=== PATIENT | male | born 1960 | race Two or more races ===

== ENCOUNTER → 2020-03-21 10:57 | Outpatient (BNVA) | payer OTHER, SELFPAY | PROVIDERS: PCP Physician Assistant; Visit Provider Family Medicine Adult Medicine | DX: M54.16 Radiculopathy, lumbar region (principal); M06.9 Rheumatoid arthritis, unspecified; B20 Human immunodeficiency virus [HIV] disease; Z79.891 Long term (current) use of opiate analgesic | CPT/HCPCS: 99214 ==

== ENCOUNTER → 2020-04-08 11:39 | Outpatient (BNVA) | payer OTHER, SELFPAY | PROVIDERS: PCP Physician Assistant; Referring Provider Physician Assistant; Visit Provider Nurse Practitioner | DX: K52.9 Noninfective gastroenteritis and colitis, unspecified (principal); D12.6 Benign neoplasm of colon, unspecified; B20 Human immunodeficiency virus [HIV] disease | CPT/HCPCS: 99203 ==

== ENCOUNTER → 2020-05-28 14:36 | Outpatient (BNVA) | payer OTHER, SELFPAY | PROVIDERS: PCP Physician Assistant; Visit Provider Student in an Organized Health Care Education/Training Program | DX: Z13.89 Encounter for screening for other disorder (principal) | CPT/HCPCS: Q3014 ==

== ENCOUNTER → 2020-06-17 15:53 | Outpatient (BNVA) | payer OTHER, SELFPAY | PROVIDERS: PCP Physician Assistant; Visit Provider Family Medicine Adult Medicine | DX: M25.559 Pain in unspecified hip (principal); M54.16 Radiculopathy, lumbar region; M06.9 Rheumatoid arthritis, unspecified; B20 Human immunodeficiency virus [HIV] disease | CPT/HCPCS: 99212 ==

== ENCOUNTER 2020-06-18 15:17 | Outpatient (REF) | payer OTHER, SELFPAY ==
--- NOTE | 2020-06-18 15:41 | XR_ITS ---
EXAMINATION: XR HIP, RIGHT CLINICAL INFORMATION: Pain COMPARISON: XR pelvis dated 01/20/2019 TECHNIQUE: Two views of the right hip. FINDINGS: No acute fracture or dislocation. Femoral head is spherical. Mild joint space narrowing. Soft tissues unremarkable. XR/XR hip RT min 2V IMPRESSION: No acute fracture or dislocation. Mild right hip joint space narrowing.
[2020-06-18 16:01] LABS: MANUAL DIFF FLAG NO
[2020-06-18 16:02] LABS: Basophils Percent Auto 0.6 % (0-2); Eosinophils Absolute Auto 0.2 X10*3/uL (0.0-0.4); Eosinophils Percent Auto 2.9 % (0-4); Hematocrit 43.8 % (42-52); Hemoglobin 14.4 g/dl (14.0-18.0); Imm Gran Abs Auto 0.03 X10*3/uL (0.00-0.03); Imm Gran Pct Auto 0.4 % (0.0-0.4); Lymphocytes Absolute Auto 2.8 X10*3/uL (1.2-4.9); Lymphocytes Percent Auto 39.3 % (20-40); Mean Corpuscular HGB Conc 32.9 g/dl (31.0-36.0); Mean Corpuscular Hemoglobin 33.5 pg (27.0-33.0); Mean Corpuscular Volume 101.9 fL (80-98); Mean Platelet Volume 10.6 fL (9.4-12.4); Monocytes Absolute Auto 0.6 X10*3/uL (0.1-1.2); Monocytes Percent Auto 8.7 % (2-11); Neutrophils Absolute Auto 3.4 X10*3/uL (2.0-8.3); Neutrophils Percent Auto 48.1 % (45-73); Platelet Count 213 X10*3/uL (160-400); Red Cell Distribution Width 12.6 % (11.0-16.0); White Blood Count 7.1 X10*3/uL (4.8-10.8)
[2020-06-18 17:05] LABS: Alanine Aminotransferase 33 U/L (0-40); Albumin Level 4.4 g/dL (3.5-5.0); Alkaline Phosphatase 72 U/L (39-117); Anion Gap 10 (12-20); Aspartate Amino Transferase 26 U/L (5-37); Bilirubin Total 0.6 mg/dL (0.0-1.0); Blood Urea Nitrogen 15 mg/dL (9-16); Calcium 9.2 mg/dL (8.4-10.2); Carbon Dioxide 34 mmol/L (22-29); Chloride 101 mmol/L (96-108); Estimated Glomerular Filt Rate 53; Glucose Random 101 mg/dL (60-115); Potassium 4.3 mmol/l (3.3-5.1); Sodium 141 mmol/L (135-145)
== END 2020-06-18 15:18 | disposition home or self-care (01) ==
LOC: HO.LAB 15:17
PROVIDERS: Absent Provider Internal Medicine; PCP Physician Assistant; Visit Provider Nurse Practitioner
DX: M25.551 Pain in right hip (principal); K52.9 Noninfective gastroenteritis and colitis, unspecified; D12.6 Benign neoplasm of colon, unspecified
CPT/HCPCS: 36415; 73502; 80053; 85025

== ENCOUNTER 2020-06-26 08:07 | Day surgery (SDC) | payer OTHER, SELFPAY ==
[2020-06-24 15:03] VITALS: BMI 30.8
--- NOTE | 2020-06-25 09:16 | P.CONAN_ITS ---
Documented by User: Kimber Sanchez 06/25/20 09:21 HPI - Anesthesia Eval Consult details Narrative: 59yo M for Colonoscopy PMFSH Past Medical History Medical History Affective bipolar disorder Asthma Asymptomatic HIV infection Chronic colitis Depression Fibromyalgia HIV (human immunodeficiency virus infection) HTN (hypertension) Hypothyroid Left lumbar radiculopathy Overweight PTSD (post-traumatic stress disorder) Renal insufficiency Urinary frequency Family History Family History Father History of cirrhosis Mother History of high blood pressure History of diabetes mellitus History of asthma Surgical History Surgical History History of colonoscopy Social History Social History Alcohol intake: never Smoking Status: Never smoker Use of substances other than those prescribed or required for medical reasons: Yes Substance Use Type: Marijuana Substance Use Frequency: Weekly Advance Directives: No Advance Directives Information Provided: No Advance Directives on File: No Meds Allergies Allergy/AdvReac Type Severity Reaction Status Date / Time baclofen [BACLOFEN] Allergy Unknown SWOLLEN Verified 06/25/20 09:14 LEGS lithium [LITHIUM] Allergy Unknown ALMOST Verified 06/25/20 09:14 , body shuts down methadone [METHADONE] Allergy Unknown HIVES, Verified 06/25/20 09:14 swelling topiramate [From TOPAMAX] Allergy Unknown FAINT Verified 06/25/20 09:14 Amitryptiline Allergy Unknown sleepiness Uncoded 10/01/19 00:00 propranolol Allergy Unknown dizziness Uncoded 10/01/19 00:00 Home Medications Medication Instructions Recorded Confirmed Type alprazolam 1 mg tablet 1 mg PO QID PRN 03/11/20 06/25/20 History wktsrswdrt-ltotamqaqfnjk-sduzkylr 1 tab PO Q4H PRN 03/11/20 06/25/20 History 50 mg-325 mg-40 mg tablet emtricitabine 200 mg-rilpivirine 1 tab PO DAILY 03/11/20 06/25/20 History 25 mg-tenofovir alafenam 25 mg tablet fluticasone 250 mcg-salmeterol 50 1 inh INHALATION BID 03/11/20 06/25/20 History mcg/dose blistr powdr for inhalation lamotrigine 150 mg tablet 150 mg PO BID 03/11/20 06/25/20 History methocarbamol 750 mg tablet 750 mg PO TID 03/11/20 06/25/20 History multivitamin 1 tab PO DAILY 03/11/20 06/25/20 History cholecalciferol (vitamin D3) 25 25 mcg PO DAILY 03/21/20 06/25/20 History mcg (1,000 unit) tablet duloxetine 20 mg capsule,delayed 40 mg PO BID 03/21/20 06/25/20 History release zolpidem 10 mg tablet 10 mg PO BEDTIME 03/21/20 06/25/20 History ibuprofen 800 mg tablet 800 mg PO TID PRN tab 05/28/20 06/25/20 History levothyroxine 200 mcg tablet 200 mcg PO DAILY tab 05/28/20 06/25/20 History promethazine 25 mg tablet 25 mg PO PRN tab 05/28/20 06/25/20 History Exam Exam Date and Time: June 25, 2020 0916 Height,Weight and Vital Signs: Height 6 ft 2 in Weight 108.862 kg Pertinent Lab Results Pertinent Lab Results: Laboratory Tests 06/18/20 06/18/20 15:31 15:31 WBC 7.1 Hgb 14.4 Hct 43.8 Plt Count 213 Sodium 141 Potassium 4.3 Chloride 101 Carbon Dioxide 34 H BUN 15 Creatinine 1.37 Assessment and Plan Assessment Anesthesia Assessment: Chart Reviewed Documented by User: Jasmin Farias 06/26/20 08:55 [facility] Past Medical History Medical History Affective bipolar disorder Asthma Asymptomatic HIV infection Chronic colitis Depression Fibromyalgia HIV (human immunodeficiency virus infection) HTN (hypertension) Hypothyroid Left lumbar radiculopathy Overweight PTSD (post-traumatic stress disorder) Renal insufficiency Urinary frequency Family History Family History Father History of cirrhosis Mother History of high blood pressure History of diabetes mellitus History of asthma Surgical History Surgical History History of colonoscopy Social History Social History Alcohol intake: never Smoking Status: Never smoker Use of substances other than those prescribed or required for medical reasons: Yes Substance Use Type: Marijuana Substance Use Frequency: Weekly Advance Directives: No Advance Directives Information Provided: No Advance Directives on File: No Meds Allergies Allergy/AdvReac Type Severity Reaction Status Date / Time baclofen [BACLOFEN] Allergy Unknown SWOLLEN Verified 06/25/20 09:14 LEGS lithium [LITHIUM] Allergy Unknown ALMOST Verified 06/25/20 09:14 , body shuts down methadone [METHADONE] Allergy Unknown HIVES, Verified 06/25/20 09:14 swelling topiramate [From TOPAMAX] Allergy Unknown FAINT Verified 06/25/20 09:14 Amitryptiline Allergy Unknown sleepiness Uncoded 10/01/19 00:00 propranolol Allergy Unknown dizziness Uncoded 10/01/19 00:00 Home Medications Medication Instructions Recorded Confirmed Type alprazolam 1 mg tablet 1 mg PO QID PRN 03/11/20 06/25/20 History pylsngzdcr-mofmzrpsqqeyx-pgqifxac 1 tab PO Q4H PRN 03/11/20 06/25/20 History 50 mg-325 mg-40 mg tablet emtricitabine 200 mg-rilpivirine 1 tab PO DAILY 03/11/20 06/25/20 History 25 mg-tenofovir alafenam 25 mg tablet fluticasone 250 mcg-salmeterol 50 1 inh INHALATION BID 03/11/20 06/25/20 History mcg/dose blistr powdr for inhalation lamotrigine 150 mg tablet 150 mg PO BID 03/11/20 06/25/20 History methocarbamol 750 mg tablet 750 mg PO TID 03/11/20 06/25/20 History multivitamin 1 tab PO DAILY 03/11/20 06/25/20 History cholecalciferol (vitamin D3) 25 25 mcg PO DAILY 03/21/20 06/25/20 History mcg (1,000 unit) tablet duloxetine 20 mg capsule,delayed 40 mg PO BID 03/21/20 06/25/20 History release zolpidem 10 mg tablet 10 mg PO BEDTIME 03/21/20 06/25/20 History ibuprofen 800 mg tablet 800 mg PO TID PRN tab 05/28/20 06/25/20 History levothyroxine 200 mcg tablet 200 mcg PO DAILY tab 05/28/20 06/25/20 History promethazine 25 mg tablet 25 mg PO PRN tab 05/28/20 06/25/20 History Exam Airway Mallampati Class: II TM Dist: >3cm Neck ROM: Full Partial: Upper and Lower
[2020-06-26 08:32] VITALS: BP 173/95; PULSE 83; RESP 18; TEMP 35.8; O2SAT 98
[2020-06-26] MEDS: Lactated Ringers 1,000 ML 100 ML IVCONT (08:37)
--- NOTE | 2020-06-26 08:48 | P.HPSUR_ITS ---
Pre-Procedural Eval Section B Chief Complaint: Tubular Adenoma of Colon Relevant Family History (Specify if Yes): No Relevant Social History: Other (specify) (THC) Present Medications: see Short Stay Collaborative assessment Medical History: Significant History (Affective bipolar disorder Asthma Asymptomatic HIV infection Chronic colitis Depression Fibromyalgia HIV (human immunodeficiency virus infection) HTN (hypertension) Hypothyroid Left lumbar ra diculopathy Overweight PTSD (post-traumatic stress disorder) Renal insufficiency Urinary frequency) History of Previous Operations: Relevant previous surgery/procedure and date(s) (colonoscopy) Allergies: Allergies Allergy/AdvReac Type Severity Reaction Status Date / Time baclofen [BACLOFEN] Allergy Unknown SWOLLEN Verified 06/25/20 09:14 LEGS lithium [LITHIUM] Allergy Unknown ALMOST Verified 06/25/20 09:14 , body shuts down methadone [METHADONE] Allergy Unknown HIVES, Verified 06/25/20 09:14 swelling topiramate [From TOPAMAX] Allergy Unknown FAINT Verified 06/25/20 09:14 Amitryptiline Allergy Unknown sleepiness Uncoded 10/01/19 00:00 propranolol Allergy Unknown dizziness Uncoded 10/01/19 00:00 Review of Systems Sugical H&P ROS: Negative: Constitution, Cardiovascular, Respiratory, Neurological, Psychiatric, Hem-Onc, Allergic/Immunologic, Gastrointestinal, Genitourinary, Musculoskeletal, Integumentary, Endocrine and Eyes/Ears/Nose/Throat Exam Surgical H&P Exam: Normal: HEENT, Normal: Heart, Normal: Lungs, Normal: Extremities, Normal: Abdomen, Normal: Skin and Normal: Neurological Plan Diagnosis/Plan: Unchanged I have reviewed the history and physical and performed a pertinent physical examination on my patient. No changes have occurred unless specified.
--- NOTE | 2020-06-26 08:49 | P.OP_ITS ---
Operative Note Operative Note Date of Service: 06/26/20 Narrative: Operative Information Procedure Description: Colonoscopy COLONOSCOPY Instrument: Olympus variable stiffness pediatric scope 190L Colonoscopy Monitoring: Vital signs and clinical assessment, continuous EKG monitoring, Pulse oximetry, Carbon Dioxide monitoring and blood pressure monitoring were done throughout the procedure. Colon withdrawal time was 13 minutes. Procedure: The patient was placed in the left lateral decubitis position and pre-procedure medications were administered. After a digital rectal examination of the ano-rectum, the video colonoscope was inserted into the rectum and advanced through the colon to the cecum/TI. The colonoscope was slowly withdrawn in a retrograde panoramic fashion and the colon mucosa was carefully examined including a retroflexed view of the rectum. Findings and interventions are described below. Procedure Difficulty:easy Findings: Terminal Ileum-normal Cecum:normal Ascending Colon: normal Transverse Colon -normal Descending Colon:normal Sigmoid Colon: normal Rectum: Retroflexion with small internal hemorrhoids, grade I, there was diffuse rectal erythema bx taken Anorectum - normal Colon preparation: Hermann Bowel Preparation Scale Right colon; 3 Transverse colon: 3 Left colon; 3 (0 = Unprepared colon segment with mucosa not seen due to solid stool that cannot be cleared. 1 = Portion of mucosa of the colon segment seen, but other areas of the colon segment not well seen due to staining, residual stool and/or opaque liquid. 2 = Minor amount of residual staining, small fragments of stool and/or opaque liquid, but mucosa of colon segment seen well. 3 = Entire mucosa of colon segment seen well with no residual staining, small fragments of stool or opaque liquid) Impression and Post Procedure Diagnosis: rectal erythema, internal hemorrhoids Plan: High fiber diet leaflet Avoid straining at stool, epsom salts and sitz bath, anusol supps or cream Repeat Colonoscopy in 10 years or earlier if clinically indicated Above findings were reviewed with the patient and relevant handouts were provided if indicated.
--- NOTE | 2020-06-26 08:49 | PM.OP ---
Brief Operative Note Date of Service: 06/26/20 Post-op diagnosis: same Procedure: see op note Surgeon: Shahriar Su MD Anesthesia: MAC Estimated blood loss (mL): 0 Condition: stable Disposition: PACU
[2020-06-26 09:18] VITALS: BP 124/77; PULSE 75; RESP 20; TEMP 37.4; O2SAT 96
[2020-06-26 09:31] VITALS: BP 132/77; PULSE 67; RESP 20; O2SAT 97
[2020-06-26 09:45] VITALS: TEMP 36.6
--- NOTE | 2020-06-26 09:58 | HO.POSTANES ---
Post Anesthesia Evaluation Post Anesthesia Evaluation Vital Signs: Vital Signs Temp Pulse Resp BP Pulse Ox 06/26/20 09:45 97.8 F 06/26/20 09:31 67 20 132/77 97 06/26/20 09:18 99.3 F 75 20 124/77 96 06/26/20 08:32 96.5 F L 83 18 173/95 H 98 Anesthesia: General (tiva) Mental Status: Awake Pain Control: Satisfactory Nausea/Vomiting: None Hydration: Adequate Anesthesia-Related Issues: No Anes. Related Issues
== END 2020-06-26 10:57 | disposition home or self-care (01) ==
PROVIDERS: PCP Physician Assistant; Visit Provider Internal Medicine Gastroenterology
PROC: 0DJD8ZZ Inspection of Lower Intestinal Tract, Via Natural or Artificial Opening Endoscopic (ICD-10-PCS; CPT 45378; principal; 2020-06-26 09:20)
DX: Z12.11 Encounter for screening for malignant neoplasm of colon (principal); Z86.010 Personal history of colon polyps; K64.0 First degree hemorrhoids; K62.89 Other specified diseases of anus and rectum; K52.9 Noninfective gastroenteritis and colitis, unspecified; I10 Essential (primary) hypertension; F43.10 Post-traumatic stress disorder, unspecified; J45.909 Unspecified asthma, uncomplicated; N28.9 Disorder of kidney and ureter, unspecified; F31.9 Bipolar disorder, unspecified; Z21 Asymptomatic human immunodeficiency virus [HIV] infection status; F12.90 Cannabis use, unspecified, uncomplicated; Z79.51 Long term (current) use of inhaled steroids; Z79.899 Other long term (current) drug therapy; Z88.8 Allergy status to other drugs, medicaments and biological substances
CPT/HCPCS: 45380; 88305

== ENCOUNTER → 2020-07-03 09:45 | Outpatient (BNVA) | payer OTHER, SELFPAY | PROVIDERS: PCP Physician Assistant; Visit Provider Nurse Practitioner ==

== ENCOUNTER → 2020-08-14 14:41 | Outpatient (BNVA) | payer OTHER, SELFPAY | PROVIDERS: PCP Physician Assistant; Visit Provider Family Medicine Adult Medicine | DX: M54.16 Radiculopathy, lumbar region (principal); M25.559 Pain in unspecified hip; M06.9 Rheumatoid arthritis, unspecified; B20 Human immunodeficiency virus [HIV] disease; Z79.899 Other long term (current) drug therapy | CPT/HCPCS: Q3014 ==

== ENCOUNTER → 2020-09-01 10:04 | Outpatient (BNVA) | payer OTHER, SELFPAY | PROVIDERS: PCP Physician Assistant; Visit Provider Orthopaedic Surgery | DX: M53.87 Other specified dorsopathies, lumbosacral region (principal); M54.16 Radiculopathy, lumbar region | CPT/HCPCS: 99202 ==

== ENCOUNTER → 2020-09-16 09:51 | Outpatient (BNVA) | payer OTHER, SELFPAY | PROVIDERS: PCP Physician Assistant; Visit Provider Family Medicine Adult Medicine | DX: M25.559 Pain in unspecified hip (principal); M54.16 Radiculopathy, lumbar region; M06.9 Rheumatoid arthritis, unspecified; B20 Human immunodeficiency virus [HIV] disease | CPT/HCPCS: 99212 ==

== ENCOUNTER 2020-09-30 16:09 | Outpatient (REF) | payer OTHER, SELFPAY ==
[2020-09-30 17:22] LABS: Hematocrit 39.7 % (42-52); Hemoglobin 13.2 g/dl (14.0-18.0); Mean Corpuscular HGB Conc 33.2 g/dl (31.0-36.0); Mean Corpuscular Hemoglobin 32.8 pg (27.0-33.0); Mean Corpuscular Volume 98.8 fL (80-98); Mean Platelet Volume 10.8 fL (9.4-12.4); Platelet Count 197 X10*3/uL (160-400); Red Blood Count 4.02 X10*6/uL (4.60-5.80); Red Cell Distribution Width 12.1 % (11.0-16.0); White Blood Count 5.6 X10*3/uL (4.8-10.8)
[2020-09-30 17:42] LABS: Microalbum/Creatinine Ratio Ur 5.8 ug/mg cr
[2020-09-30 17:43] LABS: Alanine Aminotransferase 24 U/L (0-40); Albumin Level 4.2 g/dL (3.5-5.0); Alkaline Phosphatase 83 U/L (39-117); Anion Gap 10 (12-20); Aspartate Amino Transferase 19 U/L (5-37); Bilirubin Total 0.7 mg/dL (0.0-1.0); Blood Urea Nitrogen 20 mg/dL (9-16); Calcium 9.1 mg/dL (8.4-10.2); Carbon Dioxide 28 mmol/L (22-29); Chloride 109 mmol/L (96-108); Cholesterol 165 mg/dL; Estimated Glomerular Filt Rate > 60; Glucose Random 89 mg/dL (60-115); HDL Cholesterol 38 mg/dL; LDL Cholesterol Calculated 98 mg/dl; Potassium 4.1 mmol/L (3.3-5.1); Sodium 143 mmol/L (135-145); Total Protein 6.7 g/dL (6.5-8.0); Triglycerides 148 mg/dL
[2020-09-30 18:05] LABS: TSH reflex Free T4 4.17 uIU/mL (0.32-4.0)
[2020-09-30 18:51] LABS: Free T4 (Free Thyroxine) 0.87 ng/dL (0.71-1.85)
[2020-10-01 08:34] LABS: Estimated Average Glucose 105 mg/dL; Hemoglobin A1c % 5.3 %
== END 2020-09-30 16:10 | disposition home or self-care (01) ==
LOC: HO.LAB 16:09
PROVIDERS: Absent Provider Internal Medicine Nephrology; PCP Physician Assistant; Visit Provider Physician Assistant
DX: I13.0 Hypertensive heart and chronic kidney disease with heart failure and stage 1 through stage 4 chronic kidney disease, or unspecified chronic kidney disease (principal); I50.9 Heart failure, unspecified; N18.30 Chronic kidney disease, stage 3 unspecified; E03.9 Hypothyroidism, unspecified; E66.09 Other obesity due to excess calories; Z12.5 Encounter for screening for malignant neoplasm of prostate
CPT/HCPCS: 36415; 80053; 80061; 82043; 83036; 84439; 84443; 85027

== ENCOUNTER 2020-10-03 13:33 | Outpatient (REF) | payer OTHER, SELFPAY ==
--- NOTE | ~2020-10-03 | MR_ITS ---
EXAMINATION: MR LUMBAR SPINE WITHOUT CONTRAST CLINICAL INFORMATION: Low back pain. Left lower extremity pain. COMPARISON: CT scan of the abdomen and pelvis 04/13/2017. TECHNIQUE: MRI of the lumbar spine was obtained using routine sequences without contrast. FINDINGS: Alignment is normal. Vertebral body heights are preserved. There are type II degenerative endplate changes at L5-S1. There is loss of intervertebral disc height and T2 signal intensity at L5-S1 related to disc degeneration. The tip of the conus medullaris is located at T12-L1. No mass effect on the conus. Visualized distal cord signal intensity is normal. At L1-L2 the annular contour is normal. No canal or neuroforaminal compromise. At L2-L3 there is a diffusely bulging disc. No canal stenosis. No mass effect on the traversing or foraminal nerve roots. At L3-L4 there is a diffusely bulging disc. No canal stenosis. No mass effect on the traversing or foraminal nerve roots. At L4-L5 there is a diffusely bulging disc. Advanced facet degenerative change. There is also a tiny synovial cyst arising from the left L4-L5 facet joint. Moderate to severe canal stenosis. Asymmetric narrowing of the left subarticular zone causes displacement and likely compression of the left traversing L5 nerve roots. No foraminal nerve root compression. At L5-S1 there is a diffusely bulging disc. Bilateral facet degenerative change. No canal stenosis. Moderate compression of the left L5 foraminal nerve root and mild compression of the right L5 foraminal nerve root. Limited visualization the retroperitoneal anatomy reveals no abnormal finding. Psoas and paraspinal muscle groups are symmetric. MR/MR lumbar spine wo con IMPRESSION: There is multilevel degenerative spondylosis of the lumbar spine. Moderate to severe canal stenosis at L4-L5. Otherwise no canal compromise. There is a relatively small synovial cyst arising from the left L4-L5 facet joint which in conjunction with a bulging disc causes asymmetric narrowing of the left subarticular zone with medial placement and likely compression of the left traversing L5 nerve roots. A bulging disc in conjunction with facet degenerative change at L5-S1 also causes moderate compression of left L5 foraminal nerve root and mild compression of the right L5 foraminal nerve root.
== END 2020-10-03 13:34 | disposition home or self-care (01) ==
LOC: HO.MRI 13:33
PROVIDERS: Visit Provider Orthopaedic Surgery
DX: M53.87 Other specified dorsopathies, lumbosacral region (principal); M54.16 Radiculopathy, lumbar region
CPT/HCPCS: 72148

== ENCOUNTER → 2020-10-14 13:48 | Outpatient (BNVA) | payer OTHER, SELFPAY | PROVIDERS: PCP Physician Assistant; Visit Provider Family Medicine Adult Medicine | DX: M54.16 Radiculopathy, lumbar region (principal); M25.559 Pain in unspecified hip | CPT/HCPCS: Q3014 ==

== ENCOUNTER → 2020-11-12 15:12 | Outpatient (BNVA) | payer OTHER, SELFPAY | PROVIDERS: PCP Physician Assistant; Visit Provider Nurse Practitioner Family | DX: M54.16 Radiculopathy, lumbar region (principal); M25.559 Pain in unspecified hip; M06.9 Rheumatoid arthritis, unspecified; B20 Human immunodeficiency virus [HIV] disease | CPT/HCPCS: 99212 ==

== ENCOUNTER → 2020-12-11 09:36 | Outpatient (BNVA) | payer OTHER, SELFPAY | PROVIDERS: PCP Physician Assistant; Visit Provider Family Medicine Adult Medicine | DX: M54.16 Radiculopathy, lumbar region (principal); M25.559 Pain in unspecified hip; M06.9 Rheumatoid arthritis, unspecified; B20 Human immunodeficiency virus [HIV] disease | CPT/HCPCS: 99212 ==

== ENCOUNTER → 2021-01-08 13:45 | Outpatient (BNVA) | payer OTHER, SELFPAY | PROVIDERS: PCP Physician Assistant; Visit Provider Family Medicine Adult Medicine | DX: Z51.81 Encounter for therapeutic drug level monitoring (principal); M25.559 Pain in unspecified hip; M54.16 Radiculopathy, lumbar region; M06.9 Rheumatoid arthritis, unspecified; B20 Human immunodeficiency virus [HIV] disease | CPT/HCPCS: 99212 ==

== ENCOUNTER → 2021-01-26 14:58 | Outpatient (BNVA) | payer OTHER, SELFPAY | PROVIDERS: Visit Provider Orthopaedic Surgery | DX: M54.16 Radiculopathy, lumbar region (principal) | CPT/HCPCS: 99212 ==

== ENCOUNTER → 2021-02-10 14:50 | Outpatient (BNVA) | payer OTHER, SELFPAY | PROVIDERS: PCP Physician Assistant; Visit Provider Family Medicine Adult Medicine | DX: M54.16 Radiculopathy, lumbar region (principal); M47.16 Other spondylosis with myelopathy, lumbar region | CPT/HCPCS: 99212 ==

== ENCOUNTER → 2021-02-25 14:57 | Outpatient (BNVA) | payer MEDICARE, MEDICAID, SELFPAY | PROVIDERS: PCP Physician Assistant; Visit Provider Anesthesiology | DX: M54.16 Radiculopathy, lumbar region (principal); M79.7 Fibromyalgia; M48.061 Spinal stenosis, lumbar region without neurogenic claudication; I10 Essential (primary) hypertension; E03.9 Hypothyroidism, unspecified; Z21 Asymptomatic human immunodeficiency virus [HIV] infection status; Z79.891 Long term (current) use of opiate analgesic; Z88.8 Allergy status to other drugs, medicaments and biological substances; Z79.899 Other long term (current) drug therapy | CPT/HCPCS: 99212 ==

== ENCOUNTER → 2021-03-10 14:32 | Outpatient (BNVA) | payer MEDICARE, MEDICAID, SELFPAY | PROVIDERS: PCP Physician Assistant; Visit Provider Family Medicine Adult Medicine | DX: Z51.81 Encounter for therapeutic drug level monitoring (principal); M54.16 Radiculopathy, lumbar region; M51.36 Other intervertebral disc degeneration, lumbar region; M48.061 Spinal stenosis, lumbar region without neurogenic claudication; M47.16 Other spondylosis with myelopathy, lumbar region; M16.10 Unilateral primary osteoarthritis, unspecified hip | CPT/HCPCS: 99212 ==

== ENCOUNTER → 2021-04-07 14:07 | Outpatient (BNVA) | payer OTHER, SELFPAY | PROVIDERS: Visit Provider Family Medicine Adult Medicine | DX: Z51.81 Encounter for therapeutic drug level monitoring (principal); M48.061 Spinal stenosis, lumbar region without neurogenic claudication; M51.36 Other intervertebral disc degeneration, lumbar region; Z79.891 Long term (current) use of opiate analgesic | CPT/HCPCS: Q3014 ==

== ENCOUNTER 2021-04-21 11:20 | Outpatient (REF) | payer OTHER, SELFPAY ==
[2021-04-21 12:39] LABS: Anion Gap 13 (12-20); Blood Urea Nitrogen 21 mg/dL (9-16); Calcium 9.1 mg/dL (8.4-10.2); Carbon Dioxide 28 mmol/L (22-29); Chloride 105 mmol/L (96-108); Estimated Glomerular Filt Rate 45; Potassium 3.9 mmol/L (3.3-5.1); Sodium 142 mmol/L (135-145)
[2021-04-21 14:12] LABS: Creatinine Urine 351.51 mg/dL; Protein/Creatinine Ratio, Ur 0.06 (<0.2); Total Protein Urine Random 21 mg/dL (<12)
== END 2021-04-21 11:21 | disposition home or self-care (01) ==
LOC: HO.LAB 11:20
PROVIDERS: PCP Physician Assistant; Visit Provider Internal Medicine Nephrology
DX: N18.30 Chronic kidney disease, stage 3 unspecified (principal)
CPT/HCPCS: 36415; 80051; 82310; 82565; 84156; 84520

== ENCOUNTER 2021-05-15 15:41 | Outpatient (REF) | payer OTHER, SELFPAY ==
[2021-05-15 16:39] LABS: Influenza A PCR NEGATIVE (Negative); Influenza B PCR NEGATIVE (Negative); Resp Syncy Virus RNA Qual PCR NEGATIVE (Negative); SARS COV2 PCR INHOUSE NEGATIVE (Negative)
== END 2021-05-15 15:42 | disposition home or self-care (01) ==
LOC: HO.LAB 15:41
PROVIDERS: PCP Physician Assistant; Visit Provider Physician Assistant
DX: Z20.822 Contact with and (suspected) exposure to COVID-19 (principal); J06.9 Acute upper respiratory infection, unspecified
CPT/HCPCS: 0241U; 36415

== ENCOUNTER → 2021-05-22 09:57 | Day surgery (SDC) | payer OTHER, SELFPAY ==
[2021-05-18 14:46] VITALS: BMI 32.1
--- NOTE | 2021-05-21 10:52 | HO.ANESPROP2 ---
Documented by User: Kimber Sanchez NP 05/21/21 10:58 HPI - Anesthesia Eval Consult details Narrative: 60yo M for Left L4-L5 & L5-S1 Transforaminal Epidural Steroid Injection 05/15 Flu and Covid testing, both negative. T/C to patient 05/21/21 to eval for optimized, but no answer. Voicemail left. 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 (Acute) Disc degeneration, lumbar (Acute) Spinal stenosis at L4-L5 level (Acute) Allergic rhinitis (Acute) Urinary incontinence, functional (Acute) Lumbar spondylosis with myelopathy (Acute) Bilateral lower extremity edema (Acute) Primary osteoarthritis of hip (Acute) Hip pain (Acute) GERD (gastroesophageal reflux disease) (Acute) Fibromyalgia (Acute) Sciatica associated with disorder of lumbosacral spine (Acute) Tubular adenoma of colon (Acute) Left lumbar radiculopathy (Acute) Chronic colitis (Acute) Urinary frequency (Acute) Depression (Acute) PTSD (post-traumatic stress disorder) (Acute) Overweight (Acute) Hypothyroid (Acute) HTN (hypertension) (Acute) Renal insufficiency (Acute) Affective bipolar disorder (Acute) Asthma (Acute) HIV (human immunodeficiency virus infection) (Acute) Past Medical History Medical History Affective bipolar disorder Asthma Asymptomatic HIV infection Chronic colitis Depression Disc degeneration, lumbar Fibromyalgia HIV (human immunodeficiency virus infection) HTN (hypertension) Hypothyroid Left lumbar radiculopathy 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 Overweight PTSD (post-traumatic stress disorder) Renal insufficiency Spinal stenosis at L4-L5 level Urinary frequency Family History Family History Father History of cirrhosis Mother History of high blood pressure History of diabetes mellitus History of asthma Surgical History Surgical History History of colonoscopy Social History Social History Housing: Apartment Alcohol intake: never Patient Tobacco Use Status: Never used Tobacco Second Hand Smoke Exposure: Yes Are you DNR?: No Advance Directives: No Advance Directives Information Provided: Yes Advance Directives on File: No Current occupational status: disabled Meds Allergies Allergy/AdvReac Type Severity Reaction Status Date / Time baclofen [BACLOFEN] Allergy Unknown SWOLLEN Verified 05/22/21 10:16 LEGS lithium [LITHIUM] Allergy Unknown ALMOST Verified 05/22/21 10:16 , body shuts down methadone [METHADONE] Allergy Unknown HIVES, Verified 05/22/21 10:16 swelling topiramate [From TOPAMAX] Allergy Unknown FAINT Verified 05/22/21 10:16 Amitryptiline Allergy Unknown sleepiness Uncoded 04/07/21 14:23 propranolol Allergy Unknown dizziness Uncoded 04/07/21 14:23 Home Medications Medication Instructions Recorded Confirmed Last Taken Type alprazolam 1 mg tablet 1 mg PO QID PRN 03/11/20 05/18/21 Unknown History fluticasone 250 mcg-salmeterol 50 1 inh INHALATION BID 03/11/20 05/18/21 Unknown History mcg/dose blistr powdr for inhalation lamotrigine 150 mg tablet 150 mg PO BID 03/11/20 05/18/21 Unknown History multivitamin 1 tab PO DAILY 03/11/20 05/18/21 Unknown History duloxetine 20 mg capsule,delayed 40 mg PO BID 03/21/20 05/18/21 Unknown History release promethazine 25 mg tablet 25 mg PO DAILY PRN tab 05/28/20 05/18/21 Unknown History diphenhydramine HCl 25 mg capsule 25 mg PO Q12H PRN 01/26/21 05/18/21 Unknown History (Banophen) emtricitabine 200 mg-rilpivirine 1 tab PO DAILY 05/18/21 05/18/21 Unknown History 25 mg-tenofovir alafenam 25 mg tablet ([place]) Exam Exam Date and Time: May 21, 2021 1052 Height,Weight and Vital Signs: Height 6 ft 2 in Weight 113.398 kg Pertinent Lab Results Pertinent Lab Results: Laboratory Tests 09/30/20 04/21/21 16:37 11:32 WBC 5.6 Hgb 13.2 L Hct 39.7 L Plt Count 197 Sodium 142 Potassium 3.9 Chloride 105 Carbon Dioxide 28 BUN 21 H Creatinine 1.58 H 05/15/21 Flu and Covid swab both negative Assessment and Plan Assessment Anesthesia Assessment: Chart Reviewed Documented by User: Amna Farias MD 05/22/21 10:18 [facility] Past Medical History Medical History Affective bipolar disorder Asthma Asymptomatic HIV infection Chronic colitis Depression Disc degeneration, lumbar Fibromyalgia HIV (human immunodeficiency virus infection) HTN (hypertension) Hypothyroid 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 radiculopathy 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 Overweight PTSD (post-traumatic stress disorder) Renal insufficiency Spinal stenosis at L4-L5 level Urinary frequency Functional capacity: independent ambulation Family History Family History Father History of cirrhosis Mother History of high blood pressure History of diabetes mellitus History of asthma Family history of problems with anesthesia: No Surgical History Surgical History History of colonoscopy History of Problems with Anesthesia: No Social History Social History Housing: Apartment Alcohol intake: never Patient Tobacco Use Status: Never used Tobacco Second Hand Smoke Exposure: Yes Are you DNR?: No Advance Directives: No Advance Directives Information Provided: Yes Advance Directives on File: No Current occupational status: disabled Meds Allergies Allergy/AdvReac Type Severity Reaction Status Date / Time baclofen [BACLOFEN] Allergy Unknown SWOLLEN Verified 05/22/21 10:16 LEGS lithium [LITHIUM] Allergy Unknown ALMOST Verified 05/22/21 10:16 , body shuts down methadone [METHADONE] Allergy Unknown HIVES, Verified 05/22/21 10:16 swelling topiramate [From TOPAMAX] Allergy Unknown FAINT Verified 05/22/21 10:16 Amitryptiline Allergy Unknown sleepiness Uncoded 04/07/21 14:23 propranolol Allergy Unknown dizziness Uncoded 04/07/21 14:23 Home Medications Medication Instructions Recorded Confirmed Last Taken Type alprazolam 1 mg tablet 1 mg PO QID PRN 03/11/20 05/18/21 Unknown History fluticasone 250 mcg-salmeterol 50 1 inh INHALATION BID 03/11/20 05/18/21 Unknown History mcg/dose blistr powdr for inhalation lamotrigine 150 mg tablet 150 mg PO BID 03/11/20 05/18/21 Unknown History multivitamin 1 tab PO DAILY 03/11/20 05/18/21 Unknown History duloxetine 20 mg capsule,delayed 40 mg PO BID 03/21/20 05/18/21 Unknown History release promethazine 25 mg tablet 25 mg PO DAILY PRN tab 05/28/20 05/18/21 Unknown History diphenhydramine HCl 25 mg capsule 25 mg PO Q12H PRN 01/26/21 05/18/21 Unknown History (Banophen) emtricitabine 200 mg-rilpivirine 1 tab PO DAILY 05/18/21 05/18/21 Unknown History 25 mg-tenofovir alafenam 25 mg tablet (Katrina) Exam Airway Mallampati Class: II TM Dist: >3cm Neck ROM: Full Heart: RRR Lungs: CTA Assessment and Plan Final Anesthetic Review Family History of Problems with Anesthesia: No History of Problems with Anesthesia: No ASA Class: II Final Preanesthetic Review: No Changes in Pt Med Stat Patient Risk: Low Procedure Risk: Low Anesthetic Plan Anesthetic Plan: MAC: Disposition: Standard PACU
--- NOTE | ~2021-05-22 | FL_ITS ---
EXAMINATION: XR FLUOROSCOPY WITH IMAGES CLINICAL INFORMATION: Lumbar TFESI. COMPARISON: None. TECHNIQUE: Fluoroscopy performed by Dr. Puneet Gonzalez. Fluoroscopy time: 0.5 minutes DAP: 11 mGycm2 Images: 2 FINDINGS: Images demonstrate needle placement and contrast injection adjacent to the left lateral L4 and L5 vertebral bodies. FL/FL guidance in OR IMPRESSION: Fluoroscopy guidance for pain management procedure.
--- NOTE | 2021-05-22 10:03 | MHC.SHP ---
Pre-Procedural Eval Section A Date of Service: 05/22/21 Changes since office visit: Yes Patient answered all questions The History & Physical has been completed within 30 days and I have reviewed it.: No Section B Chief Complaint: Disc Degeneration Lumbar Details of Present Illness: the same Relevant Family History (Specify if Yes): No Relevant Social History: None Present Medications: see Short Stay Collaborative assessment Medical History: No relevant PMH History of Previous Operations: No relevant previous surgery Allergies: Allergies Allergy/AdvReac Type Severity Reaction Status Date / Time baclofen [BACLOFEN] Allergy Unknown SWOLLEN Verified 04/07/21 14:23 LEGS lithium [LITHIUM] Allergy Unknown ALMOST Verified 04/07/21 14:23 , body shuts down methadone [METHADONE] Allergy Unknown HIVES, Verified 04/07/21 14:23 swelling topiramate [From TOPAMAX] Allergy Unknown FAINT Verified 04/07/21 14:23 Amitryptiline Allergy Unknown sleepiness Uncoded 04/07/21 14:23 propranolol Allergy Unknown dizziness Uncoded 04/07/21 14:23 Review of Systems Sugical H&P ROS: Negative: Constitution, Cardiovascular, Respiratory, Neurological, Psychiatric, Hem-Onc, Allergic/Immunologic, Gastrointestinal, Genitourinary, Musculoskeletal, Integumentary, Endocrine and Eyes/Ears/Nose/Throat Exam Surgical H&P Exam: Normal: HEENT, Normal: Heart, Normal: Lungs, Normal: Extremities, Normal: Abdomen, Normal: Skin and Normal: Neurological Plan Diagnosis/Plan: Unchanged I have reviewed the history and physical and performed a pertinent physical examination on my patient. No changes have occurred unless specified.
[2021-05-22 10:16] VITALS: BP 171/96; PULSE 68; RESP 16; TEMP 36.7; O2SAT 96
[2021-05-22] MEDS: Lactated Ringers 1,000 ML 100 ML IVCONT (10:27)
--- NOTE | 2021-05-22 11:13 | W.PM.OPN ---
Operative Note Operative Note Date of Service: 05/22/21 Narrative: ? THE PATIENT CAME TO THE OPERATING ROOM AFTER OBTAINING INFORMED CONSENT.? THE RISKS OF THE PROCEDURE WERE DELINEATED THE RISK OF BLEEDING INFECTION PERIPHERAL NERVE DAMAGE EPIDURAL HEMATOMA EPIDURAL ABSCESS AND OTHER UNSPECIFIED RISKS.? THE PATIENT WAS POSITIONED PRONE ON THE OPERATING TABLE [employer] MONITORS WERE APPLIED AND PATIENT WAS MODERATELY SEDATED. ? ? ? TIME-OUT WAS OBTAINED DELINEATING CORRECT SIDE AND SITE OF THE PROCEDURE, PATIENT NAME AND DATE OF , NEED OF THE ANTIBIOTIC, RISK OF FIRE. ? ? ? LUMBAR AREA OF THE PATIENT WAS PREPPED WITH CHLORAPREP AND DRAPED WITH STERILE DRAPES, STERILELY DRAPED C-ARM WAS BROUGHT OVER THE OPERATING FIELD AND SQ PICTURE OF L4 VERTEBRA WAS DELINEATED ON THE SCREEN.? C-ARM WAS TILTED 20? TO THE LEFT SIDE AND PICTURE OF THE LEFT PEDICLE L2 VERTEBRA WAS OBTAINED ON THE SCREEN.? 3 MM BELOW THE LOWEST POINT OF THE PEDICLE PROJECTION TO THE SKIN WAS CHOSEN A STARTING POINT OF THE INJECTION.? 22 GAUGE 5 IN SPINAL NEEDLE WAS INSERTED THROUGH THE SKIN AND STARTED TO ADVANCE TO THE FORAMINA IN ANTERIOR POSTERIOR, OBLIQUE AND LATERAL VIEWS IN TUNNEL VISION FASHION.? WHEN ON LATERAL VIEW THE NEEDLE ENTERED THE MOST POSTERIOR AND SUPERIOR PORTION OF THE FORAMINA INJECTION OF THE CONTRAST PERFORMED DELINEATING ANTERIOR EPIDURAL SPREAD OF THE CONTRAST.? AFTER THAT TREATMENT SOLUTION CONTAINING 5 ML OF PRESERVATIVE-FREE LIDOCAINE 1% MIXED WITH KENALOG 40 MG WAS INJECTED INTO THE NEEDLE.? UPON COMPLETION OF THE INJECTION THE NEEDLE WAS REMOVED AND STERILE DRESSING WAS APPLIED.tHE PROCEDURE WAS REPEATED AT SIMILAR FASHION AT L5-S1 LEVEL. INITIALLY UPON THE INJECTION OF THE CONTRAST THE VASCULAR CONTRAST SPREAD WAS DETECTED , THE NEEDLE WAS REPOSITIONED AND CLEAR EPIDURAL AND PERINEURAL L5 IMAGE OF THE CONTRAST WAS DEMONSTRATED ON THE SCREEN. uPON COMPLETION OF THE INJECTION THE NEEDLE WAS REMOVED AND STERILE DRESSING WAS APPLIED. ? PATIENT TOLERATED PROCEDURE WELL HE WAS AWAKEN TAKEN OUTSIDE OF THE OPERATING ROOM TO PACU WHERE HE RECOVERED UNEVENTFULLY.? HE WENT HOME WITHOUT IMMEDIATE COMPLICATIONS.
[2021-05-22 11:16] VITALS: BP 137/97; PULSE 66; RESP 12; TEMP 36.8; O2SAT 96
--- NOTE | 2021-05-22 11:20 | PM.OP ---
Brief Operative Note Date of Service: 05/22/21 Pre-op diagnosis: DISC DEGENERATION LUMBAR Post-op diagnosis: same Procedure: TFESI L4-L5 AND L5-S1 ON THE LEFT Implants: NONE Surgeon: Puneet Gonzalez MD Anesthesia: MAC Was an Body Make Up Artist used for this Procedure?: No Estimated blood loss (mL): 1 Pathology: none sent Condition: stable Disposition: PACU
[2021-05-22] MEDS: Acetaminophen 325 MG TABLET 650 MG PO (11:28)
[2021-05-22] MEDS: oxyCODONE HCl Immed Release 5 MG TABLET PO (11:28)
[2021-05-22 11:30] VITALS: BP 141/86; PULSE 64; RESP 16; TEMP 36.8; O2SAT 96
--- NOTE | 2021-05-22 15:02 | HO.POSTANES ---
Post Anesthesia Evaluation Post Anesthesia Evaluation Vital Signs: Vital Signs Temp Pulse Resp BP Pulse Ox 05/22/21 11:30 98.3 F 64 16 141/86 H 96 05/22/21 11:16 98.3 F 66 12 137/97 H 96 05/22/21 10:16 98.1 F 68 16 171/96 H 96 Anesthesia: Monitored Mental Status: Awake Pain Control: Satisfactory Nausea/Vomiting: None Hydration: Adequate Anesthesia-Related Issues: No Anes. Related Issues
== END | disposition home or self-care (01) ==
PROVIDERS: PCP Physician Assistant; Visit Provider Anesthesiology
PROC: (CPT 64483; principal; 2021-05-22 11:50)
DX: M51.36 Other intervertebral disc degeneration, lumbar region (principal); M54.16 Radiculopathy, lumbar region; M48.061 Spinal stenosis, lumbar region without neurogenic claudication; M54.50 Low back pain, unspecified; M79.7 Fibromyalgia; R26.2 Difficulty in walking, not elsewhere classified; B20 Human immunodeficiency virus [HIV] disease; I10 Essential (primary) hypertension; N28.9 Disorder of kidney and ureter, unspecified; F43.10 Post-traumatic stress disorder, unspecified; Z79.891 Long term (current) use of opiate analgesic; Z79.899 Other long term (current) drug therapy; Z79.51 Long term (current) use of inhaled steroids; Z88.8 Allergy status to other drugs, medicaments and biological substances
CPT/HCPCS: 64483; 64484; J1100; J2250; J2405; J3010; J3300; Q9967

== ENCOUNTER → 2021-05-28 08:21 | Outpatient (BNVA) | payer OTHER, SELFPAY | PROVIDERS: PCP Physician Assistant; Visit Provider Nurse Practitioner Family | DX: Z51.81 Encounter for therapeutic drug level monitoring (principal); M48.061 Spinal stenosis, lumbar region without neurogenic claudication; M51.36 Other intervertebral disc degeneration, lumbar region; Z79.891 Long term (current) use of opiate analgesic | CPT/HCPCS: 99212 ==

== ENCOUNTER → 2021-06-22 11:01 | Outpatient (BNVA) | payer OTHER, SELFPAY | PROVIDERS: PCP Physician Assistant; Visit Provider Anesthesiology | DX: Z51.81 Encounter for therapeutic drug level monitoring (principal); F11.20 Opioid dependence, uncomplicated | CPT/HCPCS: 99212 ==

== ENCOUNTER → 2021-07-22 15:02 | Outpatient (REF) | payer OTHER, SELFPAY ==
--- NOTE | 2021-07-22 15:56 | ECG_ITS ---
Test Reason : PRISON OPIATE USE Blood Pressure : / mmHG Vent. Rate : 075 BPM Atrial Rate : 075 BPM P-R Int : 166 ms QRS Dur : 098 ms QT Int : 400 ms P-R-T Axes : 043 021 039 degrees QTc Int : 446 ms Normal sinus rhythm Normal ECG When compared with ECG of 02-OCT-2015 18:41, No significant change was found Referred By: Sole Zamorano Electronically Signed By:Markos Don
== END ==
LOC: HO.CARD 15:02
PROVIDERS: PCP Physician Assistant; Visit Provider Anesthesiology
DX: M48.061 Spinal stenosis, lumbar region without neurogenic claudication (principal); M51.36 Other intervertebral disc degeneration, lumbar region; Z79.891 Long term (current) use of opiate analgesic
CPT/HCPCS: 93005; 99212

== ENCOUNTER → 2021-08-19 14:17 | Outpatient (BNVA) | payer OTHER, SELFPAY | PROVIDERS: PCP Physician Assistant; Visit Provider Anesthesiology | DX: Z13.89 Encounter for screening for other disorder (principal) ==

== ENCOUNTER 2021-08-25 08:08 | Outpatient (REF) | payer OTHER, SELFPAY ==
[2021-08-25 08:37] LABS: Hematocrit 39.5 % (42.0-52.0); Mean Corpuscular HGB Conc 32.9 g/dl (31.0-36.0); Mean Corpuscular Hemoglobin 34.5 pg (27.0-33.0); Mean Corpuscular Volume 104.8 fL (80.0-98.0); Mean Platelet Volume 10.4 fL (9.4-12.4); Platelet Count 186 X10*3/uL (160-400); Red Blood Count 3.77 X10*6/uL (4.60-5.80); Red Cell Distribution Width 13.2 % (11.0-16.0); White Blood Count 6.6 X10*3/uL (4.8-10.8)
[2021-08-25 08:49] LABS: Estimated Average Glucose 114 mg/dL; Hemoglobin A1c % 5.6 %
[2021-08-25 09:06] LABS: Alanine Aminotransferase 30 U/L (0-40); Albumin Level 4.6 g/dL (3.5-5.0); Alkaline Phosphatase 65 U/L (39-117); Anion Gap 15 (12-20); Aspartate Amino Transferase 30 U/L (5-37); Bilirubin Total 0.4 mg/dL (0.0-1.0); Blood Urea Nitrogen 21 mg/dL (9-16); Calcium 9.3 mg/dL (8.4-10.2); Carbon Dioxide 30 mmol/L (22-29); Chloride 101 mmol/L (96-108); Cholesterol 342 mg/dL; Estimated Glomerular Filt Rate 37; Glucose Fasting 103 mg/dL (60-99); HDL Cholesterol 43 mg/dL; LDL Cholesterol Calculated 240 mg/dl; Potassium 3.9 mmol/L (3.3-5.1); Sodium 142 mmol/L (135-145); Total Protein 7.7 g/dL (6.5-8.0); Triglycerides 295 mg/dL
[2021-08-25 09:21] LABS: Prostate Specific Antigen Scr 0.33 ng/mL (<0.05-4.0); TSH reflex Free T4 31.11 uIU/mL (0.32-4.0)
[2021-08-25 09:43] LABS: Creatinine Urine 265.39 mg/dL; Microalbum/Creatinine Ratio Ur 68.5 ug/mg cr
[2021-08-25 10:24] LABS: Free T4 (Free Thyroxine) 0.55 ng/dL (0.71-1.85)
== END 2021-08-25 08:09 | disposition home or self-care (01) ==
LOC: HO.LAB 08:08
PROVIDERS: PCP Physician Assistant; Visit Provider Physician Assistant
DX: I10 Essential (primary) hypertension (principal); Z12.5 Encounter for screening for malignant neoplasm of prostate
CPT/HCPCS: 36415; 80053; 80061; 82043; 83036; 84153; 84439; 84443; 85027

== ENCOUNTER → 2021-09-14 15:07 | Outpatient (BNVA) | payer OTHER, SELFPAY | PROVIDERS: PCP Physician Assistant; Visit Provider Anesthesiology | DX: Z13.89 Encounter for screening for other disorder (principal) ==

== ENCOUNTER → 2022-02-10 15:40 | Outpatient (BNVA) | payer OTHER, SELFPAY | PROVIDERS: PCP Physician Assistant; Visit Provider Anesthesiology | DX: M48.061 Spinal stenosis, lumbar region without neurogenic claudication (principal); M51.36 Other intervertebral disc degeneration, lumbar region; Z79.891 Long term (current) use of opiate analgesic | CPT/HCPCS: 99212 ==

== ENCOUNTER 2022-02-11 21:38 | Emergency (ER) | payer OTHER, SELFPAY ==
[2022-02-11 21:45] VITALS: BP 192/126; PULSE 80; RESP 18; TEMP 36.1; O2SAT 97; BMI 30.8
[2022-02-11 23:54] VITALS: BP 195/120; PULSE 74
[2022-02-12] VITALS (9 sets, daily range): BP systolic 124–198; BP diastolic 59–127; PULSE 67–81; RESP 12–18; TEMP 36.2; O2SAT 93–97
--- NOTE | 2022-02-12 01:07 | ECG_ITS ---
Test Reason : HTN Blood Pressure : / mmHG Vent. Rate : 068 BPM Atrial Rate : 068 BPM P-R Int : 168 ms QRS Dur : 106 ms QT Int : 356 ms P-R-T Axes : 028 -04 188 degrees QTc Int : 378 ms Normal sinus rhythm Nonspecific T wave abnormality Abnormal ECG When compared with ECG of 22-JUL-2021 15:58, Nonspecific T wave abnormality, worse in Anterolateral leads QT has shortened Referred By: Imelda Valdes Electronically Signed By:NEVA WESTFALL
[2022-02-12 02:12] LABS: MANUAL DIFF FLAG NO
[2022-02-12 02:14] LABS: Basophils Percent Auto 0.5 % (0-2); Eosinophils Absolute Auto 0.1 X10*3/uL (0.0-0.4); Eosinophils Percent Auto 1.9 % (0-4); Hematocrit 36.6 % (42.0-52.0); Hemoglobin 12.3 g/dl (14.0-18.0); Imm Gran Abs Auto 0.02 X10*3/uL (0.00-0.03); Imm Gran Pct Auto 0.3 % (0.0-0.4); Lymphocytes Absolute Auto 1.8 X10*3/uL (1.2-4.9); Lymphocytes Percent Auto 30.9 % (20-40); Mean Corpuscular HGB Conc 33.6 g/dl (31.0-36.0); Mean Corpuscular Volume 101.1 fL (80.0-98.0); Mean Platelet Volume 9.9 fL (9.4-12.4); Monocytes Absolute Auto 0.4 X10*3/uL (0.1-1.2); Monocytes Percent Auto 6.5 % (2-11); Neutrophils Absolute Auto 3.5 x10*3/uL (2.0-8.3); Neutrophils Percent Auto 59.9 % (45-73); Platelet Count 212 X10*3/uL (160-400); Red Blood Count 3.62 X10*6/uL (4.60-5.80); Red Cell Distribution Width 13.2 % (11.0-16.0); White Blood Count 5.8 X10*3/uL (4.8-10.8)
[2022-02-12 02:34] LABS: Troponin-I High Sensitivity 5.7 ng/L (<3.5-35.0)
[2022-02-12 02:35] LABS: Alanine Aminotransferase 29 U/L (0-40); Albumin Level 4.9 g/dL (3.5-5.0); Alkaline Phosphatase 64 U/L (39-117); Anion Gap 20 (12-20); Aspartate Amino Transferase 33 U/L (5-37); Bilirubin Total 0.3 mg/dL (0.0-1.0); Blood Urea Nitrogen 28 mg/dL (9-16); Calcium 9.8 mg/dL (8.4-10.2); Carbon Dioxide 29 mmol/L (22-29); Chloride 97 mmol/L (96-108); Creatinine Clr Calc Pharmacy 50.8; Estimated Glomerular Filt Rate 34; Glucose Random 106 mg/dL (60-115); Potassium 3.9 mmol/L (3.3-5.1); Sodium 142 mmol/L (135-145); Total Protein 8.3 g/dL (6.5-8.0)
--- NOTE | 2022-02-12 02:54 | ED_ITS ---
HPI - General Adult General Chief complaint: General Medical Stated complaint: blood pressure rising Time Seen by Provider: 02/12/22 01:07 Source: patient Mode of arrival: ambulatory Limitations: no limitations History of Present Illness HPI narrative: Patient comes to the emergency room complaining of high blood pressure. Patient states that he has no chest pain, no headache, no visual changes. Patient went to his regular appointment with Dr. Forbes for pain management, his blood pressure was taking, it was 192/122, he was instructed to come to the emergency room. Patient states that he usually takes lisinopril 10 mg. Patient is compliant with his medications. Related Data Home Medications Medication Instructions Recorded Confirmed alprazolam 1 mg tablet 1 mg PO QID PRN Anxiety 03/11/20 09/24/21 fluticasone 250 mcg-salmeterol 50 1 inh inhalation BID 03/11/20 09/24/21 mcg/dose blistr powdr for inhalation lamotrigine 150 mg tablet 150 mg PO BID 03/11/20 09/24/21 multivitamin 1 tab PO DAILY 03/11/20 09/24/21 duloxetine 20 mg capsule,delayed 40 mg PO BID 03/21/20 09/24/21 release zolpidem 10 mg tablet 10 mg PO BEDTIME 09/24/21 09/24/21 Previous Rx's Medication Instructions Recorded disposable gloves (Biobrane Gloves #1,000 ea 06/25/20 Large) incontinence pad, liner, disp #144 ea 06/25/20 (Prevail Bladder Control Pad) miscellaneous medical supply 1 ea miscellaneous ONCE 90 days #2 07/17/20 ea miscellaneous medical supply 1 ea miscellaneous ONCE 90 days #2 08/06/20 ea commode #1 ea 08/29/20 naloxone 4 mg/actuation nasal 4 mg intranasal Q2M PRN opioid 11/12/20 spray (Narcan) overdose #2 ea acetaminophen 650 mg 650 mg PO Q6H #120 tabs 07/30/21 tablet,extended release (Mapap Arthritis Pain) lisinopril 10 1 tab PO DAILY #90 tabs 07/30/21 mg-hydrochlorothiazide 12.5 mg tablet miscellaneous medical supply 1 ea miscellaneous DAILY 99 days 07/30/21 #1 ea tizanidine 4 mg tablet 4 mg PO TID PRN muscle spasticity 07/30/21 #270 tabs disposable gloves (Biobrane Gloves #1,000 ea 08/24/21 Large) miscellaneous medical supply 1 ea miscellaneous DAILY #1 ea 08/24/21 miscellaneous medical supply 1 ea miscellaneous DAILY 99 days 08/24/21 #1 ea levothyroxine 200 mcg tablet 200 mcg PO DAILY 90 days #90 tabs 08/27/21 buprenorphine HCl 900 mcg buccal 900 mcg buccal Q12H pain 30 days 09/14/21 film (Belbuca) #60 ea famotidine 20 mg tablet 20 mg PO BEDTIME #90 tabs 10/14/21 albuterol sulfate 90 mcg/actuation 2 puff inhalation Q6H PRN for 11/19/21 aerosol inhaler wheezing #8.5 grams fluticasone propionate 50 2 spray intranasal DAILY 30 days 12/18/21 mcg/actuation nasal #48 mL spray,suspension cholecalciferol (vitamin D3) 25 25 mcg PO DAILY #90 tabs 12/22/21 mcg (1,000 unit) tablet (Vitamin D3) diphenhydramine HCl 25 mg capsule 25 mg PO Q12H #60 caps 01/19/22 (Banophen) fluticasone propionate 110 1 puff inhalation BID 30 days #12 01/19/22 mcg/actuation HFA aerosol inhaler grams (Flovent HFA) gabapentin 800 mg tablet 800 mg PO TID #90 tabs 01/19/22 promethazine 25 mg tablet 25 mg PO DAILY PRN Nausea 30 days 01/19/22 #30 tabs ibuprofen 800 mg tablet 800 mg PO TID PRN Pain 30 days #90 02/06/22 tabs Allergies Allergy/AdvReac Type Severity Reaction Status Date / Time baclofen [BACLOFEN] Allergy Unknown SWOLLEN Verified 02/12/22 05:54 LEGS lithium [LITHIUM] Allergy Unknown ALMOST Verified 02/12/22 05:54 , body shuts down methadone [METHADONE] Allergy Unknown HIVES, Verified 02/12/22 05:54 swelling topiramate [From TOPAMAX] Allergy Unknown FAINT Verified 02/12/22 05:54 Amitryptiline Allergy Unknown sleepiness Uncoded 02/12/22 05:54 propranolol Allergy Unknown dizziness Uncoded 02/12/22 05:54 Review of Systems Review of Systems: Constitutional : No Weight loss, No Fever, No Chills, No Night Sweats, No Fatigue, No Malaise ENT/Mouth : No Hearing loss, No Ear Pain, No Nasal Congestion, No Sinus Pain, No Hoarseness, No sore throat, No Rhinorrhea, No Swallowing Difficulty Eyes: No Eye Pain, No Swelling, No Redness, No Foreign Body, No Discharge, No Vision Changes Cardiovascular : Complaining of high blood pressure, No Chest Pain, No SOB, No Dyspnea on Exertion, No Orthopnea, No Edema, No Palpitations Respiratory : No Cough, No Sputum, No Wheezing, No Smoke Exposure, No Dyspnea Gastrointestinal : No Nausea, No Vomiting, No Diarrhea, No Constipation, No abdominal Pain, No Hematochezia, No Melena Genitourinary : no irregular bleeding, No Dysuria, No Urinary Frequency, No H ematuria, No Urinary Incontinence, No Urgency, No Flank Pain, No Urinary Flow Changes, No Hesitancy Musculoskeletal : No joint pain, No Myalgias, No Joint Swelling Skin : No Skin Lesions, No rash Neuro : No Weakness, No Numbness, No Paresthesias, No Loss of Consciousness, No Dizziness, No Headache Psych : No Anxiety/Panic, No Depression, No SI/HI/AH/VH, No Social Issues, Heme/Lymph: No Bruising, No Bleeding,No Lymphadenopathy Endocrine : No Polyuria, No Polydipsia, No Temperature Intolerance [facility] Past Medical History Medical History Affective bipolar disorder Asthma Asymptomatic HIV infection Chronic colitis Depression Disc degeneration, lumbar Fibromyalgia HIV (human immunodeficiency virus infection) HTN (hypertension) Hypothyroid Left lumbar radiculopathy [facility] (current) use of opiate analgesic Overweight PTSD (post-traumatic stress disorder) Renal insufficiency Spinal stenosis at L4-L5 level Urinary frequency Surgical History History of colonoscopy Family History Family History Father History of cirrhosis Mother History of high blood pressure History of diabetes mellitus History of asthma Social History Social History Housing: Apartment Alcohol intake: never Patient Tobacco Use Status: Never used Tobacco Second Hand Smoke Exposure: Yes Advance Directives: No Advance Directives Information Provided: Yes service: No Current occupational status: disabled Cognitive needs: No Hearing needs: No Vision needs: No Physical Exam ED Vital Signs: Vital Signs - 24 hr 02/11/22 21:45 02/11/22 23:54 02/12/22 02:11 Temperature 97.0 F Pulse Rate 80 74 67 Respiratory Rate 18 12 Blood Pressure 192/126 H 195/120 H 191/127 H Pulse Oximetry 97 97 Oxygen Delivery Method Room Air Room Air 02/12/22 03:53 02/12/22 04:04 02/12/22 05:16 Temperature Pulse Rate 68 76 Respiratory Rate 16 Blood Pressure 198/114 H 192/120 H 178/105 H Pulse Oximetry 97 Oxygen Delivery Method Room Air 02/12/22 05:31 02/12/22 05:44 02/12/22 06:29 Temperature Pulse Rate 73 71 74 Respiratory Rate 12 18 Blood Pressure 164/102 H 179/109 H 177/105 H Pulse Oximetry 97 97 Oxygen Delivery Method Room Air Room Air BMI result Body Mass Index 30.8 Const Other: Appearance: Alert. Oriented X3. No acute distress. Eyes: Pupils equal, round and reactive to light. ENT: Pharynx normal. Neck: Normal inspection. Neck supple. No lymph nodes noted. No crepitus CVS: Normal heart rate and rhythm. Pulses normal. Normal S1 and S2 Respiratory: No respiratory distress. Breath sounds normal. No Wheezing. No rales Abdomen: Soft and nontender. No rigidity. No distention. Skin: Skin warm and dry. Normal skin color. Normal skin turgor. Extremities: No lower extremity edema. No Lacerations. No Rash Neuro: Oriented X 3. No motor deficit. No sensory deficit. Moving all extremities. No slurred speech. CN 2 through 12 grossly intact Psych: calm, cooperative, normal affect Course Course Course Narrative: Patient's blood pressure remains high, 191/127. Patient will be given 1 dose of p.o. labetalol. Patient's troponin within normal limits, EKG shows no acute changes. I discussed with the patient that his creatinine is slowly increasing. Today 2.03. Patient has had elevated creatinine in the past but it is slowly getting worse. I discussed with the patient that we should change his medication altogether to a different blood pressure medication. Patient agrees with plan. After 1 dose of 100 mg labetalol, patient's blood pressure has not decreased, still in the 190s, heart rate in the low 60s. Patient given 1 dose of hydralazine p.o. Pt denies drug/cocaine abuse 07:00, patient has received 200 mg of labetalol, 10 mg of amlodipine, 50 mg of hydralazine, patient's blood pressure 195/110. Patient remains asymptomatic, troponin negative. Patient is now getting 1 in of nitropaste. If blood pressure is not controlled, he may need admission. Sign-out given to Dr. Chatterjee. Medical Decision Making Lab Data Result diagrams: 02/12/22 02:08 02/12/22 02:08 Labs: Lab Results 02/12/22 02/12/22 02/12/22 Range/Units 02:08 02:08 02:08 WBC 5.8 (4.8-10.8) X10*3/uL RBC 3.62 L (4.60-5.80) X10*6/uL Hgb 12.3 L (14.0-18.0) g/dl Hct 36.6 L (42.0-52.0) % MCV 101.1 H (80.0-98.0) fL MCH 34.0 H (27.0-33.0) pg MCHC 33.6 (31.0-36.0) g/dl RDW 13.2 (11.0-16.0) % Plt Count 212 (160-400) X10*3/uL MPV 9.9 (9.4-12.4) fL Immature Gran % (Auto) 0.3 (0.0-0.4) % Neut % (Auto) 59.9 (45-73) % Lymph % (Auto) 30.9 (20-40) % Fisher % (Auto) 6.5 (2-11) % Eos % (Auto) 1.9 (0-4) % Baso % (Auto) 0.5 (0-2) % Lymph # (Auto) 1.8 (1.2-4.9) X10*3/uL Fisher # (Auto) 0.4 (0.1-1.2) X10*3/uL Eos # (Auto) 0.1 (0.0-0.4) X10*3/uL Baso # (Auto) 0.0 (0.0-0.2) X10*3/uL Abs Immat Gran (auto) 0.02 (0.00-0.03) X10*3/uL Absolute Neuts (auto) 3.5 (2.0-8.3) x10*3/uL Absolute Nucleated RBC 0.000 (0.0-0.012) X10*3/uL Nucleated RBC % (auto) 0.0 (0.0-0.2) /100WBC Sodium 142 (135-145) mmol/L Potassium 3.9 (3.3-5.1) mmol/L Chloride 97 (96-108) mmol/L Carbon Dioxide 29 (22-29) mmol/L Anion Gap 20 (12-20) BUN 28 H (9-16) mg/dL Creatinine 2.03 H (0.5-1.4) mg/dL Estim Creat Clear Calc 50.8 Estimated GFR 34 Random Glucose 106 (60-115) mg/dL Calcium 9.8 (8.4-10.2) mg/dL Total Bilirubin 0.3 (0.0-1.0) mg/dL AST 33 (5-37) U/L ALT 29 (0-40) U/L Alkaline Phosphatase 64 (39-117) U/L Troponin I High Sens 5.7 (<3.5-35.0) ng/L Total Protein 8.3 H (6.5-8.0) g/dL Albumin 4.9 (3.5-5.0) g/dL Critical Care Time Critical Care Time Critical Care Time: Yes Total Critical Care Time: 45 Attestation: I have personally provided critical care time. Time includes review of lab data, radiology results, discussion with consultants, and monitoring for potential dec ompensation. Intervention performed as documented. Discharge Plan Discharge Clinical Impression: Hypertension Patient Disposition: Still a Patient Prescriptions: No Action miscellaneous medical supply Misc 1 ea miscellaneous ONCE 90 Days Qty: 2 0RF miscellaneous medical supply Misc 1 ea miscellaneous ONCE 90 Days Qty: 2 0RF (DME) commode Kit See Rx Instructions .ROUTE .MEDSUPPLY Qty: 1 0RF Rx Instructions: As directed (DME) disposable gloves [Biobrane Gloves Large] Misc See Rx Instructions .Route Qty: 1000 3RF Rx Instructions: As directed miscellaneous medical supply [facility] 1 ea miscellaneous DAILY Qty: 1 0RF Rx Instructions: SHOWER CHAIR miscellaneous medical supply [facility] 1 ea miscellaneous DAILY 99 Days Qty: 1 0RF levothyroxine 200 mcg tablet 200 mcg PO DAILY 90 Days Qty: 90 1RF buprenorphine HCl [Belbuca] 900 mcg film 900 mcg buccal Q12H 30 Days Qty: 60 0RF Rx Instructions: Chronic pain control OK to dispense along with Percocet famotidine 20 mg tablet 20 mg PO BEDTIME Qty: 90 2RF albuterol sulfate 90 mcg/actuation HFA aerosol inhaler 2 puff inhalation Q6H PRN (Reason: for wheezing) Qty: 8.5 3RF fluticasone propionate 50 mcg/actuation spray,suspension 2 spray intranasal DAILY 30 Days Qty: 48 4RF cholecalciferol (vitamin D3) [Vitamin D3] 25 mcg (1,000 unit) tablet 25 mcg PO DAILY Qty: 90 3RF fluticasone propionate [Flovent HFA] 110 mcg/actuation HFA aerosol inhaler 1 puff inhalation BID 30 Days Qty: 12 3RF promethazine 25 mg tablet 25 mg PO DAILY PRN (Reason: Nausea) 30 Days Qty: 30 3RF gabapentin 800 mg tablet 800 mg PO TID Qty: 90 3RF diphenhydramine HCl [Banophen] 25 mg capsule 25 mg PO Q12H Qty: 60 3RF ibuprofen 800 mg tablet 800 mg PO TID PRN (Reason: Pain) 30 Days Qty: 90 2RF (DME) Prevail Bladder Control Pad Pad See Rx Instructions .ROUTE .MEDSUPPLY Qty: 144 12RF Rx Instructions: As directed (DME) disposable gloves [Biobrane Gloves Large] [facility] See Rx Instructions .ROUTE .MEDSUPPLY Qty: 1000 3RF Rx Instructions: As directed zolpidem 10 mg tablet 10 mg PO BEDTIME acetaminophen [Mapap Arthritis Pain] 650 mg tablet extended release 650 mg PO Q6H Qty: 120 3RF lisinopril-hydrochlorothiazide 10-12.5 mg tablet 1 tab PO DAILY Qty: 90 2RF tizanidine 4 mg tablet 4 mg PO TID PRN (Reason: muscle spasticity) Qty: 270 3RF miscellaneous medical supply Misc 1 ea miscellaneous DAILY 99 Days Qty: 1 0RF lamotrigine 150 mg tablet 150 mg PO BID alprazolam 1 mg tablet 1 mg PO QID PRN (Reason: Anxiety) multivitamin Tablet 1 tab PO DAILY fluticasone propion-salmeterol 250-50 mcg/dose blister with device 1 inh inhalation BID duloxetine 20 mg capsule,delayed release(DR/EC) 40 mg PO BID Narcan 4 mg/actuation spray,non-aerosol 4 mg intranasal Q2M PRN (Reason: opioid overdose) Qty: 2 0RF Rx Instructions: spray 1 dose into ONE nostril; alternate nostrils w each dose until help arrives
[2022-02-12] MEDS: Labetalol HCL 100 MG TABLET PO ×2 (03:07→06:42)
[2022-02-12] MEDS: hydrALAZINE HCl 50 MG TABLET PO (04:19)
[2022-02-12] MEDS: amLODIPine Besylate 10 MG TABLET PO (05:31)
[2022-02-12] MEDS: diphenhydrAMINE HCL 25 MG TABLET 50 MG PO (06:02)
[2022-02-12 07:55] LABS: Amphetamine Screen Urine Not Detected (Not Detect); Barbiturates, Urine Not Detected (Not Detect); Benzodiazepines Screen Urine POSITIVE (Not Detect); Cannabinoid Screen Urine POSITIVE (Not Detect); Cocaine Screen Urine Not Detected (Not Detect); Fentanyl, urine Not Detected (Not Detect); Opiate Screen Urine Not Detected (Not Detect); Phencyclidine Screen Urine Not Detected (Not Detect)
== END 2022-02-12 07:48 | disposition home or self-care (01) ==
PROVIDERS: Emergency Provider Emergency Medicine; PCP Physician Assistant
DX: I10 Essential (primary) hypertension (principal); R07.89 Other chest pain; Z79.899 Other long term (current) drug therapy
CPT/HCPCS: 36415; 80053; 80307; 84484; 85025; 93005; 99284; Q0163

== ENCOUNTER 2022-08-04 10:59 | Emergency (ER) | payer OTHER, SELFPAY ==
--- NOTE | ~2022-08-04 | XR_ITS ---
EXAMINATION: XR CHEST CLINICAL INFORMATION: Shortness of breath COMPARISON: 11/23/2018 TECHNIQUE: 2 views of the chest were obtained. FINDINGS: Lungs are mildly hypoinflated. Linear, platelike opacity of atelectasis in right upper lobe. No airspace disease or pleural effusion. Cardiac silhouette has normal size and contour. Pulmonary vascular pattern is normal. The visualized bones and upper abdomen are unremarkable. XR/XR chest 2V IMPRESSION: * There is linear opacity of atelectasis in the right upper lobe. * No evidence of pneumonia.
--- NOTE | ~2022-08-04 | CT_ITS ---
EXAMINATION: CT CHEST, ABDOMEN AND PELVIS WITHOUT CONTRAST CLINICAL INFORMATION: Shortness of breath, syncope, chronic kidney disease COMPARISON: Chest radiograph 08/04/2022, CT chest 11/23/2018, CT abdomen pelvis 04/13/2017 TECHNIQUE: Multidetector volumetric imaging was performed from the thoracic inlet through the pubic symphysis without IV contrast. Sagittal and coronal reformatted images were obtained on the technologist's workstation. This CT examination was performed using dose optimization techniques as appropriate, variously including the following: *Automated exposure control *Adjustment of mA and/or kV according to patient size (this includes techniques or standardized protocols for targeted exams where dose is matched to indication/reason for exam; i.e. extremities or head) *Use of iterative reconstruction technique DLP: 1250 mGy-cm FINDINGS: CHEST: Lung: Compared with the 2019 study, some groundglass opacities that have been present at the lung bases have cleared. There is mild bronchial wall thickening and some minimal traction bronchiectasis at the left lung base. In the right upper lobe, there is new volume loss along with new thick linear areas suggestive of atelectasis/scarring with associated bronchial wall thickening and some mild traction bronchiectasis as well. No finding is present to suggest malignancy. Mediastinum: Heart size normal. The central vascular structures are unremarkable. No hilar or mediastinal lymphadenopathy. Mild coronary calcium is seen. Pericardium/Pleura: No significant effusion. No pleural mass or thickening. Chest Wall/Axilla: Unremarkable ABDOMEN/PELVIS: Peritoneal Space: No significant free air or free fluid identified. Liver, Gallbladder, Biliary Tree: The liver is enlarged measuring 21.9 cm in greatest length and demonstrates decreased attenuation consistent with hepatic steatosis. No focal hepatic lesion or biliary ductal dilatation is present. The gallbladder is unremarkable with no evidence of radiopaque gallstones, gallbladder wall thickening, or obvious pericholecystic inflammatory changes. Pancreas: Marked fatty replacement of the pancreas. Spleen: Spleen mildly enlarged at 12.5 cm. Adrenal Glands: Symmetric lobular fat density thickening of left adrenal gland is unchanged and benign. The right adrenal gland appears normal. Kidneys and Ureters: The kidneys are normal in size, shape, and attenuation. No hydronephrosis, hydroureter, or calculi seen. No perinephric stranding. Bladder: Unremarkable Gastrointestinal Tract: The small and large bowel are unremarkable. The appendix is unremarkable. Abdominal Wall: No significant hernia is appreciated. Lymph Nodes: No lymphadenopathy. Vascular: The aorta appears normal.. The IVC appears unremarkable. PELVIC VISCERA: The prostate and seminal versicles are unremarkable. OSSEUS STRUCTURES: Mild degenerative changes are noted in the spine. No bony destructive lesions are seen. CT/CT abdomen pelvis wo IV con IMPRESSION: 1. There has been some clearing of groundglass opacities in the lungs seen in 2019 with some new areas of scarring/atelectasis with volume loss in the right upper lobe. Perhaps this could be contributing to the patient's shortness of breath? 2. Enlarged fatty liver with mild splenomegaly. 3. Marked fatty replacement of the pancreas. 4. Nothing is seen that might contribute to the patient's renal failure. 5. Unchanged benign left adrenal gland thickening. Fleischner guidelines were followed.
--- NOTE | ~2022-08-04 | CT_ITS ---
EXAMINATION: NONCONTRAST HEAD CT NONCONTRAST CERVICAL SPINE CT INDICATION INFORMATION: Syncope with shortness of breath and dyspnea on exertion COMPARISON: Head and cervical spine CT 10/02/2015 TECHNIQUE: Separate noncontrast CT examinations of the head and cervical spine were performed. Coronal and sagittal images were created for each examination at the technologist workstation. This CT examination was performed using dose optimization techniques as appropriate, variously including the following: *Automated exposure control *Adjustment of mA and/or kV according to patient size (this includes techniques or standardized protocols for targeted exams where dose is matched to indication/reason for exam; i.e. extremities or head) *Use of iterative reconstruction technique DLP: 1336 mGy-cm FINDINGS: HEAD: No intra or extra-axial fluid collection, hemorrhage, or mass. No ventriculomegaly. No midline shift or herniation. Basal cisterns are patent. Bhardwaj-white matter differentiation is maintained. No territorial encephalomalacia. No significant volume loss. Patchy periventricular and deep white matter hypoattenuation is consistent with mild small vessel ischemic changes. No calvarial fracture or soft tissue abnormality. The mastoid air cells and visualized portions of the paranasal sinuses are well aerated. CERVICAL SPINE: Alignment: Reversal of the normal cervical lordosis. Mild grade 1 anterolisthesis at C4-C5. No additional subluxation. Vertebra: No acute fracture. No prevertebral soft tissue swelling. Degenerative disc disease: Advanced disc degenerative change at C5-C6 and C6-C7 with moderate disc height loss, endplate sclerosis and proliferative change. Milder disc degenerative change with mild disc height loss at C4-C5. Multilevel bilateral facet arthrosis and uncovertebral spurring. Findings have progressed since remote prior of 2015. Other findings: Visualized lung apices clear. Thyroid gland appears small/atrophic. No cervical lymphadenopathy identified. CT/CT cervical spine wo IV con IMPRESSION: 1. No intracranial hemorrhage or calvarial fracture. 2. No acute cervical spine fracture or traumatic subluxation.
--- NOTE | ~2022-08-04 | XR_ITS ---
EXAMINATION: XR WRIST, RIGHT CLINICAL INFORMATION: Pain after fall COMPARISON: None TECHNIQUE: PA, lateral, and oblique views of the right wrist. FINDINGS: The bones and soft tissues are normal. No fracture. Alignment is anatomic with normal joint spaces. No erosions or abnormal soft tissue calcifications. XR/XR wrist RT min 3V IMPRESSION: Normal right wrist.
--- NOTE | ~2022-08-04 | NM_ITS ---
EXAMINATION: NM LUNG IMAGE PERFUSION CLINICAL INFORMATION: Shortness of breath. Syncope. Elevated d-dimer. COMPARISON: CT chest 08/04/2022 TECHNIQUE: 3.6 mCi technetium 99m MAA was given intravenously. Multifocal images performed over the bones. FINDINGS: There is a linear focal perfusion defect in the right upper lobe. This correlates with the there are bands of densities, fibrosis or atelectasis at the right upper lobe seen on CT chest 08/04/2022. No additional perfusion defect. NM/NM pul perfusion IMPRESSION: Low probability of pulmonary embolism.
--- NOTE | ~2022-08-04 | XR_ITS ---
EXAMINATION: XR SCAPULA, LEFT CLINICAL INFORMATION: Pain after fall COMPARISON: None TECHNIQUE: AP and scapular Y views of the left scapula. FINDINGS: The bones and soft tissues are normal. No scapular fracture. Glenohumeral and acromioclavicular alignment is normal. The visualized ribs are normal. The left lung is normal. No pleural effusion or pneumothorax. XR/XR scapula LT IMPRESSION: Normal left scapula.
[2022-08-04 11:29] VITALS: BP 149/71; PULSE 82; RESP 16; TEMP 36.8; O2SAT 97; BMI 30.8
--- NOTE | 2022-08-04 11:30 | ED_ITS ---
HPI - General Adult General Chief complaint: General Medical <ANDERSON Patricia - Last Filed: 08/04/22 19:26> Stated complaint: fall, L body pain, trouble breathing <ANDERSON Patricia - Last Filed: 08/04/22 19:26> Time Seen by Provider: 08/04/22 13:59 <ANDERSON Patricia - Last Filed: 08/04/22 19:26> Source: patient <ANDERSON Garcia - Last Filed: 08/04/22 18:48> Mode of arrival: ambulatory <ANDERSON Garcia - Last Filed: 08/04/22 18:48> Limitations: other (Patient is a very poor historian) <ANDERSON Garcia - Last Filed: 08/04/22 18:48> History of Present Illness HPI narrative: 62 y/o M, hx of CKD, hypertension, asthma, hypothyroidism, HIV, chronic pain syndrome, bipolar disorder, fibromyalgia and PTSD who is presenting today with complaints of right wrist pain and left shoulder pain after he had a syncopal episode approximately 3-5 days ago pt is unsure exactly when this episode occurred. He reports that he was walking around his house on his phone when suddenly he lost consciousness and woke up on the floor to his friend who was on the phone screaming for him to wake up. He reports that he believes he was on the floor with LOC for approximately 3 minutes although he is not completely positive. He reports that he was feeling okay prior to the syncopal episodes. Unsure if he hit his head. He is not on any blood thinners. Reports that he has a history of syncopal episode several years ago which was attributed to changes in his blood pressure medication. He denies any new changes in his medications or any new medications. He admits to generalized fatigue/malaise, dizziness, shortness of breath, dyspnea on exertion since the fall. He denies a headache, change in vision, jaw pain, nausea/vomiting, cough, sputum production, orthopnea, palpitations, paresthesias, chest pain, nausea/vomiting/diarrhea, abdominal pain, flank pain, dysuria, hematuria, abnormal penile discharge, black or bloody stools, urinary bowel incontinence or retention, seizures, any other injuries or falls or trauma, lower extremity edema or calf tenderness or any other symptoms complaints or concerns at this time. <ANDERSON Garcia - Last Filed: 08/04/22 18:48> MD complaint: Syncopal episode <ANDERSON Garcia - Last Filed: 08/04/22 18:48> Onset (ago): day(s) (3-5 days ago pt unsure exactly when it occured) <ANDERSON Garcia - Last Filed: 08/04/22 18:48> Location: left (Left shoulder) and right (Right wrist) <ANDERSON Garcia - Last Filed: 08/04/22 18:48> Radiation: non-radiation <ANDERSON Garcai - Last Filed: 08/04/22 18:48> Quality: aching <ANDERSON Garcia - Last Filed: 08/04/22 18:48> Pain Consistency: constant <ANDERSON Garcia - Last Filed: 08/04/22 18:48> Relieving factors: none <ANDERSON Garcia Last Filed: 08/04/22 18:48> Exacerbating factors: movement <ANDERSON Garcia - Last Filed: 08/04/22 18:48> Associated symptoms: shortness of breath, syncope and other (And dizziness) <ANDERSON Garcia - Last Filed: 08/04/22 18:48> Treatments prior to arrival: none <ANDERSON Garcia - Last Filed: 08/04/22 18:48> Related Data Home medications: Home Medications Medication Instructions Recorded Confirmed alprazolam 1 mg tablet 1 mg PO QID PRN Anxiety 03/11/20 02/23/22 fluticasone 250 mcg-salmeterol 50 1 inh inhalation BID 03/11/20 02/23/22 mcg/dose blistr powdr for inhalation lamotrigine 150 mg tablet 150 mg PO BID 03/11/20 02/23/22 multivitamin 1 tab PO DAILY 03/11/20 02/23/22 duloxetine 20 mg capsule,delayed 40 mg PO BID 03/21/20 02/23/22 release zolpidem 10 mg tablet 10 mg PO BEDTIME 09/24/21 02/23/22 Previous Rx's Medication Instructions Recorded incontinence pad, liner, disp #144 ea 06/25/20 (Prevail Bladder Control Pad) miscellaneous medical supply 1 ea miscellaneous ONCE 90 days #2 07/17/20 ea miscellaneous medical supply 1 ea miscellaneous ONCE 90 days #2 08/06/20 ea commode #1 ea 08/29/20 naloxone 4 mg/actuation nasal 4 mg intranasal Q2M PRN opioid 11/12/20 spray (Narcan) overdose #2 ea miscellaneous medical supply 1 ea miscellaneous DAILY 99 days 07/30/21 #1 ea disposable gloves (Biobrane Gloves #1,000 ea 08/24/21 Large) miscellaneous medical supply 1 ea miscellaneous DAILY #1 ea 08/24/21 miscellaneous medical supply 1 ea miscellaneous DAILY 99 days 08/24/21 #1 ea levothyroxine 200 mcg tablet 200 mcg PO DAILY 90 days #90 tabs 08/27/21 famotidine 20 mg tablet 20 mg PO BEDTIME #90 tabs 10/14/21 albuterol sulfate 90 mcg/actuation 2 puff inhalation Q6H PRN for 11/19/21 aerosol inhaler wheezing #8.5 grams fluticasone propionate 50 2 spray intranasal DAILY 30 days 12/18/21 mcg/actuation nasal #48 mL spray,suspension cholecalciferol (vitamin D3) 25 25 mcg PO DAILY #90 tabs 12/22/21 mcg (1,000 unit) tablet (Vitamin D3) fluticasone propionate 110 1 puff inhalation BID 30 days #12 01/19/22 mcg/actuation HFA aerosol inhaler grams (Flovent HFA) promethazine 25 mg tablet 25 mg PO DAILY PRN Nausea 30 days 01/19/22 #30 tabs lisinopril 10 1 tab PO DAILY #90 tabs 02/23/22 mg-hydrochlorothiazide 12.5 mg tablet disposable gloves #1,000 ea 03/18/22 miscellaneous medical supply 1 ea miscellaneous .daily 99 days 03/18/22 #1 ea miscellaneous medical supply 1 ea miscellaneous DAILY 90 days 03/18/22 #500 ea miscellaneous medical supply 1 ea miscellaneous DAILY 99 days 03/18/22 #1 ea diphenhydramine HCl 25 mg capsule 25 mg PO Q12H #60 caps 05/11/22 (Banophen) acetaminophen 650 mg 650 mg PO Q6H #120 tabs 05/13/22 tablet,extended release (Mapap Arthritis Pain) ibuprofen 800 mg tablet 800 mg PO TID PRN Pain 30 days #90 06/14/22 tabs tizanidine 4 mg tablet 4 mg PO TID PRN muscle spasticity 06/23/22 #270 tabs amlodipine 10 mg tablet 10 mg PO DAILY #30 tabs 07/05/22 gabapentin 800 mg tablet 800 mg PO TID #90 tabs 07/05/22 acetaminophen 500 mg tablet 1,000 mg PO QID PRN fever or pain 08/04/22 (Tylenol Extra Strength) #14 tabs cyclobenzaprine 10 mg tablet 10 mg PO Q8H #14 tabs 08/04/22 <ANDERSON Patricia - Last Filed: 08/04/22 19:26> Allergies/adverse reactions: Allergies Allergy/AdvReac Type Severity Reaction Status Date / Time baclofen [BACLOFEN] Allergy Unknown SWOLLEN Verified 08/04/22 11:36 LEGS lithium [LITHIUM] Allergy Unknown ALMOST Verified 08/04/22 11:36 , body shuts down methadone [METHADONE] Allergy Unknown HIVES, Verified 08/04/22 11:36 swelling topiramate [From TOPAMAX] Allergy Unknown FAINT Verified 08/04/22 11:36 Amitryptiline Allergy Unknown sleepiness Uncoded 08/04/22 11:36 propranolol Allergy Unknown dizziness Uncoded 08/04/22 11:36 <ANDERSON Patricia - Last Filed: 08/04/22 19:26> Review of Systems Review of Systems: Constitutional : No Fever, No Chills, No Night Sweats, No Fatigue, No Malaise ENT/Mouth : No Ear Pain, No Nasal Congestion, No Sinus Pain, No sore throat, No Rhinorrhea Eyes: No Eye Pain, No Swelling, No Redness, No Foreign Body, No Discharge, No Vision Changes Cardiovascular : No Chest Pain, + SOB, + Dyspnea on Exertion, No Orthopnea, No Palpitations Respiratory : No Cough, No Sputum, No Wheezing, No Dyspnea Gastrointestinal : No Nausea, No Vomiting, No Diarrhea, No Constipation, No abdo ho Pain, No Hematochezia, No Melena Genitourinary : No Dysuria, No Urinary Frequency, No Urinary Incontinence, No Urgency, No Flank Pain Musculoskeletal : + left shoulder and right wrist joint pain, No Myalgias Skin : No lacerations Neuro : + syncopal episode with loss of consciousness with persistent dizziness, + general weakness, No Focal weakness, No Numbness, No Paresthesias, No Headache <ANDERSON Garcia - Last Filed: 08/04/22 18:48> Yes all other systems are reviewed and are negative <ANDERSON Garcia - Last Filed: 08/04/22 18:48> [facility] Past Medical History Attestation statement: The following information was validated with the patient. <ANDERSON Garcia - Last Filed: 08/04/22 18:48> Source: old records reviewed and nursing notes reviewed <ANDERSON Garcia - Last Filed: 08/04/22 18:48> Medical History: Medical History Affective bipolar disorder Asthma Asymptomatic HIV infection Chronic colitis Depression Disc degeneration, lumbar Fibromyalgia HIV (human immunodeficiency virus infection) HTN (hypertension) Hypothyroid Left lumbar radiculopathy longterm (current) use of opiate analgesic Overweight PTSD (post-traumatic stress disorder) Renal insufficiency Spinal stenosis at L4-L5 level Urinary frequency <ANDERSON Patricia - Last Filed: 08/04/22 19:26> Surgical History: Surgical History History of colonoscopy <ANDRESON Patricia - Last Filed: 08/04/22 19:26> Family History Family History: Family History Father History of cirrhosis Mother History of high blood pressure History of diabetes mellitus History of asthma <ANDERSON Patricia - Last Filed: 08/04/22 19:26> Social History Social History: Social History Housing: Apartment Alcohol intake: never Patient Tobacco Use Status: Never used Tobacco e-Cigarette/Vaping Use: Never Used Second Hand Smoke Exposure: Yes Advance Directives: No Advance Directives Information Provided: No service: No Current occupational status: disabled Cognitive needs: Yes (walker, cane, wheel chair) Hearing needs: No Vision needs: No <ANDERSON Patricia - Last Filed: 08/04/22 19:26> Physical Exam ED Vital Signs: Vital Signs - 24 hr 08/04/22 11:29 08/04/22 15:18 08/04/22 15:18 Temperature 98.2 F Pulse Rate 82 59 64 Respiratory Rate 16 Blood Pressure 149/71 H 149/87 H 132/88 Pulse Oximetry 97 Oxygen Delivery Method Room Air 08/04/22 15:19 08/04/22 15:20 Temperature Pulse Rate 69 59 Respiratory Rate Blood Pressure 140/89 H 149/87 H Pulse Oximetry Oxygen Delivery Method BMI result Body Mass Index 30.8 <ANDERSON Patricia - Last Filed: 08/04/22 19:26> Vital Signs - 24 hr 08/04/22 11:29 08/04/22 15:18 08/04/22 15:18 Temperature 98.2 F Pulse Rate 82 59 64 Respiratory Rate 16 Blood Pressure 149/71 H 149/87 H 132/88 Pulse Oximetry 97 Oxygen Delivery Method Room Air 08/04/22 15:19 08/04/22 15:20 Temperature Pulse Rate 69 59 Respiratory Rate Blood Pressure 140/89 H 149/87 H Pulse Oximetry Oxygen Delivery Method BMI result Body Mass Index 30.8 Vital signs reviewed and patient's blood pressure 149/71. Otherwise all other vitals are within normal limits. <ANDERSON Garcia - Last Filed: 08/04/22 18:48> Appearance: Alert. Oriented X3. No acute distress. Head: Normal external exam. Normocephalic. Atraumatic. Able to rotate head bilaterally. No Spears signs or raccoon eyes noted. Eyes: PERRLA. EOMI. No nystagmus noted. Conjunctiva and sclera normal. Eyelids normal. Corneal reflex normal. ENT: EAC normal. TM's Normal. Hearing normal. Pharynx normal. Uvula midline. tongue midline. Moist mucous membranes. No trismus noted. No drooling noted. No muffled voice noted. No nystagmus noted. Neck: Normal inspection. Neck supple. FROM. No adenopathy. Trachea midline. Thyroid Normal. No meningeal signs. No neck mass noted. CVS: Normal heart rate and rhythm. Heart sound normal. No murmurs noted. Pulses normal throughout. Respiratory: No respiratory distress. Painless inspiration. Breath sounds normal. No wheezes/rales/rhonchi noted. Chest nontender. No accessory muscle usage noted or decreased air movement noted. Abdomen: Soft and nontender. Bowel sounds normal in all 4 quadrants. No distention noted. No organomegaly noted. No visible injury noted. Back: No CVA tenderness. Full range of motion noted. Skin: Skin warm and dry. Normal skin color. Normal skin turgor. No rashes/lesions/lacerations noted. Extremities: No lower extremity edema. Extremities exhibit normal range of motion. Extremities nontender. Able to shrug shoulders bilaterally and keep up against resistance. Neuro: Oriented X 3. No motor deficit. No sensory deficit. Reflexes normal. Moving all extremities. No focal motor deficits. Cranial nerves II-XI intact bilaterally. Facial strength normal. Normal cognition. Speech normal. Gait normal. Strength 5/5 throughout. No pronator drift. No tremor noted. No fasciculations noted. No rigidity noted. Muscle tone normal throughout. No aste rixis noted. [id number]-[id number] test normal. Heel to machuca test normal. Tandem gait normal. Does not sway with eyes open. Romberg test negative. Rapid alternating movement upper extremity normal. Rapid alternating movement lower extremity normal. Hand drop from overhead Misses face. NIHSS score 0. <ANDERSON Garcia - Last Filed: 08/04/22 18:48> Course Course Course Narrative: RME: 62 y/o M, hx of CKD, hypertension, asthma, hypothyroidism, presenting today for evaluation of left shoulder and right wrist pain and syncopal episode. 5 days ago, he was walking around his home speaking on his phone, and lost consciousness and woke up on his floor. He reports he was feeling ok prior to syncopal episode. Unsure if he hit his head. He states hx of syncopal episode several years ago and which was attributed to changes in his blood pressure medication. +SOB. +Left shoulder and left upper back pain after the fall. No known cardiac problems. VSS in triage, Lungs clear. Basic labs, EKG, and xrays ordered. Stable to go out to the waiting room until a room is available. <ANDERSON Patricia - Last Filed: 08/04/22 19:26> Reevaluation(s) Reevaluation #1: 62 y/o M, hx of CKD, hypertension, asthma, hypothyroidism, HIV, chronic pain syndrome, bipolar disorder, fibromyalgia and PTSD who is presenting today with complaints of right wrist pain and left shoulder pain after he had a syncopal episode approximately 3-5 days ago pt is unsure exactly when this episode occurred. He reports that he was walking around his house on his phone when suddenly he lost consciousness and woke up on the floor to his friend who was on the phone screaming for him to wake up. He reports that he believes he was on the floor with LOC for approximately 3 minutes although he is not completely positive. He reports that he was feeling okay prior to the syncopal episodes. Unsure if he hit his head. He is not on any blood thinners. Reports that he has a history of syncopal episode several years ago which was attributed to changes in his blood pressure medication. He denies any new changes in his medications or any new medications. Labs reviewed obtained in triage - mild baseline anemia which is similar compared to prior. - Carbon dioxide 31. - Creatinine 2.08 which is similar compared to prior. - D-dimer 2016. Otherwise all other labs are within normal limits. Imaging obtained in triage Chest x-ray revealed linear opacity of atelectasis and right upper lobe I had reviewed these myself no evidence of pneumonia discussed this with patient. Scapular left x-ray negative for any acute processes reviewed by myself. And discussed with patient. Right wrist x-ray negative for any acute processes discussed this with the patient reviewed imaging myself Orthostatic vitals were within normal limits/negative. Plan: Therefore due to elevated D-dimer and patient having a fall with head injury and reporting dizziness and shortness of breath will obtain a CT scan of brain/cervical spine/chest and abdomen pelvis without IV contrast due to patient's CKD. Will also order a V/Q scan and re-evaluate. <ANDERSON Garcia - Last Filed: 08/04/22 18:48> Time: 14:30 <ANDERSON Garcia - Last Filed: 08/04/22 18:48> Reevaluation #2: Patient just went to V/Q scan at this time. CT scan of brain/cervical spine revealed chronic changes no acute processes are noted. I discussed this with patient reviewed imaging myself. CT chest without contrast revealed some clearing of ground-glass opacities in the lung seen in 2019 with some new areas of scarring/atelectasis with volume l oss in the right upper lobe otherwise no other acute processes were noted. I reviewed these myself and discussed with patient CT scan abdomen pelvis without IV contrast revealed fatty liver with mild to no no megaly fatty replacement of the pancreas otherwise no other processes were noted. Plan: therefore at this time pending V/Q scan will re-evaluate. <ANDERSON Garcia - Last Filed: 08/04/22 18:48> Time: 17:30 <ANDERSON Garcia - Last Filed: 08/04/22 18:48> Reevaluation #3: Sign-out to [facility] pending V/Q scan. If negative patient will be discharged with follow-up with PCP. He understands agrees with this plan. <ANDERSON Garcia - Last Filed: 08/04/22 18:48> Time: 18:45 <ANDERSON Garcia - Last Filed: 08/04/22 18:48> Additional Reevaluation(s): 1924 - V/Q with low probability of PE. Patient is stable and is comfortable with d/c home. Will f/u with PCP. Will return with any worsening symptoms. <ANDERSON Patricia - Last Filed: 08/04/22 19:26> Medical Decision Making Lab Data MDM Lab Attestation statement: I reviewed the patient's lab results. <ANDERSON Garcia - Last Filed: 08/04/22 18:48> Result Diagrams: 08/04/22 12:18 08/04/22 12:18 <ANDERSON Patricia - Last Filed: 08/04/22 19:26> Labs: Lab Results 08/04/22 08/04/22 08/04/22 Range/Units 12:18 12:18 12:18 WBC 6.6 (4.8-10.8) X10*3/uL RBC 3.45 L (4.60-5.80) X10*6/uL Hgb 12.1 L (14.0-18.0) g/dl Hct 36.0 L (42.0-52.0) % MCV 104.3 H (80.0-98.0) fL MCH 35.1 H (27.0-33.0) pg MCHC 33.6 (31.0-36.0) g/dl RDW 13.3 (11.0-16.0) % Plt Count 234 (160-400) X10*3/uL MPV 10.0 (9.4-12.4) fL Immature Gran % (Auto) 0.3 (0.0-0.4) % Neut % (Auto) 59.6 (45-73) % Lymph % (Auto) 30.8 (20-40) % Stanley % (Auto) 6.3 (2-11) % Eos % (Auto) 2.1 (0-4) % Baso % (Auto) 0.9 (0-2) % Lymph # (Auto) 2.0 (1.2-4.9) X10*3/uL Stanley # (Auto) 0.4 (0.1-1.2) X10*3/uL Eos # (Auto) 0.1 (0.0-0.4) X10*3/uL Baso # (Auto) 0.1 (0.0-0.2) X10*3/uL Abs Immat Gran (auto) 0.02 (0.00-0.03) X10*3/uL Absolute Neuts (auto) 3.9 (2.0-8.3) x10*3/uL Absolute Nucleated RBC 0.000 (0.0-0.012) X10*3/uL Nucleated RBC % (auto) 0.0 (0.0-0.2) /100WBC PT (10.0-13.1) SEC INR (0.9-1.1) D-Dimer High Sensitivty NG/ML Sodium 142 (135-145) mmol/L Potassium 3.5 (3.3-5.1) mmol/L Chloride 100 (96-108) mmol/L Carbon Dioxide 31 H (22-29) mmol/L Anion Gap 15 (12-20) BUN 16 (9-16) mg/dL Creatinine 2.08 H (0.5-1.4) mg/dL Estim Creat Clear Calc 48.9 Estimated GFR 33 Random Glucose 103 (60-115) mg/dL Calcium 9.7 (8.4-10.2) mg/dL Magnesium 2.3 (1.6-2.6) mg/dL Total Bilirubin 0.5 (0.0-1.0) mg/dL Direct Bilirubin 0.2 (0.0-0.5) mg/dL AST 28 (5-37) U/L ALT 27 (0-40) U/L Alkaline Phosphatase 69 (39-117) U/L Total Creatine Kinase 169 (38-174) U/L Troponin I High Sens (<3.5-35.0) ng/L B-Natriuretic Peptide < 10 (<100) pg/mL Total Protein 7.9 (6.5-8.0) g/dL Albumin 4.7 (3.5-5.0) g/dL 08/04/22 08/04/22 Range/Units 14:37 14:37 WBC (4.8-10.8) X10*3/uL RBC (4.60-5.80) X10*6/uL Hgb (14.0-18.0) g/dl Hct (42.0-52.0) % MCV (80.0-98.0) fL MCH (27.0-33.0) pg MCHC (31.0-36.0) g/dl RDW (11.0-16.0) % Plt Count (160-400) X10*3/uL MPV (9.4-12.4) fL Immature Gran % (Auto) (0.0-0.4) % Neut % (Auto) (45-73) % Lymph % (Auto) (20-40) % Stanley % (Auto) (2-11) % Eos % (Auto) (0-4) % Baso % (Auto) (0-2) % Lymph # (Auto) (1.2-4.9) X10*3/uL Stanley # (Auto) (0.1-1.2) X10*3/uL Eos # (Auto) (0.0-0.4) X10*3/uL Baso # (Auto) (0.0-0.2) X10*3/uL Abs Immat Gran (auto) (0.00-0.03) X10*3/uL Absolute Neuts (auto) (2.0-8.3) x10*3/uL Absolute Nucleated RBC (0.0-0.012) X10*3/uL Nucleated RBC % (auto) (0.0-0.2) /100WBC PT 10.9 (10.0-13.1) SEC INR 1.0 (0.9-1.1) D-Dimer High Sensitivty 2016 NG/ML Sodium (135-145) mmol/L Potassium (3.3-5.1) mmol/L Chloride (96-108) mmol/L Carbon Dioxide (22-29) mmol/L Anion Gap (12-20) BUN (9-16) mg/dL Creatinine (0.5-1.4) mg/dL Estim Creat Clear Calc Estimated GFR Random Glucose (60-115) mg/dL Calcium (8.4-10.2) mg/dL Magnesium (1.6-2.6) mg/dL Total Bilirubin (0.0-1.0) mg/dL Direct Bilirubin (0.0-0.5) mg/dL AST (5-37) U/L ALT (0-40) U/L Alkaline Phosphatase (39-117) U/L Total Creatine Kinase (38-174) U/L Troponin I High Sens < 3.5 (<3.5-35.0) ng/L B-Natriuretic Peptide (<100) pg/mL Total Protein (6.5-8.0) g/dL Albumin (3.5-5.0) g/dL <ANDERSON Patricia - Last Filed: 08/04/22 19:26> Lab Results 08/04/22 08/04/22 08/04/22 Range/Units 12:18 12:18 12:18 WBC 6.6 (4.8-10.8) X10*3/uL RBC 3.45 L (4.60-5.80) X10*6/uL Hgb 12.1 L (14.0-18.0) g/dl Hct 36.0 L (42.0-52.0) % MCV 104.3 H (80.0-98.0) fL MCH 35.1 H (27.0-33.0) pg MCHC 33.6 (31.0-36.0) g/dl RDW 13.3 (11.0-16.0) % Plt Count 234 (160-400) X10*3/uL MPV 10.0 (9.4-12.4) fL Immature Gran % (Auto) 0.3 (0.0-0.4) % Neut % (Auto) 59.6 (45-73) % Lymph % (Auto) 30.8 (20-40) % Stanley % (Auto) 6.3 (2-11) % Eos % (Auto) 2.1 (0-4) % Baso % (Auto) 0.9 (0-2) % Lymph # (Auto) 2.0 (1.2-4.9) X10*3/uL Stanley # (Auto) 0.4 (0.1-1.2) X10*3/uL Eos # (Auto) 0.1 (0.0-0.4) X10*3/uL Baso # (Auto) 0.1 (0.0-0.2) X10*3/uL Abs Immat Gran (auto) 0.02 (0.00-0.03) X10*3/uL Absolute Neuts (auto) 3.9 (2.0-8.3) x10*3/uL Absolute Nucleated RBC 0.000 (0.0-0.012) X10*3/uL Nucleated RBC % (auto) 0.0 (0.0-0.2) /100WBC PT (10.0-13.1) SEC INR (0.9-1.1) D-Dimer High Sensitivty NG/ML Sodium 142 (135-145) mmol/L Potassium 3.5 (3.3-5.1) mmol/L Chloride 100 (96-108) mmol/L Carbon Dioxide 31 H (22-29) mmol/L Anion Gap 15 (12-20) BUN 16 (9-16) mg/dL Creatinine 2.08 H (0.5-1.4) mg/dL Estim Creat Clear Calc 48.9 Estimated GFR 33 Random Glucose 103 (60-115) mg/dL Calcium 9.7 (8.4-10.2) mg/dL Magnesium 2.3 (1.6-2.6) mg/dL Total Bilirubin 0.5 (0.0-1.0) mg/dL Direct Bilirubin 0.2 (0.0-0.5) mg/dL AST 28 (5-37) U/L ALT 27 (0-40) U/L Alkaline Phosphatase 69 (39-117) U/L Total Creatine Kinase 169 (38-174) U/L Troponin I High Sens (<3.5-35.0) ng/L B-Natriuretic Peptide < 10 (<100) pg/mL Total Protein 7.9 (6.5-8.0) g/dL Albumin 4.7 (3.5-5.0) g/dL 08/04/22 08/04/22 Range/Units 14:37 14:37 WBC (4.8-10.8) X10*3/uL RBC (4.60-5.80) X10*6/uL Hgb (14.0-18.0) g/dl Hct (42.0-52.0) % MCV (80.0-98.0) fL MCH (27.0-33.0) pg MCHC (31.0-36.0) g/dl RDW (11.0-16.0) % Plt Count (160-400) X10*3/uL MPV (9.4-12.4) fL Immature Gran % (Auto) (0.0-0.4) % Neut % (Auto) (45-73) % Lymph % (Auto) (20-40) % Stanley % (Auto) (2-11) % Eos % (Auto) (0-4) % Baso % (Auto) (0-2) % Lymph # (Auto) (1.2-4.9) X10*3/uL Stanley # (Auto) (0.1-1.2) X10*3/uL Eos # (Auto) (0.0-0.4) X10*3/uL Baso # (Auto) (0.0-0.2) X10*3/uL Abs Immat Gran (auto) (0.00-0.03) X10*3/uL Absolute Neuts (auto) (2.0-8.3) x10*3/uL Absolute Nucleated RBC (0.0-0.012) X10*3/uL Nucleated RBC % (auto) (0.0-0.2) /100WBC PT 10.9 (10.0-13.1) SEC INR 1.0 (0.9-1.1) D-Dimer High Sensitivty 2016 NG/ML Sodium (135-145) mmol/L Potassium (3.3-5.1) mmol/L Chloride (96-108) mmol/L Carbon Dioxide (22-29) mmol/L Anion Gap (12-20) BUN (9-16) mg/dL Creatinine (0.5-1.4) mg/dL Estim Creat Clear Calc Estimated GFR Random Glucose (60-115) mg/dL Calcium (8.4-10.2) mg/dL Magnesium (1.6-2.6) mg/dL Total Bilirubin (0.0-1.0) mg/dL Direct Bilirubin (0.0-0.5) mg/dL AST (5-37) U/L ALT (0-40) U/L Alkaline Phosphatase (39-117) U/L Total Creatine Kinase (38-174) U/L Troponin I High Sens < 3.5 (<3.5-35.0) ng/L B-Natriuretic Peptide (<100) pg/mL Total Protein (6.5-8.0) g/dL Albumin (3.5-5.0) g/dL <ANDERSON Garcia - Last Filed: 08/04/22 18:48> Independent Interpretation I performed an independent interpretation of an: EKG, Plain X-Ray and CT Scan <ANDERSON Garcia - Last Filed: 08/04/22 18:48> Radiology Impression Discussion of test interpretation with radiology: I have reviewed the radiologist's reading. <ANDERSON Garcia - Last Filed: 08/04/22 18:48> Radiologist Impression: FINDINGS: HEAD: No intra or extra-axial fluid collection, hemorrhage, or mass. No ventriculomegaly. No midline shift or herniation. Basal cisterns are patent. Bhardwaj-white matter differentiation is maintained. No territorial encephalomalacia. ?No significant volume loss. Patchy periventricular and deep white matter hypoattenuation is consistent with mild small vessel ischemic changes. No calvarial fracture or soft tissue abnormality.? The mastoid air cells and visualized portions of the paranasal sinuses are well aerated. CERVICAL SPINE: Alignment: Reversal of the normal cervical lordosis. Mild grade 1 anterolisthesis at C4-C5. No additional subluxation. Vertebra: No acute fracture. No prevertebral soft tissue swelling. Degenerative disc disease: Advanced disc degenerative change at C5-C6 and C6-C7 with moderate disc height loss, endplate sclerosis and proliferative change. Milder disc degenerative change with mild disc height loss at C4-C5. Multilevel bilateral facet arthrosis and uncovertebral spurring. Findings have progressed since remote prior of 2016. Other findings: Visualized lung apices clear. Thyroid gland appears small/atrophic. No cervical lymphadenopathy identified. CT/CT head/brain wo IV con IMPRESSION: 1.? No intracranial hemorrhage or calvarial fracture. 2.? No acute cervical spine fracture or traumatic subluxation. FINDINGS: CHEST: Lung: Compared with the 2019 study, some groundglass opacities that have been present at the lung bases have cleared. There is mild bronchial wall thickening and some minimal traction bronchiectasis at the left lung base. In the right upper lobe, there is new volume loss along with new thick linear areas suggestive of atelectasis/scarring with associated bronchial wall thickening and some mild traction bronchiectasis as well. No finding is present to suggest malignancy. Mediastinum: Heart size normal. The central vascular structures are unremarkable. No hilar or mediastinal lymphadenopathy. Mild coronary calcium is seen. Pericardium/Pleura: No significant effusion. No pleural mass or thickening. Chest Wall/Axilla: Unremarkable ABDOMEN/PELVIS: Peritoneal Space: No significant free air or free fluid identified. Liver, Gallbladder, Biliary Tree: The liver is enlarged measuring 21.9 cm in greatest length and demonstrates decreased attenuation consistent with hepatic steatosis.? No focal hepatic lesion or biliary ductal dilatation is present. The gallbladder is unremarkable with no evidence of radiopaque gallstones, gallbladder wall thickening, or obvious pericholecystic inflammatory changes. Pancreas: Marked fatty replacement of the pancreas. Spleen: Spleen mildly enlarged at 12.5 cm. Adrenal Glands: Symmetric lobular fat density thickening of left adrenal gland is unchanged and benign. The right adrenal gland appears normal. Kidneys and Ureters: The kidneys are normal in size, shape, and attenuation. No hydronephrosis, hydroureter, or calculi seen. No perinephric stranding. Bladder: Unremarkable Gastrointestinal Tract: The small and large bowel are unremarkable. The appendix is unremarkable. Abdominal Wall: No significant hernia is appreciated. Lymph Nodes: No lymphadenopathy. Vascular: The aorta appears normal.. The IVC appears unremarkable. PELVIC VISCERA: The prostate and seminal versicles are unremarkable. OSSEUS STRUCTURES: Mild degenerative changes are noted in the spine. No bony destructive lesions are seen. CT/CT abdomen pelvis wo IV con IMPRESSION: 1.? There has been some clearing of groundglass opacities in the lungs seen in 2019 with some new areas of scarring/atelectasis with volume loss in the right upper lobe. Perhaps this could be contributing to the patient's shortness of breath? 2.? Enlarged fatty liver with mild splenomegaly. 3.? Marked fatty replacement of the pancreas. 4.? Nothing is seen that might contribute to the patient's renal failure. 5.? Unchanged benign left adrenal gland thickening. ? Fleischner guidelines were followed. EXAMINATION: XR WRIST, RIGHT CLINICAL INFORMATION: Pain after fall? COMPARISON: None? TECHNIQUE: PA, lateral, and oblique views of the right wrist. FINDINGS: The bones and soft tissues are normal. No fracture. Alignment is anatomic with normal joint spaces. No erosions or abnormal soft tissue calcifications.? XR/XR wrist RT min 3V IMPRESSION: Normal right wrist EXAMINATION: XR WRIST, RIGHT CLINICAL INFORMATION: Pain after fall? COMPARISON: None? TECHNIQUE: PA, lateral, and oblique views of the right wrist. FINDINGS: The bones and soft tissues are normal. No fracture. Alignment is anatomic with normal joint spaces. No erosions or abnormal soft tissue calcifications.? XR/XR wrist RT min 3V IMPRESSION: Normal right wrist.. FINDINGS: Lungs are mildly hypoinflated. Linear, platelike opacity of atelectasis in right upper lobe. No airspace disease or pleural effusion. Cardiac silhouette has normal size and contour. Pulmonary vascular pattern is normal. The visualized bones and upper abdomen are unremarkable. XR/XR chest 2V IMPRESSION: *? There is linear opacity of atelectasis in the right upper lobe. *? No evidence of pneumonia. <ANDERSON Garcia - Last Filed: 08/04/22 18:48> External Record Review External record reviewed: Inpatient record, Office record, Outpatient record, Prior outpatient labs, Prior outpatient radiology, Primary care record and Outside ED record <ANDERSON Garcia - Last Filed: 08/04/22 18:48> Chronic Conditions Patient?s care impacted by: Hypertension <ANDERSON Garcia - Last Filed: 08/04/22 18:48> Critical Care Time Critical Care Time Critical Care Time: Yes <ANDERSON Garcia - Last Filed: 08/04/22 18:48> Total Critical Care Time: 60 <ANDERSON Garcia - Last Filed: 08/04/22 18:48> Attestation: I personally attest to this time spent taking care of the patient <ANDERSON Garcia - Last Filed: 08/04/22 18:48> Discharge Plan Discharge Clinical Impression: Syncope, Sprain of left shoulder, Right wrist sprain <ANDERSON Patricia - Last Filed: 08/04/22 19:26> Patient Disposition: Home, Self-Care <ANDERSON Patricia - Last Filed: 08/04/22 19:26> Instructions: Syncope (ED), Shoulder Sprain (ED), Wrist Sprain (ED) <ANDERSON Patricia Last Filed: 08/04/22 19:26> Additional Instructions: Your work up today was unremarkable. Follow up with your primary care provider. Take all prescribed medications as prescribed. If you develop new or worsening symptoms call 911 or come back to the ER for further evaluation. <ANDERSON Patricia - Last Filed: 08/04/22 19:26> Prescriptions: New acetaminophen [Tylenol Extra Strength] 500 mg tablet 1,000 mg PO QID PRN (Reason: fever or pain) Qty: 14 0RF cyclobenzaprine 10 mg tablet 10 mg PO Q8H Qty: 14 0RF No Action miscellaneous medical supply Misc 1 ea miscellaneous ONCE 90 Days Qty: 2 0RF miscellaneous medical supply Misc 1 ea miscellaneous ONCE 90 Days Qty: 2 0RF (DME) commode Kit See Rx Instructions .ROUTE .MEDSUPPLY Qty: 1 0RF Rx Instructions: As directed (DME) disposable gloves [Biobrane Gloves Large] Misc See Rx Instructions .Route Qty: 1000 3RF Rx Instructions: As directed miscellaneous medical supply Misc 1 ea miscellaneous DAILY Qty: 1 0RF Rx Instructions: SHOWER CHAIR miscellaneous medical supply Misc 1 ea miscellaneous DAILY 99 Days Qty: 1 0RF levothyroxine 200 mcg tablet 200 mcg PO DAILY 90 Days Qty: 90 1RF famotidine 20 mg tablet 20 mg PO BEDTIME Qty: 90 2RF albuterol sulfate 90 mcg/actuation HFA aerosol inhaler 2 puff inhalation Q6H PRN (Reason: for wheezing) Qty: 8.5 3RF fluticasone propionate 50 mcg/actuation spray,suspension 2 spray intranasal DAILY 30 Days Qty: 48 4RF cholecalciferol (vitamin D3) [Vitamin D3] 25 mcg (1,000 unit) tablet 25 mcg PO DAILY Qty: 90 3RF fluticasone propionate [Flovent HFA] 110 mcg/actuation HFA aerosol inhaler 1 puff inhalation BID 30 Days Qty: 12 3RF promethazine 25 mg tablet 25 mg PO DAILY PRN (Reason: Nausea) 30 Days Qty: 30 3RF (DME) disposable gloves Misc See Rx Instructions .Route Qty: 1000 3RF Rx Instructions: As directed miscellaneous medical supply Misc 1 ea miscellaneous .daily 99 Days Qty: 1 0RF miscellaneous medical supply Misc 1 ea miscellaneous DAILY 99 Days Qty: 1 0RF miscellaneous medical [facility]a miscellaneous DAILY 90 Days Qty: 500 3RF diphenhydramine HCl [Banophen] 25 mg capsule 25 mg PO Q12H Qty: 60 3RF acetaminophen [Mapap Arthritis Pain] 650 mg tablet extended release 650 mg PO Q6H Qty: 120 3RF ibuprofen 800 mg tablet 800 mg PO TID PRN (Reason: Pain) 30 Days Qty: 90 2RF tizanidine 4 mg tablet 4 mg PO TID PRN (Reason: muscle spasticity) Qty: 270 3RF gabapentin 800 mg tablet 800 mg PO TID Qty: 90 0RF amlodipine 10 mg tablet 10 mg PO DAILY Qty: 30 3RF (DME) Prevail Bladder Control Pad Pad See Rx Instructions .ROUTE .MEDSUPPLY Qty: 144 12RF Rx Instructions: As directed zolpidem 10 mg tablet 10 mg PO BEDTIME miscellaneous medical supply Misc 1 ea miscellaneous DAILY 99 Days Qty: 1 0RF lisinopril-hydrochlorothiazide 10-12.5 mg tablet 1 tab PO DAILY Qty: 90 2RF lamotrigine 150 mg tablet 150 mg PO BID alprazolam 1 mg tablet 1 mg PO QID PRN (Reason: Anxiety) multivitamin Tablet 1 tab PO DAILY fluticasone propion-salmeterol 250-50 mcg/dose blister with device 1 inh inhalation BID duloxetine 20 mg capsule,delayed release(DR/EC) 40 mg PO BID Narcan 4 mg/actuation spray,non-aerosol 4 mg intranasal Q2M PRN (Reason: opioid overdose) Qty: 2 0RF Rx Instructions: spray 1 dose into ONE nostril; alternate nostrils w each dose until help arrives <ANDERSON Patricia - Last Filed: 08/04/22 19:26> Referrals: Joni Ferreira PA-C [Primary Care Provider] - 1 day <ANDERSON Patricia - Last Filed: 08/04/22 19:26>
--- NOTE | 2022-08-04 11:35 | ECG_ITS ---
Test Reason : SYNCOPE Blood Pressure : / mmHG Vent. Rate : 065 BPM Atrial Rate : 065 BPM P-R Int : 186 ms QRS Dur : 104 ms QT Int : 392 ms P-R-T Axes : 030 -07 157 degrees QTc Int : 407 ms Normal sinus rhythm Nonspecific T wave abnormality Abnormal ECG When compared with ECG of 12-FEB-2022 02:01, No significant change was found Referred By: Rossi Ly Electronically Signed By:JAIME GALDAMEZ
[2022-08-04 12:22] LABS: MANUAL DIFF FLAG NO
[2022-08-04 12:24] LABS: Basophils Absolute Auto 0.1 X10*3/uL (0.0-0.2); Basophils Percent Auto 0.9 % (0-2); Eosinophils Absolute Auto 0.1 X10*3/uL (0.0-0.4); Eosinophils Percent Auto 2.1 % (0-4); Hemoglobin 12.1 g/dl (14.0-18.0); Imm Gran Abs Auto 0.02 X10*3/uL (0.00-0.03); Imm Gran Pct Auto 0.3 % (0.0-0.4); Lymphocytes Percent Auto 30.8 % (20-40); Mean Corpuscular HGB Conc 33.6 g/dl (31.0-36.0); Mean Corpuscular Hemoglobin 35.1 pg (27.0-33.0); Mean Corpuscular Volume 104.3 fL (80.0-98.0); Monocytes Absolute Auto 0.4 X10*3/uL (0.1-1.2); Monocytes Percent Auto 6.3 % (2-11); Neutrophils Absolute Auto 3.9 x10*3/uL (2.0-8.3); Neutrophils Percent Auto 59.6 % (45-73); Platelet Count 234 X10*3/uL (160-400); Red Blood Count 3.45 X10*6/uL (4.60-5.80); Red Cell Distribution Width 13.3 % (11.0-16.0); White Blood Count 6.6 X10*3/uL (4.8-10.8)
[2022-08-04 12:43] LABS: Alanine Aminotransferase 27 U/L (0-40); Albumin Level 4.7 g/dL (3.5-5.0); Alkaline Phosphatase 69 U/L (39-117); Anion Gap 15 (12-20); Aspartate Amino Transferase 28 U/L (5-37); Bilirubin Direct 0.2 mg/dL (0.0-0.5); Bilirubin Total 0.5 mg/dL (0.0-1.0); Blood Urea Nitrogen 16 mg/dL (9-16); Calcium 9.7 mg/dL (8.4-10.2); Carbon Dioxide 31 mmol/L (22-29); Chloride 100 mmol/L (96-108); Creatinine Clr Calc Pharmacy 48.9; Estimated Glomerular Filt Rate 33; Glucose Random 103 mg/dL (60-115); Magnesium 2.3 mg/dL (1.6-2.6); Potassium 3.5 mmol/L (3.3-5.1); Sodium 142 mmol/L (135-145); Total Protein 7.9 g/dL (6.5-8.0)
[2022-08-04 12:44] LABS: B Type Natriuretic Peptide < 10 pg/mL (<100)
[2022-08-04 14:59] LABS: Prothrombin Time 10.9 SEC (10.0-13.1)
[2022-08-04 15:01] LABS: D Dimer High Sensitivity 2016 NG/ML
[2022-08-04 15:13] LABS: Troponin-I High Sensitivity < 3.5 ng/L (<3.5-35.0)
[2022-08-04 15:18] VITALS: BP 132/88; BP 149/87; PULSE 59; PULSE 64
[2022-08-04 15:19] VITALS: BP 140/89; PULSE 69
[2022-08-04 15:20] VITALS: BP 149/87; PULSE 59
== END 2022-08-04 19:29 | disposition home or self-care (01) ==
PROVIDERS: Physician Assistant; Physician Assistant Medical; Emergency Provider Emergency Medicine; PCP Physician Assistant
DX: S43.402A Unspecified sprain of left shoulder joint, initial encounter (principal); S63.501A Unspecified sprain of right wrist, initial encounter; R55 Syncope and collapse; R06.02 Shortness of breath; M54.2 Cervicalgia; M54.6 Pain in thoracic spine; R10.9 Unspecified abdominal pain; M25.531 Pain in right wrist; W01.0XXA Fall on same level from slipping, tripping and stumbling without subsequent striking against object, initial encounter; Y93.9 Activity, unspecified; Y92.9 Unspecified place or not applicable; Y99.9 Unspecified external cause status; Z79.899 Other long term (current) drug therapy
CPT/HCPCS: 36415; 70450; 71046; 71250; 72125; 73010; 73110; 74176; 78580; 80048; 80076; 82550; 83735; 83880; 84484; 85025; 85379; 85610; 93005; 99283; 99285; A9540

== ENCOUNTER 2022-09-22 10:00 | Outpatient (RCR) | payer OTHER, SELFPAY ==
--- NOTE | 2022-08-31 13:06 | MHC.OT.EP ---
[address] [phone] Occupational Therapy Plan of Care Patient Name: Anthony Segura Date of Evaluation: 08/31/22 Diagnosis: Right wrist sprain Pain Location: 2-5 right wrist . Sharp Pain Score: 5 Pain Scale Used: Numeric (0 - 10) Aggravating Factors: Making a fist, gripping Alleviating Factors: Assessment: Pt is a 62 yo male 4 wks s/p non dominant right wrist sprain and a left shoulder injury due to a fall Pt presents with complaint of right wrist and arm pain with making a fist and reports avoiding hand use . 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 Pt will tolerate concentric wrist ther ex Right washing machine assembler to 70 lb Quick DASH score to < 30 pts Custodial Goals: Same as above Treatment Plan: Therapeutic Exercise Therapeutic Activity Home Exercise Program Patient Education ADL Training Electronically Signed By: Jamee Thakkar OT CHT CLT Please Sign and return to therapist. Thank you once again for your referral.
--- NOTE | 2022-09-22 11:28 | MHC.OT.OP ---
[address] [phone] F: [phone] Occupational Therapy Progress Note Patient Name: Anthony Segura Diagnosis: Right wrist sprain Date of Surgery: Date of Evaluation: 08/31/22 Treatments to Date: 4 Cancellations to Date: No Shows to Date: Subjective: It feels like its getting worse than better Reports wearing a night wrist support . trying to use it more Pain Score: 4 Pain Location: R volar distal forearm. L 6 Objective Measures: Center Hole Reamer R 55 lb L 80 lb Status: Not Progressing Assessment: Pt reports no improvement . Center Hole Reamer strength unchanged. No other objective measures of impairment. Pain 4/10 Poor compliance with HEP due to pt difficulty following exercise pictures with instructions. Began video recording HEP today with pt phone until low battery . Pt report some improvement after treatment. Pt reports he is inconsistent with wearing wrist splint. Pain greater at night. A lapse in treatment due to therapist absence Short Term Goals: Pt will demonstrate indep with HEP for right wrist and hand. Pt will tolerate concentric wrist ther ex Right cutting machine operator to 70 lb Quick DASH score to < 30 pts Senior Net Developer Goals: Same as above Frequency and Duration: The patient will be seen 2x wk x 2 wks Treatment Plan: Therapeutic Exercise Therapeutic Activity Home Exercise Program Splinting Patient Education Ultrasound Pt anxious to begin PT for left shoulder pain when finished with OT Electronically Signed By: Jamee Thakkar OT CHT CLT Reviewed/agree with student documentation: N/A Therapist:
--- NOTE | 2022-09-22 11:28 | MHC.OT.OP ---
[address] [phone] F: [phone] Occupational Therapy Progress Note Patient Name: Anthony Segura Diagnosis: Right wrist sprain Date of Surgery: Date of Evaluation: 08/31/22 Treatments to Date: 4 Cancellations to Date: No Shows to Date: Subjective: It feels like its getting worse than better Reports wearing a night wrist support . trying to use it more Pain Score: 4 Pain Location: R volar distal forearm. L 6 Objective Measures: Advertising Account Executive R 55 lb L 80 lb Status: Not Progressing Assessment: Pt reports no improvement . Advertising Account Executive strength unchanged. No other objective measures of impairment. Pain 4/10 Poor compliance with HEP due to pt difficulty following exercise pictures with instructions. Began video recording HEP today with pt phone until low battery . Pt report some improvement after treatment. Pt reports he is inconsistent with wearing wrist splint. Pain greater at night. A lapse in treatment due to therapist absence Short Term Goals: Pt will demonstrate indep with HEP for right wrist and hand. Pt will tolerate concentric wrist ther ex Right sales team recruiter to 70 lb Quick DASH score to < 30 pts Gis Manager Goals: Same as above Frequency and Duration: The patient will be seen 2x wk x 2 wks Treatment Plan: Therapeutic Exercise Therapeutic Activity Home Exercise Program Splinting Patient Education Ultrasound Pt anxious to begin PT for left shoulder pain when finished with OT Electronically Signed By: Jamee Thakkar OT CHT CLT Reviewed/agree with student documentation: N/A Therapist:
== END 2022-10-20 10:18 | disposition home or self-care (01) ==
LOC: HO.OT 10:00
PROVIDERS: PCP Physician Assistant; Visit Provider Nurse Practitioner Family
DX: S63.501A Unspecified sprain of right wrist, initial encounter (principal)
CPT/HCPCS: 97035; 97110; 97166

== ENCOUNTER 2022-10-13 10:17 | Outpatient (REF) | payer OTHER, SELFPAY ==
[2022-10-13 10:59] LABS: Mean Corpuscular HGB Conc 33.3 g/dl (31.0-36.0); Mean Corpuscular Hemoglobin 34.8 pg (27.0-33.0); Mean Corpuscular Volume 104.4 fL (80.0-98.0); Mean Platelet Volume 10.1 fL (9.4-12.4); Platelet Count 206 X10*3/uL (160-400); Red Blood Count 3.16 X10*6/uL (4.60-5.80); Red Cell Distribution Width 12.9 % (11.0-16.0); White Blood Count 6.2 X10*3/uL (4.8-10.8)
[2022-10-13 12:01] LABS: Alanine Aminotransferase 28 U/L (0-40); Albumin Level 4.7 g/dL (3.5-5.0); Alkaline Phosphatase 56 U/L (39-117); Anion Gap 13 (12-20); Aspartate Amino Transferase 31 U/L (5-37); Bilirubin Total 0.5 mg/dL (0.0-1.0); Blood Urea Nitrogen 19 mg/dL (9-16); Calcium 9.3 mg/dL (8.4-10.2); Carbon Dioxide 30 mmol/L (22-29); Chloride 101 mmol/L (96-108); Cholesterol 303 mg/dL; Estimated Glomerular Filt Rate 36; Glucose Fasting 109 mg/dL (60-99); HDL Cholesterol 37 mg/dL; LDL Cholesterol Calculated 205 mg/dl; Potassium 3.7 mmol/L (3.3-5.1); Sodium 140 mmol/L (135-145); Total Protein 7.3 g/dL (6.5-8.0); Triglycerides 306 mg/dL
[2022-10-13 12:18] LABS: Microalbum/Creatinine Ratio Ur 17.6 ug/mg cr
[2022-10-13 12:23] LABS: TSH reflex Free T4 43.84 uIU/mL (0.32-4.0)
[2022-10-13 14:51] LABS: Free T4 (Free Thyroxine) < 0.42 ng/dL (0.71-1.85)
== END 2022-10-13 10:18 | disposition home or self-care (01) ==
LOC: HO.LAB 10:17
PROVIDERS: PCP Physician Assistant; Visit Provider Physician Assistant
DX: I10 Essential (primary) hypertension (principal); E03.9 Hypothyroidism, unspecified
CPT/HCPCS: 36415; 80053; 80061; 82043; 84439; 84443; 85027

== ENCOUNTER 2023-01-24 13:37 | Outpatient (AMB) | payer OTHER, SELFPAY ==
[2023-01-24 13:43] VITALS: BP 108/70; PULSE 64; O2SAT 97
--- NOTE | 2023-01-24 13:43 | A.OFFPC_ITS ---
Vital Signs 01/24/23 13:43 Height 6 ft 2 in Weight 233 lb 6 oz BMI 30.0 BP 108/70 Blood Pressure Location Lt brachial Position Sitting Pulse 64 Pulse Source Pulse Oximeter Pulse Oximetry (%) 97 Oxygen Delivery Method Room Air Intake Visit Reasons: f/u HTN Allergies baclofen [BACLOFEN] Allergy (Unknown, Verified 01/24/23 14:51) SWOLLEN LEGS lithium [LITHIUM] Allergy (Unknown, Verified 01/24/23 14:51) ALMOST , body shuts down methadone [METHADONE] Allergy (Unknown, Verified 01/24/23 14:51) HIVES, swelling topiramate [From TOPAMAX] Allergy (Unknown, Verified 01/24/23 14:51) FAINT Amitryptiline Allergy (Unknown, Uncoded 01/24/23 13:49) sleepiness propranolol Allergy (Unknown, Uncoded 01/24/23 13:49) dizziness Medication List - Last Reconciled 01/24/23 by Joni Ferreira PA-C acetaminophen (Tylenol Extra Strength) 1,000 mg (2 x 500 mg) PO QID PRN acetaminophen ER (Mapap Arthritis Pain) 650 mg PO Q6H albuterol sulfate 90 mcg/actuation 2 puffs inhalation Q6H PRN alprazolam 1 mg PO QID PRN amlodipine 10 mg PO DAILY 90 days aspirin 81 mg PO DAILY cholecalciferol (vitamin D3) (Vitamin D3) 25 mcg PO DAILY commode As directed cyclobenzaprine 10 mg PO Q8H diphenhydramine HCl (Banophen) 25 mg PO Q12H 30 days disposable gloves (Biobrane Gloves Large) As directed disposable gloves As directed duloxetine 40 mg PO BID famotidine 20 mg PO BEDTIME fluticasone propion-salmeterol 250-50 mcg/dose 1 inh inhalation BID fluticasone propionate 110 mcg/actuation (Flovent HFA) 1 puff inhalation BID 30 days fluticasone propionate 50 mcg/actuation 2 sprays intranasal DAILY 30 days gabapentin 800 mg PO TID ibuprofen 800 mg PO TID PRN 30 days incontinence pad, liner, disp (Prevail Bladder Control Pad) As directed levothyroxine 200 mcg PO DAILY 90 days metoprolol succinate ER 12.5 mg PO DAILY miscellaneous medical supply 1 ea miscellaneous ONCE 90 days miscellaneous medical supply 1 ea miscellaneous DAILY miscellaneous medical supply 1 ea miscellaneous DAILY 90 days miscellaneous medical supply 1 ea miscellaneous .daily 99 days miscellaneous medical supply 1 ea miscellaneous DAILY 99 days multivitamin 1 tab PO DAILY naloxone 4 mg/actuation (Narcan) 4 mg intranasal Q2M PRN nitroglycerin 0.4 mg sublingual Q5M PRN promethazine 25 mg PO DAILY PRN 30 days simvastatin 10 mg PO DAILY 90 days ticagrelor 90 mg PO BID tizanidine 4 mg PO TID PRN zolpidem 10 mg PO BEDTIME Tobacco use date assessed: 08/18/22 HPI f/u HTN HPI Details Anthony is a 62 year-old?Male here for a f/u visit . Patient has a past medical history bipolar, hypertension, HIV, asthma, chronic pain syndrome, CKD stage 3. recently admitted to [facility] for acute Chest pain and SOB. Patient found to have abnormal EKG findings. Cardiac catheterization did show multivessel coronary artery disease and stent have been placed. Patient started metoprolol, aspirin, Brilinta and nitro for chest pain. 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 PLAN; will plan to start low-dose simvastatin 10 mg with goal LDL to be below 70 . Hypothyroidism: Continues on high-dose levothyroxine 200 mcg. Will recheck his TSH has most recent TSH at 49. Also had elevated cholesterol in the setting of having elevated total cholesterol and LDL. ? .. ? Chronic pain syndrome/ lumbar stenosis:? Does follow [facility] pain management for pain reduction modalities.? He is currently off of all narcotic pain medication and currently using Cymbalta, ibuprofen and Tylenol for his pain.? Also using marijuana. . ? CHRONIC MEDICAL CONDITION HISTORY--> ? .. Hypertension:? Blood pressure much better controlled since coronary artery stents placed. Now on metoprolol. .. ? HIV: Patient is followed by an infectious disease at [facility] and viral load has been undetectable. ? .. ? Depression: Patient continues to be followed by his therapist ( Miryam Crowley ) . He reports he would like to get off of mental health medications and will work with his psychiatrist on weaning and disc continuing medication. .. CKD stage 3:? Continues to follow Nephrology, most recent creatinine at 2.0.? H as been having somewhat of a difficult time managing blood pressure. ? . ? Asthma: He reports his asthma has been sable with the use of his maintenance inhalers. He denies any exacerbations as of late.? Reports his asthma gets worse during the change of seasons due to allergies.? Does use Benadryl 25 mg b.i.d.. ? .. ? Yudelka Cruz does report having migraines when having neck pain flares. ? Uses Fioricet on an as-needed basis for acute migraines. 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 Overweight PTSD (post-traumatic stress disorder) Renal insufficiency Spinal stenosis at L4-L5 level Urinary frequency Surgical History History of colonoscopy Family History Father History of cirrhosis Mother History of high blood pressure History of diabetes mellitus History of asthma Social History Housing: Apartment Alcohol intake: never Patient Tobacco Use Status: Never used Tobacco e-Cigarette/Vaping Use: Never Used Second Hand Smoke Exposure: Yes service: No Current occupational status: disabled Cognitive needs: Yes (walker, cane, wheel chair) Hearing needs: No Vision needs: No Questionnaire PHQ-9 Over the last 2 weeks, how often have you been bothered by any of the following problems? 1. Little interest or pleasure in doing things: not at all 2. Feeling down, depressed, or hopeless: not at all 3. Trouble falling or staying asleep, or sleeping too much: not at all 4. Feeling tired or having little energy: not at all 5. Poor appetite or overeating: not at all 6. Feeling bad about yourself - or that you are a failure or have let yourself or your family down: not at all 7. Trouble concentrating on things, such as reading the newspaper or watching television: not at all 8. Moving or speaking so slowly that other people could have noticed. Or the opposite - being so fidgety or restless that you have been moving around a lot more than usual: not at all 9. Thoughts that you would be better off or of hurting yourself in some way: not at all Total score: 0 Depression Screening Interpretation: Negative 87413 - PHQ-9 Billing: Yes Source: Developed by Drs. Stewart Mims, Migdalia Hagen, Oral Harvey and colleagues, with an educational evelio from [employer]. Thrive Questionnaire Date Thrive assessed: 08/18/22 I am a: Patient What is your living situation today?: I have a steady place to live Within the past 12 months, did the food you bought not last and you didn't have the money to get more?: Never true Within the past 12 months, did you worry whether your food would run out before you got money to buy more?: Never true Currently or been in a relationship where the following occur: no concerns reported AUDIT C Alcohol Use Questionnaire (AUDIT-C) 1. How often do you have a drink containing alcohol?: Never 3. How often do you have six or more drinks on one occasion?: Never Total Score: 0 ALBERT-7 AMB Questionnaire ALBERT-7 Date ALBERT - 7 assessed: 08/18/22 Feeling nervous, anxious, or on edge: 0 = Not at all Not being able to stop or control worryin = Not at all Worrying too much about different things: 0 = Not at all Trouble relaxin = Not at all Being so restless that it is hard to sit still: 0 = Not at all Becoming easily annoyed or irritable: 0 = Not at all Feeling afraid as if something awful might happen: 0 = Not at all Total ALBERT-7 score (0-4 normal; 5-9 mild; 10-14 moderate; 15-21 severe): 0 Source: Developed by Drs. Stewart Mims, Migdalia Hagen, Oral Harvey and colleagues, with an educational evelio from [employer]. ALBERT-7 Assessment Billing ALBERT-7 Assessment Tool: ALBERT-7 Assessment 44431 Review of Systems Const Denies headache(s) Eyes Denies loss of vision ENT Denies vertigo, Denies dizziness, Denies headache(s) and Denies sore throat Card Denies chest pain, Denies leg edema and Denies lightheadedness Resp Denies cough, Denies hemoptysis and Denies wheezing GI Denies abdominal pain, Denies melena, Denies constipation, Denies diarrhea and Denies vomiting Denies dysuria, Denies urinary frequency and Denies urinary urgency Musc Denies arthralgias, Denies joint swelling, Denies numbness and Denies tingling Neuro Denies Abnormal speech present, Denies behavioral changes, Denies vertigo, Denies dizziness, Denies headache(s), Denies loss of vision, Denies memory loss, Denies numbness and Denies tingling Psych Denies anxiety, Denies behavioral changes, Denies depression, Denies memory loss and Denies panic attacks Levi/Lymph Denies easy bleeding and Denies easy bruising Aller/Immun Denies wheezing Physical exam (Primary Care) Vital Signs: Last Vital Signs Pulse 64 01/24/23 13:43 BP 108/70 01/24/23 13:43 Pulse Ox 97 01/24/23 13:43 Oxygen Delivery Method Room Air 01/24/23 13:43 BMI result Body Mass Index 30.0 Tobacco/Smoking Status: Tobacco use Status Tobacco use date assessed 08/18/22 01/24/23 13:46 Patient Tobacco Use Status Never used Tobacco 01/24/23 13:46 e-Cigarette/Vaping Use Never Used 01/24/23 13:46 PHQ-9: PHQ-9 Score PHQ-9: Total score 0 01/24/23 14:18 Depression Screening Interpretation: Negative Thrive Assessment: Date of Thrive Assessment Date Thrive assessed 08/18/22 01/24/23 13:46 Currently or been in a relationship where the following occur: no concerns reported Const General: healthy appearing, no acute distress, alert and awake Nutritional Appearance: well nourished Orientation/consciousness: oriented to person, oriented to place and oriented to time HENMT Ears: TM's normal bilaterally General nose exam: Normal nasal mucous membranes and turbinates present Eyes Conjunctivae: conjunctivae normal Sclerae: sclerae normal Pupils: Equal, round and reactive pupils present Neck Neck: Yes no lymphadenopathy and Yes no JVD Thyroid: Thyroid normal Carotids: no bruits Resp Effort & Inspection: normal respiratory effort and not tachypneic Auscultation: no crackles, no rales, no rhonchi and no wheezes Cardio Rate: regular rate Rhythm: regular rhythm Heart sounds: no murmurs and normal S1 and S2 GI Palpation (GI): Soft to palpation, nontender, no hepatomegaly and no splenomegaly Auscultation: normal bowel sounds Skin General skin exam: no rashes or lesions noted and dry skin Neuro General: oriented to person, oriented to place and oriented to time Cranial nerves: Yes Equal, round and reactive pupils present Speech: No Abnormal speech present Gait exam (Neuro): Normal gait present Motor exam (neuro): no tremor noted Extrem Right upper extremity: full ROM Left upper extremity: full ROM Right lower extremity: full ROM; no edema Left lower extremity: full ROM; no edema Psych Mental Status: mental status grossly normal Speech and movement: Normal speech and movement present Affect: normal affect Attitude: cooperative Thought process: Normal thought process present Assessment and Plan Assessment & Plan (1) CAD (coronary artery disease) of artery bypass graft: Code(s): I25.810 - Atherosclerosis of coronary artery bypass graft(s) without angina pectoris Qualifiers: Associated angina: with stable angina Craig vs. transplanted heart: paimiut heart Qualified Code(s): I25.708 - Atherosclerosis of coronary artery bypass graft(s), unspecified, with other forms of angina pectoris Plan: Patient recently underwent cardiac catheterization and found to have multivessel coronary artery disease. Patient placed on dual anti-platelet therapy and metoprolol. Has been set up with a [facility] poultry inspector and will be starting cardiac rehab in near future. Place on statin therapy as well with goal LDL to be below 70 (2) Obese: Code(s): E66.9 - Obesity, unspecified Qualifiers: Body mass index: BMI 32.0-32.9 Obesity classification: adult class 1 ( BMI 30 - 34.9) Obesity type: due to excess calories Serious obesity comorbidity presence: with serious comorbidity Qualified Code(s): E66.09 - Other obesity due to excess calories; Z68.32 - Body mass index [BMI] 32.0-32.9, adult Plan: Patient does understand his BMI is at 30 will continue working on lifestyle modifications to continue losing weight. (3) Hypothyroid: Code(s): E03.9 - Hypothyroidism, unspecified Qualifiers: Hypothyroidism type: unspecified Qualified Code(s): E03.9 - Hypothyroidism, unspecified Plan: Patient continues on high-dose levothyroxine 200 mcg. Most recent TSH at 49. He does assure me he does take levothyroxine on empty stomach every morning. Will recheck TSH to assure normal. (4) HTN (hypertension): Code(s): I10 - Essential (primary) hypertension Qualifiers: Hypertension type: essential hypertension Qualified Code(s): I10 - Essential (primary) hypertension Plan: Patient's blood pressure acceptable today in office. Will continue him on his current dose of amlodipine and metoprolol. He reports his blood pressures have been better since stent placement. Orders: Orders Lipid Panel Today I25.708 - Atherosclerosis of coronary artery bypass graft(s), unspecified, with other forms of angina pectoris TSH reflex Free T4 Today E03.9 - Hypothyroidism, unspecified Comprehensive [place]. Panel Fast Today I25.708 - Atherosclerosis of coronary artery bypass graft(s), unspecified, with other forms of angina pectoris Medications: New simvastatin 10 mg PO DAILY 90 tabs 3RF 90 days I25.708 - Atherosclerosis of coronary artery bypass graft(s), unspecified, with other forms of angina pectoris Coding Level of Care Code Est Pt Level 4 (85273) Diagnoses CAD (coronary artery disease) of artery bypass graft I25.708 Associated angina: with stable angina Craig vs. transplanted heart: paimiut heart Obese E66.09; Z68.32 Body mass index: BMI 32.0-32.9 Obesity classification: adult class 1 (BMI 30 - 34.9) Obesity type: due to excess calories Serious obesity comorbidity presence: with serious comorbidity Hypothyroid E03.9 Hypothyroidism type: unspecified HTN (hypertension) I10 Hypertension type: essential hypertension Additional Codes ALBERT-7 Assessment Billing - ALBERT-7 Assessment Tool: ALBERT-7 Assessment 62080 ([id number])
== END 2023-01-24 14:14 | disposition home or self-care (01) ==
PROVIDERS: Visit Provider Physician Assistant
DX: E03.9 Hypothyroidism, unspecified (principal); I10 Essential (primary) hypertension; E66.09 Other obesity due to excess calories; Z68.32 Body mass index [BMI] 32.0-32.9, adult; I25.708 Atherosclerosis of coronary artery bypass graft(s), unspecified, with other forms of angina pectoris
CPT/HCPCS: 99214

== ENCOUNTER 2023-06-01 10:50 | Outpatient (AMB) | payer OTHER, SELFPAY ==
--- NOTE | 2023-06-01 11:05 | A.OFFVIS_ITS ---
Intake Vital Signs 06/01/23 11:07 Height 6 ft 2 in Weight 219 lb 2 oz BMI 28.1 BP 138/80 Blood Pressure Location Lt brachial Position Sitting Respiration 17 Pulse 67 Pulse Source Pulse Oximeter Pulse Oximetry (%) 98 Oxygen Delivery Method Room Air Intake Visit Reasons: NPV-Abnormalities gait/Mobility-LVM Intake Note: Pt presents to the office for a new pt evaluation for gait abnormalities. 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 Allergies baclofen [BACLOFEN] Allergy (Unknown, Verified 06/01/23 11:06) SWOLLEN LEGS lithium [LITHIUM] Allergy (Unknown, Verified 06/01/23 11:06) ALMOST , body shuts down methadone [METHADONE] Allergy (Unknown, Verified 06/01/23 11:06) HIVES, swelling topiramate [From TOPAMAX] Allergy (Unknown, Verified 06/01/23 11:06) FAINT Amitryptiline Allergy (Unknown, Uncoded 06/01/23 11:06) sleepiness propranolol Allergy (Unknown, Uncoded 06/01/23 11:06) dizziness Medication List - Last Reconciled 06/01/23 by Vibha Jackson MD acetaminophen (Tylenol Extra Strength) 1,000 mg (2 x 500 mg) PO QID PRN acetaminophen ER (Mapap Arthritis Pain) 650 mg PO Q6H albuterol sulfate 90 mcg/actuation 2 puffs inhalation Q6H PRN alprazolam 1 mg PO QID PRN amlodipine 10 mg PO DAILY 90 days aspirin 81 mg PO DAILY [cane As directed] cholecalciferol (vitamin D3) (Vitamin D3) 25 mcg PO DAILY commode As directed diphenhydramine HCl (Banophen) 25 mg PO Q12H 30 days disposable gloves (Biobrane Gloves Large) As directed disposable gloves As directed duloxetine 40 mg PO BID famotidine 20 mg PO BEDTIME fluticasone propion-salmeterol 250-50 mcg/dose 1 inh inhalation BID fluticasone propionate 110 mcg/actuation (Flovent HFA) 1 puff inhalation BID 30 days fluticasone propionate 50 mcg/actuation 2 sprays intranasal DAILY 30 days gabapentin 800 mg PO TID ibuprofen 800 mg PO TID PRN 30 days incontinence pad, liner, disp (Prevail Bladder Control Pad) As directed levothyroxine 200 mcg PO DAILY 90 days magnesium oxide 400 mg PO BEDTIME metoprolol succinate ER 12.5 mg PO DAILY miscellaneous medical supply 1 ea miscellaneous ONCE 90 days miscellaneous medical supply 1 ea miscellaneous DAILY miscellaneous medical supply 1 ea miscellaneous DAILY 90 days miscellaneous medical supply 1 ea miscellaneous .daily 99 days miscellaneous medical supply 1 ea miscellaneous DAILY 99 days multivitamin 1 tab PO DAILY naloxone 4 mg/actuation (Narcan) 4 mg intranasal Q2M PRN nitroglycerin 0.4 mg sublingual Q5M PRN promethazine 25 mg PO DAILY PRN 30 days riboflavin (vitamin B2) 400 mg PO QAM simvastatin 10 mg PO DAILY 90 days ticagrelor 90 mg PO BID tizanidine 4 mg PO TID PRN zolpidem 10 mg PO BEDTIME HPI HPI Comments History of Present Illness Details 62y/o male comes for evaluation of gait and balance issues. He has h/o chronic back issues and pain, fibromyalgia, arthritis. He started with back pain and gait issues about 10 years ago but has progressed since then. when he walks he feels like his legs are going to give out . He feels like his legs are tight and has pain in his legs. He has radiating pain from back to the legs R>L.He has had multiple falls. He also has urinary incontinence for 2 years and sees a urologist - not sure if it is a neurogenic bladder. He also has numbness and tingling but intermittent in his feet. He also has chronic neck and shoulder pain, headaches, migraines.He has migraines which are mostly occipital or temporal , eye pain, nausea, sensitivity to light noise smells etc. . It can last 1- 3 days. he was taking pain meds but now he is not taking any medications.He has 5-10 days a month of migraines. He denies speech issues He has intermittent vertigo rare diplopia. His sleep is poor- trouble initiating and has frequent awakenings due to pain.He has loud snoring and has excessive daytime sleepiness. 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 Disc degeneration, lumbar Spinal stenosis at L4-L5 level Fibromyalgia Asymptomatic HIV infection Left lumbar radiculopathy Chronic colitis Urinary frequency Depression PTSD (post-traumatic stress disorder) Overweight Hypothyroid HTN (hypertension) Renal insufficiency Affective bipolar disorder Asthma HIV (human immunodeficiency virus infection) Surgical History H/O heart artery stent History of colonoscopy Family History Father History of cirrhosis Mother History of high blood pressure History of diabetes mellitus History of asthma Social History Housing: Apartment Alcohol intake: never Patient Tobacco Use Status: Never used Tobacco e-Cigarette/Vaping Use: Never Used Second Hand Smoke Exposure: Yes service: No Current occupational status: disabled Cognitive needs: Yes (walker, cane, wheel chair) Hearing needs: No Vision needs: No Physical Exam Vital Signs: Last Vital Signs Pulse 67 06/01/23 11:07 Resp 17 06/01/23 11:07 BP 138/80 06/01/23 11:07 Pulse Ox 98 06/01/23 11:07 Oxygen Delivery Method Room Air 06/01/23 11:07 BMI result Body Mass Index 28.1 Const Orientation/consciousness: patient oriented x3 Eyes Pupils: Equal, round and reactive pupils present Neuro Other: Gait- normal base, mild decreased stride, normal posture, antalgic General: patient oriented x3, tone normal and moves all extremities Cranial nerves: Yes Facial sensation intact/muscles of mastication intact, Yes Equal, round and reactive pupils present, Yes Bilaterally intact EOM present, Yes Nystagmus not present, Yes Normal facial strength present and Yes Midline tongue present Cognition (Neuro): normal cognition Gait exam (Neuro): Antalgic gait present Motor exam (neuro): 5/5 motor strength present throughout and Normal motor muscle tone present throughout Deep tendon reflexes (DTR's): Right triceps reflex intensity grade: 1+, Left triceps reflex intensity grade: 1+, Rt Biceps (C5, C6): 1+, Left biceps reflex intensity grade: 1+, Right brachioradialis reflex intensity grade: 1+, Left brachioradialis reflex intensity grade: 1+, Right patellar reflex intensity grade: 1+ and Left patellar reflex intensity grade: 1+ Coordination: [id number] test normal Assessment & Plan Assessment & Plan (1) Gait disorder: Comment: multifactorial musculoskeletal, lumbar spinal stenosis, cervical spondylosis Code(s): R26.9 - Unspecified abnormalities of gait and mobility (2) Migraine headache without aura: Code(s): G43.009 - Migraine without aura, not intractable, without status migrainosus (3) Cervicogenic headache: Code(s): G44.86 - Cervicogenic headache Plan I suggested PT for his gait I will check his Vit B1, 12 and E level to r/o nutritional causes I will trial him on magnesium 400mg qhs and Vit B 2 400 mg qam to decrease migraines AVoid triptans, ergots, any stimulants due to cardiac issues Tylenol as neede for migraine Orders: Orders Vitamin D 25-OH (D2 and D3) Today R26.89 - Other abnormalities of gait and mobility, R26.9 - Unspecified abnormalities of gait and mobility Comprehensive Met. Panel Today R26.89 - Other abnormalities of gait and mobility, R26.9 - Unspecified abnormalities of gait and mobility TSH reflex Free T4 Today R26.89 - Other abnormalities of gait and mobility, R26.9 - Unspecified abnormalities of gait and mobility Vitamin E Today R26.89 - Other abnormalities of gait and mobility, R26.9 - Unspecified abnormalities of gait and mobility Vitamin B1 Today R26.89 - Other abnormalities of gait and mobility, R26.9 - Unspecified abnormalities of gait and mobility PT Evaluation and Treatment Today R26.9 - Unspecified abnormalities of gait and mobility Vitamin B12 and Folate Today R26.89 - Other abnormalities of gait and mobility, R26.9 - Unspecified abnormalities of gait and mobility Medications: New [cane] As directed 1 ea 0RF magnesium oxide 400 mg PO BEDTIME 30 caps 6RF riboflavin (vitamin B2) 400 mg PO QAM 30 tabs 6RF Coding Level of Care Code New Pt Level 4 (10172) Diagnoses Gait disorder R26.9 Migraine headache without aura G43.009 Cervicogenic headache G44.86
[2023-06-01 11:07] VITALS: BP 138/80; PULSE 67; RESP 17; O2SAT 98; BMI 28.1
== END 2023-06-01 11:46 | disposition home or self-care (01) ==
PROVIDERS: PCP Physician Assistant; Visit Provider Psychiatry & Neurology Neurology
DX: R26.9 Unspecified abnormalities of gait and mobility (principal); G43.009 Migraine without aura, not intractable, without status migrainosus; G44.86 Cervicogenic headache
CPT/HCPCS: 99204

== ENCOUNTER → 2023-06-01 10:50 | Outpatient (BNVA) | payer OTHER, SELFPAY | PROVIDERS: PCP Physician Assistant; Visit Provider Psychiatry & Neurology Neurology | DX: R26.9 Unspecified abnormalities of gait and mobility (principal); G43.009 Migraine without aura, not intractable, without status migrainosus; G44.86 Cervicogenic headache | CPT/HCPCS: 99202 ==

== ENCOUNTER 2023-07-06 09:31 | Outpatient (AMB) | payer OTHER, SELFPAY ==
[2023-07-06 09:32] VITALS: BP 122/68; PULSE 59; O2SAT 98; BMI 30.3
--- NOTE | 2023-07-06 09:32 | MHC.PC.OV ---
Vital Signs 07/06/23 09:32 Height 6 ft 2 in Weight 235 lb 14.314 oz BMI 30.3 BP 122/68 Blood Pressure Location Lt brachial Position Sitting Pulse 59 Pulse Source Pulse Oximeter Pulse Oximetry (%) 98 Oxygen Delivery Method Room Air Intake Visit Reasons: [facility] Cardio Rehab/HDF Intake Note: The patient is present to address several concerns with the healthcare provider, including requests for referrals and follow-up regarding a recent heart attack. Relations Liaison Required: No Accompanied by: Self / Same As Patient Allergies baclofen [BACLOFEN] Allergy (Unknown, Verified 07/06/23 09:44) SWOLLEN LEGS lithium [LITHIUM] Allergy (Unknown, Verified 07/06/23 09:44) ALMOST , body shuts down methadone [METHADONE] Allergy (Unknown, Verified 07/06/23 09:44) HIVES, swelling topiramate [From TOPAMAX] Allergy (Unknown, Verified 07/06/23 09:44) FAINT Amitryptiline Allergy (Unknown, Uncoded 07/06/23 09:33) sleepiness propranolol Allergy (Unknown, Uncoded 07/06/23 09:33) dizziness Medication List - Last Reconciled 07/06/23 by Joni Ferreira PA-C acetaminophen (Tylenol Extra Strength) 1,000 mg (2 x 500 mg) PO QID PRN acetaminophen ER (Mapap Arthritis Pain) 650 mg PO Q6H albuterol sulfate 90 mcg/actuation 2 puffs inhalation Q6H PRN alprazolam 1 mg PO QID PRN amlodipine 10 mg PO DAILY 90 days aspirin 81 mg PO DAILY [cane As directed] cholecalciferol (vitamin D3) (Vitamin D3) 25 mcg PO DAILY commode As directed diphenhydramine HCl (Banophen) 25 mg PO Q12H 30 days disposable gloves (Biobrane Gloves Large) As directed disposable gloves As directed duloxetine 40 mg PO BID famotidine 20 mg PO BEDTIME fluticasone propion-salmeterol 250-50 mcg/dose 1 inh inhalation BID fluticasone propionate 110 mcg/actuation (Flovent HFA) 1 puff inhalation BID 30 days fluticasone propionate 50 mcg/actuation 2 sprays intranasal DAILY 30 days gabapentin 800 mg PO TID ibuprofen 800 mg PO TID PRN 30 days incontinence pad, liner, disp (Prevail Bladder Control Pad) As directed levothyroxine 200 mcg PO DAILY 90 days magnesium oxide 400 mg PO BEDTIME metoprolol succinate ER 12.5 mg PO DAILY miscellaneous medical supply 1 ea miscellaneous ONCE 90 days miscellaneous medical supply 1 ea miscellaneous DAILY miscellaneous medical supply 1 ea miscellaneous DAILY 90 days miscellaneous medical supply 1 ea miscellaneous .daily 99 days miscellaneous medical supply 1 ea miscellaneous DAILY 99 days multivitamin 1 tab PO DAILY naloxone 4 mg/actuation (Narcan) 4 mg intranasal Q2M PRN nitroglycerin 0.4 mg sublingual Q5M PRN promethazine 25 mg PO DAILY PRN 30 days riboflavin (vitamin B2) 400 mg PO QAM simvastatin 10 mg PO DAILY 90 days ticagrelor 90 mg PO BID tizanidine 4 mg PO TID PRN zolpidem 10 mg PO BEDTIME Tobacco use date assessed: 07/06/23 Dental Screening Dental Screen Date: 07/06/23 Did you have a dental visit in the last 12 months?: Yes Did you have a dental problem in the last 6 months where you did not have access to dental care?: No Was dental information given to patient?: Patient has dentist HPI [facility] Cardio Rehab/HDF HPI Details Anthony is a 62 year-old?Male here for a f/u visit . Patient has a past medical history bipolar, hypertension, HIV, asthma, chronic pain syndrome, CKD stage 3. TODAY HAS MULTIPLE COMPLAINTS AND REQUESTS FROM PCP OFFICE He reports he is very focus on his health and now has a care team (counselor, STATEMENT REQUEST CLERK is ect..) that are helping him. . CAD: Interval history--> Cardiac catheterization did show multivessel coronary artery disease and stent have been placed. Patient started metoprolol, aspirin, Brilinta and nitro for chest pain. He has been attending cardiac rehab at [facility] Cholesterol panel has showed acceptable LDL with current dose of statin therapy .. Urinary incontinence: He is partially wheelchair-bound at this point as he does report a lot of joint pains in lower extremity weakness. He does walk from time to time. He does have a STATEMENT REQUEST CLERK in the days and evenings to help him with activities of daily living. . Hypothyroidism: Continues on high-dose levothyroxine 200 mcg. Will recheck his TSH has most recent TSH at 49. Also had elevated cholesterol in the setting of having elevated total cholesterol and LDL. ? .. ? Chronic pain syndrome/ lumbar stenosis:? Does follow [place] pain management for pain reduction modalities.? He is currently off of all narcotic pain medication and currently using Cymbalta,Tylenol for his pain.? Also using marijuana at times. . ? CHRONIC MEDICAL CONDITION HISTORY--> ? .. Hypertension:? Blood pressure much better controlled since coronary artery stents placed. Now on metoprolol. .. ? HIV: Patient is followed by an infectious disease at [facility] and viral load has been undetectable. ? .. ? Depression: Patient continues to be followed by his therapist ( Miryam Crowley ) . He reports he would like to get off of mental health medications and will work with his psychiatrist on weaning and disc continuing medication. .. CKD stage 3:? Needs new electronics hardware design engineer, most recent creatinine at 2.0.? Has been having somewhat of a difficult time managing blood pressure. ? . ? Asthma: He reports his asthma has been stable with the use of his maintenance inhalers. He denies any exacerbations as of late.? Reports his asthma gets worse during the change of seasons due to allergies.? Does use Benadryl 25 mg several times a day. ? .. ? Migrianes : Patient now followed by neurology and had recent visit to which he has started up on vitamins B2 and magnesium though does not report any reduction in frequency of his migraines ?? ?He is asking for new migraine medication [facility] Medical History (Updated 07/06/23 @ 10:22 by Joni Ferreira PA-C) Cervicogenic headache Migraine headache without aura Gait disorder detention (current) use of opiate analgesic Disc degeneration, lumbar Spinal stenosis at L4-L5 level Fibromyalgia Asymptomatic HIV infection Left lumbar radiculopathy Chronic colitis Urinary frequency Depression PTSD (post-traumatic stress disorder) Overweight Hypothyroid HTN (hypertension) Renal insufficiency Affective bipolar disorder Asthma HIV (human immunodeficiency virus infection) Surgical History H/O heart artery stent History of colonoscopy Family History Father History of cirrhosis Mother History of high blood pressure History of diabetes mellitus History of asthma Social History Housing: Apartment Alcohol intake: never Patient Tobacco Use Status: Never used Tobacco e-Cigarette/Vaping Use: Never Used Second Hand Smoke Exposure: Yes service: No Current occupational status: disabled Cognitive needs: Yes (walker, cane, wheel chair) Hearing needs: No Vision needs: No Questionnaire Thrive Questionnaire Date Thrive assessed: 08/18/22 AUDIT C Alcohol Use Questionnaire (AUDIT-C) 1. How often do you have a drink containing alcohol?: Never 3. How often do you have six or more drinks on one occasion?: Never Total Score: 0 ALBERT-7 AMB Questionnaire ALBERT-7 Date ALBERT - 7 assessed: 08/18/22 Source: Developed by Drs. Stewart Mims, Migdalia Hagen, Oral Harvey and colleagues, with an educational evelio from [employer]. Review of Systems Const Reports headache(s) Eyes Denies loss of vision ENT Denies vertigo, Denies dizziness, Reports headache(s) and Denies sore throat Card Denies chest pain, Denies leg edema and Denies lightheadedness Resp Denies cough, Denies hemoptysis and Denies wheezing GI Denies abdominal pain, Denies melena, Denies constipation, Denies diarrhea and Denies vomiting Denies dysuria, Denies urinary frequency and Denies urinary urgency Musc Reports back pain, Reports arthralgias, Reports joint swelling, Reports numbness and Reports tingling Neuro Denies Abnormal speech present, Denies behavioral changes, Denies vertigo, Denies dizziness, Reports headache(s), Denies loss of vision, Denies memory loss, Reports numbness and Reports tingling Psych Denies anxiety, Denies behavioral changes, Denies depression, Denies memory loss and Denies panic attacks Levi/Lymph Denies easy bleeding and Denies easy bruising Aller/Immun Denies wheezing Physical exam (Primary Care) Vital Signs: Last Vital Signs Pulse 59 07/06/23 09:32 BP 122/68 07/06/23 09:32 Pulse Ox 98 07/06/23 09:32 Oxygen Delivery Method Room Air 07/06/23 09:32 BMI result Body Mass Index 30.3 BMI Assessment/Plan discussion: High Tobacco/Smoking Status: Tobacco use Status Tobacco use date assessed 07/06/23 07/06/23 09:33 Patient Tobacco Use Status Never used Tobacco 07/06/23 09:33 e-Cigarette/Vaping Use Never Used 07/06/23 09:33 Thrive Assessment: Date of Thrive Assessment Date Thrive assessed 08/18/22 07/06/23 09:33 Const Other: Sitting comfortably in wheelchair General: healthy appearing, no acute distress, alert and awake Nutritional Appearance: well nourished Orientation/consciousness: oriented to person, oriented to place and oriented to time HENMT Ears: TM's normal bilaterally General nose exam: Normal nasal mucous membranes and turbinates present Eyes Conjunctivae: conjunctivae normal Sclerae: sclerae normal Pupils: Equal, round and reactive pupils present Neck Neck: Yes no lymphadenopathy and Yes no JVD Thyroid: Thyroid normal Carotids: no bruits Resp Effort & Inspection: normal respiratory effort and not tachypneic Auscultation: no crackles, no rales, no rhonchi and no wheezes Cardio Rate: regular rate Rhythm: regular rhythm Heart sounds: no murmurs and normal S1 and S2 GI Palpation (GI): Soft to palpation, nontender, no hepatomegaly and no splenomegaly Auscultation: normal bowel sounds Skin General skin exam: no rashes or lesions noted and dry skin Neuro General: oriented to person, oriented to place and oriented to time Cranial nerves: Yes Equal, round and reactive pupils present Speech: No Abnormal speech present Gait exam (Neuro): Normal gait present Motor exam (neuro): no tremor noted Extrem Other: BILATERAL LOWER EXTREMITIES WITHOUT ANY NOTABLE MUSCLE ATROPHY. WHEN STANDING SEEMS SOMEWHAT UNBALANCED Right upper extremity: full ROM Left upper extremity: full ROM Right lower extremity: full ROM; no edema Left lower extremity: full ROM; no edema Psych Mental Status: mental status grossly normal Speech and movement: Normal speech and movement present Affect: normal affect Attitude: cooperative Thought process: Normal thought process present Assessment and Plan Assessment & Plan (1) CAD (coronary artery disease) of artery bypass graft: Code(s): I25.810 - Atherosclerosis of coronary artery bypass graft(s) without angina pectoris Qualifiers: Associated angina: with stable angina [place] vs. transplanted heart: [place] Qualified Code(s): I25.708 - Atherosclerosis of coronary artery bypass graft(s), unspecified, with other forms of angina pectoris Plan: Patient recently underwent cardiac catheterization and found to have multivessel coronary artery disease. Patient placed on dual anti-platelet therapy and metoprolol. Has been set up with a [facility] cook room supervisor and will be starting cardiac rehab in near future. Place on statin therapy as well with goal LDL to be below 70 (2) Spinal stenosis at L4-L5 level: Code(s): M48.061 - Spinal stenosis, lumbar region without neurogenic claudication Plan: Patient does have a history of spinal stenosis and was followed by pain management the past though has lost follow-up. Continues to have lower back pain accompanied with a lot of right lower extremity weakness. He is partially wheelchair-bound as he presents in a wheelchair today. He is asking for a electric wheelchair and a stair lift though needs physical therapy evaluation. Will refer to [facility] physical therapy for evaluation for the need of a electric chair. Note did have an MRI in 2020 of his lumbar spine showing moderate spondylosis and A bulging disc in conjunction with facet degenerative change at L5-S1 also causes moderate compression of left L5 foraminal nerve root and mild compression of the right L5 foraminal nerve root (3) Obese: Code(s): E66.9 - Obesity, unspecified Qualifiers: Body mass index: BMI 32.0-32.9 Obesity classification: adult class 1 (BMI 30 - 34.9) Obesity type: due to excess calories Serious obesity comorbidity presence: with serious comorbidity Qualified Code(s): E66.09 - Other obesity due to excess calories; Z68.32 - Body mass index [BMI] 32.0-32.9, adult Plan: Patient does understand his BMI is at 30 will continue working on lifestyle modifications to continue losing weight. (4) Hypothyroid: Code(s): E03.9 - Hypothyroidism, unspecified Qualifiers: Hypothyroidism type: unspecified Qualified Code(s): E03.9 - Hypothyroidism, unspecified Plan: Patient continues on high-dose levothyroxine 200 mcg. Most recent TSH at 49. He does assure me he does take levothyroxine on empty stomach every morning. Will recheck TSH to assure normal. (5) HTN (hypertension): Code(s): I10 - Essential (primary) hypertension Qualifiers: Hypertension type: essential hypertension Qualified Code(s): I10 - Essential (primary) hypertension Plan: Patient's blood pressure acceptable today in office. Will continue him on his current dose of amlodipine and metoprolol. He reports his blood pressures have been better since stent placement. (6) Polyarthralgia: Code(s): M25.50 - Pain in unspecified joint Plan: Patient continues to complain of polyarthralgia. Does take gabapentin and tizanidine. Was previously on narcotic pain medication though has taken herself off of this. Unclear if he has had workup with Rheumatology in the past though will start with Rheumatology lab work. He is interested in seeing a greenhouse staff (7) Fibromyalgia: Code(s): M79.7 - Fibromyalgia Plan: Patient has a long history of chronic pain for many years. And was on narcotic pain medication in the past though has been taken off this. Will seeing pain management in the past though lost follow-up due to being late for an appointment. (8) CKD (chronic kidney disease) stage 3, GFR 30-59 ml/min: Code(s): N18.30 - Chronic kidney disease, stage 3 unspecified Qualifiers: Chronic kidney disease stage 3 subtype: stage 3a (GFR 45-59) Qualified Code(s): N18.31 - Chronic kidney disease, stage 3a Plan: Patient does have CKD stage 3. Advised to get fasting labs done to recheck renal function. Was followed by Nephrology though reports his provider left the practice. Needs new nephrology follow-up. (9) HIV (human immunodeficiency virus infection): Code(s): B20 - Human immunodeficiency virus [HIV] disease Qualifiers: HIV symptom status: asymptomatic, with no history of HIV-related illness Qualified Code(s): Z21 - Asymptomatic human immunodeficiency virus [HIV] infection status Plan: Continues to follow a infectious disease specialist in [facility]. He reports his viral load has been undetectable. (10) Migraine headache without aura: Code(s): G43.009 - Migraine without aura, not intractable, without status migrainosus Qualifiers: Intractability: not intractable Status migrainosus presence: without status migrainosus Qualified Code(s): G43.009 - Migraine without aura, not intractable, without status migrainosus Plan: Has seen neurologists recently was started on vitamin B12 and magnesium. He does not report any reduction in his frequency or migraine severity. Is asking for Fioricet again though has side effects with his cardiac medication. (11) Allergic rhinitis: Code(s): J30.9 - Allergic rhinitis, unspecified Qualifiers: Allergic rhinitis seasonality: non-seasonal Allergic rhinitis trigger: unspecified Qualified Code(s): J30.89 - Other allergic rhinitis Plan: Reports he continues to have daily allergy symptoms with runny nose, sneezing and itchy eyes. He does use Benadryl on a every 4-6 hour basis. Does have Flonase that he uses on a daily basis though still has allergy symptoms. He is interested in seeing an ammunition specialist for full (12) Affective bipolar disorder: Code(s): F31.9 - Bipolar disorder, unspecified Qualifiers: Active/Remission status: currently active Current bipolar episode type: depressed Current episode severity: moderate Qualified Code(s): F31.32 - Bipolar disorder, current episode depressed, moderate Plan: Patient is followed by a mental therapist and a psychiatrist on a nearly weekly basis. He feels his mental health is fairly stable. (13) MDD (major depressive disorder), recurrent episode, moderate: Code(s): F33.1 - Major depressive disorder, recurrent, moderate Plan: Patient does follow a mental health therapist and a psychiatrist who manages his mental health medications. (14) Lower extremity edema: Code(s): R60.0 - Localized edema Plan: Often has lower extremity edema likely secondary to his sedentary lifestyle. He does use compression socks that are helpful in reducing his lower extremity edema. Will supply patient with new scripts for compression stockings. Orders: Orders Anti DNA DS Antibody Today M25.50 - Pain in unspecified joint ARCELIA Reflex Titer and Pattern Today M25.50 - Pain in unspecified joint Rheumatoid Factor Today M25.50 - Pain in unspecified joint PT Evaluation and Treatment 07/06/23 M48.061 - Spinal stenosis, lumbar region without neurogenic claudication Cyclic Citrullinated Peptide Today M25.50 - Pain in unspecified joint Referrals Nephrology Referral N18.31 - Chronic kidney disease, stage 3a Allergy & Immunology Referral J30.89 - Other allergic rhinitis Pain Management Referral M48.061 - Spinal stenosis, lumbar region without neurogenic claudication Medications: New diclofenac sodium 1% apply to single elbow, wrist or hand; for hand includes palm/fingers/back of hand 2 grams topical QID 100 grams 1RF 30 days M25.50 - Pain in unspecified joint compr.stocking,knee,long,large As directed 12 ea 3RF R60.0 - Localized edema alcohol swabs (Alcohol Wipes) 1 pad topical DAILY 200 ea 1RF 90 days R39.81 - Functional urinary incontinence Refilled miscellaneous medical supply 1 ea miscellaneous .daily 1 ea 0RF 99 days R39.81 - Functional urinary incontinence incontinence pad, liner, disp (Prevail Bladder Control Pad) As directed 144 ea 12RF R39.81 - Functional urinary incontinence miscellaneous medical supply 1 ea miscellaneous ONCE 2 ea 3RF 90 days R60.0 - Localized edema disposable gloves As directed 1,000 ea 3RF R39.81 - Functional urinary incontinence Coding Level of Care Code Est Pt Level 4 (51363) Diagnoses Coronary artery disease of bypass graft of [place] with stable angina pectoris I25.708 Associated angina: with stable angina [place] vs. transplanted heart: [place] Spinal stenosis at L4-L5 level M48.061 Class 1 obesity due to excess calories with serious comorbidity and body mass index (BMI) of 32.0 to 32.9 in adult E66.09; Z68.32 Body mass index: BMI 32.0-32.9 Obesity classification: adult class 1 (BMI 30 - 34.9) Obesity type: due to excess calories Serious obesity comorbidity presence: with serious comorbidity Hypothyroidism, unspecified type E03.9 Hypothyroidism type: unspecified Essential hypertension I10 Hypertension type: essential hypertension Polyarthralgia M25.50 Fibromyalgia M79.7 Stage 3a chronic kidney disease N18.31 Chronic kidney disease stage 3 subtype: stage 3a (GFR 45-59) Asymptomatic HIV infection, with no history of HIV-related illness Z21 HIV symptom status: asymptomatic, with no history of HIV-related illness Migraine without aura and without status migrainosus, not intractable G43.009 Intractability: not intractable Status migrainosus presence: without status migrainosus Non-seasonal allergic rhinitis, unspecified trigger J30.89 Allergic rhinitis seasonality: non-seasonal Allergic rhinitis trigger: unspecified Bipolar affective disorder, currently depressed, moderate F31.32 Active/Remission status: currently active Current bipolar episode type: depressed Current episode severity: moderate MDD (major depressive disorder), recurrent episode, moderate F33.1 Lower extremity edema R60.0
== END 2023-07-06 10:33 | disposition home or self-care (01) ==
PROVIDERS: PCP Physician Assistant; Visit Provider Physician Assistant
DX: I25.708 Atherosclerosis of coronary artery bypass graft(s), unspecified, with other forms of angina pectoris (principal); M48.061 Spinal stenosis, lumbar region without neurogenic claudication; E66.09 Other obesity due to excess calories; Z68.32 Body mass index [BMI] 32.0-32.9, adult; E03.9 Hypothyroidism, unspecified; M25.50 Pain in unspecified joint; M79.7 Fibromyalgia; G43.009 Migraine without aura, not intractable, without status migrainosus; J30.89 Other allergic rhinitis; R60.0 Localized edema
CPT/HCPCS: 99214

== ENCOUNTER 2023-07-20 10:50 | Outpatient (AMB) | payer OTHER, SELFPAY ==
[2023-07-20 11:14] VITALS: BP 144/88; PULSE 70; O2SAT 96; BMI 29.2
--- NOTE | 2023-07-20 11:14 | HO.NEPHOV ---
HPI HPI Comments History of Present Illness Details I had the privilege of seeing Anthony in follow-up of his chronic kidney disease. He has HIV and is on anti-retroviral medications. As per the patient he his CD4 count is good and his viral load is undetectable. He had been on lithium in the past. He is hypertensive and is on blood pressure lowering medications which is keeping his blood pressure at goal he denies being diabetic but takes nonsteroidal anti-inflammatory medications as on a needed basis. He had a coronary event needing stenting last year. Ever since he has gone through significant lifestyle modifications and has lost a lot of weight. He denies any chest pain, shortness of breath, proximal nocturnal dyspnea, orthopnea, pedal edema or any vascular symptoms. He continues to attend cardiac rehabilitation program. [facility] Medical History (Updated 07/06/23 @ 10:22 by Joni Ferreira PA-C) Cervicogenic headache Migraine headache without aura Gait disorder group home (current) use of opiate analgesic Disc degeneration, lumbar Spinal stenosis at L4-L5 level Fibromyalgia Asymptomatic HIV infection Left lumbar radiculopathy Chronic colitis Urinary frequency Depression PTSD (post-traumatic stress disorder) Overweight Hypothyroid HTN (hypertension) Renal insufficiency Affective bipolar disorder Asthma HIV (human immunodeficiency virus infection) Surgical History H/O heart artery stent History of colonoscopy Family History Father History of cirrhosis Mother History of high blood pressure History of diabetes mellitus History of asthma Social History Housing: Apartment Alcohol intake: never Patient Tobacco Use Status: Never used Tobacco e-Cigarette/Vaping Use: Never Used Second Hand Smoke Exposure: Yes service: No Current occupational status: disabled Cognitive needs: Yes (walker, cane, wheel chair) Hearing needs: No Vision needs: No Vital Signs 07/20/23 11:14 Height 6 ft 2 in Weight 227 lb 6 oz BMI 29.2 BP 144/88 H Blood Pressure Location Rt brachial Position Sitting Pulse 70 Pulse Source Pulse Oximeter Pulse Oximetry (%) 96 Oxygen Delivery Method Room Air Physical Exam Vital Signs: Last Vital Signs Pulse 70 07/20/23 11:14 BP 144/88 H 07/20/23 11:14 Pulse Ox 96 07/20/23 11:14 Oxygen Delivery Method Room Air 07/20/23 11:14 BMI result Body Mass Index 29.2 Const General: comfortable and no acute distress Orientation/consciousness: patient oriented x3 HEENT Head: Yes normocephalic Mouth: Normal oral and palatal mucosa present Eyes EOM: EOMs intact bilaterally Neck Neck: Yes supple Resp Auscultation: clear to auscultation bilaterally Cardio Jugular venous distension: no JVD Rate: regular rate GI Palpation (GI): Soft to palpation Auscultation: normal bowel sounds General: Yes no CVA tenderness Back/Spine/Pelvis Back: no CVA tenderness Skin General skin exam: no rashes or lesions noted Neuro General: patient oriented x3 and moves all extremities Extrem General: Yes no pedal edema Assessment & Plan Assessment & Plan (1) CKD (chronic kidney disease) stage 3, GFR 30-59 ml/min: Code(s): N18.30 - Chronic kidney disease, stage 3 unspecified Qualifiers: Chronic kidney disease stage 3 subtype: stage 3a (GFR 45-59) Qualified Code(s): N18.31 - Chronic kidney disease, stage 3a (2) HTN (hypertension): Code(s): I10 - Essential (primary) hypertension Qualifiers: Hypertension type: essential hypertension Qualified Code(s): I10 - Essential (primary) hypertension Plan Anthony has CKD stage 3 B. He is not on any DUSTIN inhibitor, ARB, Farxiga or Jardiance. His blood pressure has been at goal. He is continuing with his cardiac rehab. He closely follows up with his infectious disease MD for his HIV management. I have not seen any recent blood work for him. I ordered his renal functions for close monitoring and continued management. I did not make any medication changes today but discussed to make further changes at the next visit pending evolving data. I answered all questions. Follow-up appointment given. Orders: Orders Blood Urea Nitrogen 07/20/23 I25.708 - Atherosclerosis of coronary artery bypass graft(s), unspecified, with other forms of angina pectoris, N18.30 - Chronic kidney disease, stage 3 unspecified Calcium 07/20/23 I25.708 - Atherosclerosis of coronary artery bypass graft(s), unspecified, with other forms of angina pectoris, N18.30 - Chronic kidney disease, stage 3 unspecified Protein Creatinine Ratio, Ur 07/20/23 I25.708 - Atherosclerosis of coronary artery bypass graft(s), unspecified, with other forms of angina pectoris, N18.30 - Chronic kidney disease, stage 3 unspecified Creatinine 07/20/23 N18.30 - Chronic kidney disease, stage 3 unspecified Electrolytes 07/20/23 I25.708 - Atherosclerosis of coronary artery bypass graft(s), unspecified, with other forms of angina pectoris, N18.30 - Chronic kidney disease, stage 3 unspecified Complete Blood Count Auto Diff 07/20/23 I25.708 - Atherosclerosis of coronary artery bypass graft(s), unspecified, with other forms of angina pectoris, N18.30 - Chronic kidney disease, stage 3 unspecified Coding Level of Care Code Est Pt Level 4 (14080) Diagnoses Stage 3a chronic kidney disease N18.31 Chronic kidney disease stage 3 subtype: stage 3a (GFR 45-59) Essential hypertension I10 Hypertension type: essential hypertension Results Reviewed Nephrology Results: Hgb 11.0 g/dl (14.0-18.0) L 10/13/22 WBC 6.2 X10*3/uL (4.8-10.8) 10/13/22 Plt Count 206 X10*3/uL (160-400) 10/13/22 Sodium 140 mmol/L (135-145) 10/13/22 Potassium 3.7 mmol/L (3.3-5.1) 10/13/22 Chloride 101 mmol/L (96-108) 10/13/22 Carbon Dioxide 30 mmol/L (22-29) H 10/13/22 BUN 19 mg/dL (9-16) H 10/13/22 Creatinine 1.89 mg/dL (0.5-1.4) H 10/13/22 Calcium 9.3 mg/dL (8.4-10.2) 10/13/22 Urine Creatinine 278.20 mg/dL 10/13/22
== END 2023-07-20 11:49 | disposition home or self-care (01) ==
PROVIDERS: PCP Physician Assistant; Visit Provider Internal Medicine Nephrology
DX: N18.31 Chronic kidney disease, stage 3a (principal); I10 Essential (primary) hypertension
CPT/HCPCS: 99214

== ENCOUNTER → 2023-07-20 10:50 | Outpatient (BNVA) | payer OTHER, SELFPAY | PROVIDERS: PCP Physician Assistant; Visit Provider Internal Medicine Nephrology | DX: I12.9 Hypertensive chronic kidney disease with stage 1 through stage 4 chronic kidney disease, or unspecified chronic kidney disease (principal); N18.31 Chronic kidney disease, stage 3a | CPT/HCPCS: 99212 ==

== ENCOUNTER 2023-11-09 09:49 | Outpatient (REF) | payer OTHER, SELFPAY ==
[2023-11-09 10:00] LABS: MANUAL DIFF FLAG NO
[2023-11-09 10:45] LABS: Basophils Percent Auto 0.5 % (0-2); Eosinophils Absolute Auto 0.2 X10*3/uL (0.0-0.4); Eosinophils Percent Auto 2.4 % (0-4); Hematocrit 37.6 % (42.0-52.0); Hemoglobin 12.6 g/dl (14.0-18.0); Imm Gran Abs Auto 0.02 X10*3/uL (0.00-0.03); Imm Gran Pct Auto 0.3 % (0.0-0.4); Lymphocytes Absolute Auto 2.1 X10*3/uL (1.2-4.9); Lymphocytes Percent Auto 33.2 % (20-40); Mean Corpuscular HGB Conc 33.5 g/dl (31.0-36.0); Mean Corpuscular Hemoglobin 34.1 pg (27.0-33.0); Mean Corpuscular Volume 101.9 fL (80.0-98.0); Mean Platelet Volume 10.4 fL (9.4-12.4); Monocytes Absolute Auto 0.5 X10*3/uL (0.1-1.2); Monocytes Percent Auto 8.2 % (2-11); Neutrophils Absolute Auto 3.4 x10*3/uL (2.0-8.3); Neutrophils Percent Auto 55.4 % (45-73); Platelet Count 207 X10*3/uL (160-400); Red Blood Count 3.69 X10*6/uL (4.60-5.80); Red Cell Distribution Width 12.6 % (11.0-16.0); White Blood Count 6.2 X10*3/uL (4.8-10.8)
[2023-11-09 11:30] LABS: Anion Gap 9 (12-20); Blood Urea Nitrogen 21 mg/dL (9-16); Carbon Dioxide 30 mmol/L (22-29); Chloride 106 mmol/L (96-108); Estimated Glomerular Filt Rate 54; Potassium 3.7 mmol/L (3.3-5.1); Sodium 141 mmol/L (135-145)
[2023-11-09 11:44] LABS: Creatinine Urine 177.34 mg/dL; Protein/Creatinine Ratio, Ur 0.08 (<0.2); Total Protein Urine Random 14 mg/dL (<12)
== END 2023-11-09 09:50 | disposition home or self-care (01) ==
LOC: HO.LAB 09:49
PROVIDERS: PCP Physician Assistant; Visit Provider Internal Medicine Nephrology
DX: N18.31 Chronic kidney disease, stage 3a (principal); I25.708 Atherosclerosis of coronary artery bypass graft(s), unspecified, with other forms of angina pectoris
CPT/HCPCS: 36415; 80051; 82310; 82565; 82570; 84156; 84520; 85025

== ENCOUNTER 2024-01-11 14:03 | Outpatient (AMB) | payer OTHER, SELFPAY ==
--- NOTE | 2024-01-11 14:06 | HO.NEPHOV ---
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 Accompanied by: Self / Same As Patient Allergies baclofen [BACLOFEN] Allergy (Unknown, Verified 01/11/24 14:09) SWOLLEN LEGS lithium [LITHIUM] Allergy (Unknown, Verified 01/11/24 14:09) ALMOST , body shuts down methadone [METHADONE] Allergy (Unknown, Verified 01/11/24 14:09) HIVES, swelling topiramate [From TOPAMAX] Allergy (Unknown, Verified 01/11/24 14:09) FAINT Amitryptiline Allergy (Unknown, Uncoded 07/06/23 09:33) sleepiness propranolol Allergy (Unknown, Uncoded 07/06/23 09:33) dizziness HPI Comments Details: I had the privilege of seeing Anthony in follow-up of his chronic kidney disease. He has HIV and is on anti-retroviral medications. As per the patient he his CD4 count is good and his viral load is undetectable. He had been on lithium in the past. He is hypertensive and is on blood pressure lowering medications which is keeping his blood pressure at goal he denies being diabetic but takes nonsteroidal anti-inflammatory medications as on a needed basis. He had a coronary event needing stenting in 2022. Ever since he has gone through significant lifestyle modifications and has lost a lot of weight. He denies any chest pain, shortness of breath, proximal nocturnal dyspnea, orthopnea, pedal edema or any vascular symptoms. He continues to attend cardiac rehabilitation program. 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 Disc degeneration, lumbar Spinal stenosis at L4-L5 level Fibromyalgia Asymptomatic HIV infection Left lumbar radiculopathy Chronic colitis Urinary frequency Depression PTSD (post-traumatic stress disorder) Overweight Hypothyroid HTN (hypertension) Renal insufficiency Affective bipolar disorder Asthma HIV (human immunodeficiency virus infection) Surgical History H/O heart artery stent History of colonoscopy Family History Father History of cirrhosis Mother History of high blood pressure History of diabetes mellitus History of asthma Social History Housing: Apartment Alcohol intake: never Patient Tobacco Use Status: Never used Tobacco e-Cigarette/Vaping Use: Never Used Second Hand Smoke Exposure: Yes service: No Current occupational status: disabled Cognitive needs: Yes (walker, cane, wheel chair) Hearing needs: No Vision needs: No Physical Exam Vital Signs: Last Vital Signs Pulse 61 01/11/24 14:07 BP 130/76 01/11/24 14:07 Pulse Ox 98 01/11/24 14:07 Oxygen Delivery Method Room Air 01/11/24 14:07 BMI result Body Mass Index 27.5 Const General: comfortable and no acute distress Orientation/consciousness: patient oriented x3 HEENT Head: Yes normocephalic Mouth: Normal oral and palatal mucosa present Eyes EOM: EOMs intact bilaterally Neck Neck: Yes supple Resp Auscultation: clear to auscultation bilaterally Cardio Jugular venous distension: no JVD Rate: regular rate GI Palpation (GI): Soft to palpation Auscultation: normal bowel sounds General: Yes no CVA tenderness Back/Spine/Pelvis Back: no CVA tenderness Skin General skin exam: no rashes or lesions noted Neuro General: patient oriented x3 and moves all extremities Extrem General: Yes no pedal edema Results Reviewed Nephrology Results: Hgb 12.6 g/dl (14.0-18.0) L 11/09/23 WBC 6.2 X10*3/uL (4.8-10.8) 11/09/23 Plt Count 207 X10*3/uL (160-400) 11/09/23 Sodium 141 mmol/L (135-145) 11/09/23 Potassium 3.7 mmol/L (3.3-5.1) 11/09/23 Chloride 106 mmol/L (96-108) 11/09/23 Carbon Dioxide 30 mmol/L (22-29) H 11/09/23 BUN 21 mg/dL (9-16) H 11/09/23 Creatinine 1.35 mg/dL (0.5-1.4) 11/09/23 Calcium 9.0 mg/dL (8.4-10.2) 11/09/23 Urine Creatinine 177.34 mg/dL 11/09/23 Protein/Creatinin Ratio 0.08 (<0.2) 11/09/23 Assessment & Plan Assessment & Plan (1) CKD (chronic kidney disease) stage 3, GFR 30-59 ml/min: Code(s): N18.30 - Chronic kidney disease, stage 3 unspecified Category: Medical Qualifiers: Chronic kidney disease stage 3 subtype: stage 3a (GFR 45-59) Qualified Code(s): N18.31 - Chronic kidney disease, stage 3a (2) HTN (hypertension): Code(s): I10 - Essential (primary) hypertension Category: Medical Qualifiers: Hypertension type: essential hypertension Qualified Code(s): I10 - Essential (primary) hypertension Plan Anthony has CKD stage 3 B. He is on any DUSTIN inhibitor. He is not on Farxiga or Jardiance. His blood pressure has been at goal. He closely follows up with his infectious disease MD for his HIV management. His renal function is stable. He did not have any proteinuria. I did not make any medication changes today but discussed to make further changes at the next visit pending evolving data. I answered all questions. Follow-up appointment given. Coding Level of Care Code Est Pt Level 4 (46212) Diagnoses Stage 3a chronic kidney disease N18.31 Chronic kidney disease stage 3 subtype: stage 3a (GFR 45-59) Essential hypertension I10 Hypertension type: essential hypertension
[2024-01-11 14:07] VITALS: BP 130/76; PULSE 61; O2SAT 98; BMI 27.5
== END 2024-01-11 14:29 | disposition home or self-care (01) ==
LOC: HO.HKA 14:03
PROVIDERS: PCP Physician Assistant; Visit Provider Internal Medicine Nephrology
DX: N18.31 Chronic kidney disease, stage 3a (principal); I10 Essential (primary) hypertension
CPT/HCPCS: 99214

== ENCOUNTER → 2024-01-11 14:03 | Outpatient (BNVA) | payer OTHER, SELFPAY | PROVIDERS: PCP Physician Assistant; Visit Provider Internal Medicine Nephrology | DX: I12.9 Hypertensive chronic kidney disease with stage 1 through stage 4 chronic kidney disease, or unspecified chronic kidney disease (principal); N18.31 Chronic kidney disease, stage 3a | CPT/HCPCS: 99212 ==

== ENCOUNTER 2024-03-14 10:45 | Outpatient (AMB) | payer OTHER, SELFPAY ==
[2024-03-14 10:51] VITALS: BP 190/110; PULSE 70; O2SAT 98; BMI 29.8
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
== END 2024-03-14 11:28 | disposition home or self-care (01) ==
PROVIDERS: PCP Physician Assistant; Visit Provider Physician Assistant
DX: I12.9 Hypertensive chronic kidney disease with stage 1 through stage 4 chronic kidney disease, or unspecified chronic kidney disease (principal); F33.1 Major depressive disorder, recurrent, moderate; Z21 Asymptomatic human immunodeficiency virus [HIV] infection status; N18.31 Chronic kidney disease, stage 3a; I25.708 Atherosclerosis of coronary artery bypass graft(s), unspecified, with other forms of angina pectoris; M79.7 Fibromyalgia; E03.9 Hypothyroidism, unspecified

== ENCOUNTER → 2024-03-14 10:45 | Outpatient (BNVA) | payer OTHER, SELFPAY | PROVIDERS: PCP Physician Assistant; Visit Provider Physician Assistant | DX: F33.1 Major depressive disorder, recurrent, moderate (principal); M79.7 Fibromyalgia; Z21 Asymptomatic human immunodeficiency virus [HIV] infection status; I12.9 Hypertensive chronic kidney disease with stage 1 through stage 4 chronic kidney disease, or unspecified chronic kidney disease; N18.31 Chronic kidney disease, stage 3a; I25.708 Atherosclerosis of coronary artery bypass graft(s), unspecified, with other forms of angina pectoris; E03.9 Hypothyroidism, unspecified | CPT/HCPCS: 96127; 99212 ==

== ENCOUNTER 2024-05-29 15:41 | Outpatient (REF) | payer OTHER, SELFPAY ==
--- NOTE | ~2024-05-29 | US_ITS ---
EXAMINATION: US TRIPLEX LOWER EXTREMITY, LEFT CLINICAL INFORMATION: EXTREMITY EDEMA COMPARISON: 01/12/2017 TECHNIQUE: Color-flow triplex imaging with spectral analysis and compression Doppler were performed on the left lower extremity. FINDINGS: Respiratory variation, normal compression and augmented flow are noted throughout the left lower extremity. The visualized common femoral vein, superficial femoral vein, profunda femoral vein, popliteal vein and midcalf peroneal and posterior tibial venous segments show no evidence of deep venous thrombosis. Villegas's cyst in the popliteal fossa measuring 1.1 x 3.9 x 0.8 cm US/US venous duplex LE LT IMPRESSION: No evidence of deep venous thrombosis involving the left lower extremity. Villegas's cyst Electronically signed by: Roderick Lai MD 05/29/2024 04:37 PM EST RP
== END 2024-05-29 15:42 | disposition home or self-care (01) ==
LOC: HO.US 15:41
PROVIDERS: PCP Physician Assistant; Visit Provider Physician Assistant
DX: R60.0 Localized edema (principal)
CPT/HCPCS: 93971

== ENCOUNTER 2024-12-31 09:39 | Outpatient (AMB) | payer OTHER, SELFPAY ==
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
[2024-12-31 09:46] VITALS: BP 140/78; PULSE 66; TEMP 36.2; O2SAT 96; BMI 29.5
--- OUTSIDE RECORDS SUMMARY | 2024-12-31 10:15 | XMS_ITS | Clinical Summary ---
Author Organization [facility] Address [address] [place] [address] Phone Care Team Providers Care Market Developer Name Role Phone Joni Ferreira Primary Care Provider Allergies Active Allergy Reactions Criticality Noted Date Comments Amitriptyline 11/09/2024 Baclofen Other 04/24/2018 Swelling of legs [place] Other 04/24/2018 No reactions documented Methadone Other 04/24/2018 Shaky/ sweats Other Reaction(s): shaky, sweats methadone Morphine Diarrhea High 04/24/2018 .no reaction documented Perphenazine Other 11/09/2024 Propranolol Other 07/11/2018 Fainted twice while on the med Topiramate 11/09/2024 Medications No known medications Active Problems No known active problems Encounters Date Type Department Care Team Description 12/20/2024 7:59 AM EDT - 12/20/2024 11:59 PM EDT Hospital Encounter [facility] Ortho Xray [address] [place] [address] Discharge Disposition: Home or Self Care 12/04/2024 11:15 AM EDT - 12/04/2024 4:20 PM EDT Emergency [facility] Emergency [address] [place] [phone] Closed fracture of right tibia and fibula, initial encounter (Primary Dx); Hematoma Discharge Disposition: Home or Self Care 11/22/2024 8:06 AM EDT - 11/22/2024 11:59 PM EDT Hospital Encounter [facility] Ortho Xray [address] [place] [address] Pain Discharge Disposition: Home or Self Care 11/20/2024 11:37 AM EDT - 11/20/2024 1:01 PM EDT Emergency [facility] Emergency [address] [place] [address] Encounter for repeat administration of rabies vaccination (Primary Dx) Discharge Disposition: Home or Self Care 11/13/2024 10:55 AM EDT - 11/13/2024 11:50 AM EDT Emergency [facility] Emergency [address] [place] [address] Need for prophylactic vaccination against rabies (Primary Dx) Discharge Disposition: Home or Self Care 11/12/2024 8:38 AM EDT - 11/12/2024 11:59 PM EDT Hospital Encounter [facility] Ortho Xray [address] [place] [address] Pain Discharge Disposition: Home or Self Care 11/12/2024 7:42 AM EDT - 11/12/2024 11:59 PM EDT Hospital Encounter [facility] Ortho Xray [address] [place] [address] Pain Discharge Disposition: Home or Self Care 11/09/2024 10:47 AM EDT - 11/09/2024 11:03 AM EDT Emergency [facility] Emergency [address] [place] [address] Encounter for repeat administration of rabies vaccination (Primary Dx) Discharge Disposition: Home or Self Care 11/06/2024 8:13 PM EDT - 11/07/2024 12:37 AM EDT Emergency [facility] Emergency [address] [place] [phone] Bi Crooks MD Lacerations of multiple sites of left arm, initial encounter (Primary Dx); Laceration of multiple sites of right upper extremity, initial encounter; Dog bite, initial encounter; Closed displaced pilon fracture of right tibia, initial encounter Discharge Disposition: Home or Self Care from Last 3 Months Immunizations Name Administration Dates Next Due Human Rabies, Chicken Fibrob last Cell Culture, ([place]aba[place]) 11/20/2024,11/13/2024,11/09/2024, 025 Medical History Medical History Date Comments Human immunodeficiency virus (HIV) disease ([facility] V24, [facility] V28) 04/24/2018 DX:Human immunodefi ciency virus (HIV) disease ([facility]) Anxiety 04/24/2018 DX:Anxiety Bipolar disorder ([facility] V2 4, [facility] V28) 04/24/2018 DX:Bipolar disorder ([facility]) History of Graves' disease 04/24/2018 DX:Hi story of Graves' disease CKD (chronic kidney disease) stage 3, GFR 30-59 ml/min ([facility] V24, [facility] V28) 04/24/2018 DX:CKD (chronic kidney disea se) stage 3, GFR 30-59 ml/min ([facility]) HTN (hypertension) 04/24/2018 DX:HTN (hyper tension) GERD (gastroesophageal reflu x disease) 04/24/2018 DX:GERD (gastroesophageal re flux disease) Depression 04/24/2018 DX:Depression PTSD (post-traumatic stress disorder) 04/24/2018 DX:PTSD (post-traumatic stress disorder) Chronic low back pain 04/24/2018 DX:Chronic low back pain Migraine 04/24/2018 DX:Migraine Family History Medical History Relation Name Comments Cirrhosis Father Depression Mother MARZENA disease Mother Heart failure Mother Hypertension Mother Other: Diabetes (aka DM) Mother Other: hypothyroidism Mother Diabetes Other nephew Relation Name Status Comments Father (Age 44) Mother Other nephew Alive Social History Tobacco Use Types Packs/Day Years Used Date Smoking Tobacco: Former Cigarettes Smokeless Tobacco: Never Tobacco Cessation:Counseling Given: Not Answered Alcohol Use Standard Drinks/Week Comments Yes 0 (1 standard drink = 0.6 oz pur e alcohol) Sex and Gender Information Value Date Recorded Sex Assigned at Male 11/06/2024 10:32 PM EDT Legal Sex Male 8:27 AM EST Gender Identity Male 11/06/2024 10:32 PM EDT Sexual Orientation Straight 11/06/2024 10 :32 PM EDT Obstetrics History Last Filed Vital Signs Vital Sign Reading Time Taken Comments Blood Pressure 158/92 12/04/2024 1:46 PM EDT Pulse 63 12/04/2024 1:46 PM EDT Temperature 36.7 C (98.1 F) 12/04/2024 7:10 AM EDT Respiratory Rate 18 12/04/2024 1:46 PM EDT Oxygen Saturation 97% 12/04/2024 1:46 PM EDT Inhaled Oxygen Concentration - - Weight 104 kg (230 lb) 12/04/2024 7:10 AM EDT Height 188 cm (6' 2 ) 12/04/2024 7:10 AM EDT Body Mass Index 29.53 12/04/2024 7:10 AM EDT Plan of Treatment Health Maintenance Due Date Last Done Comments Meningococcal ACWY Vaccine (1 - Risk 2-dose series) 1962 MMR Vaccines (1 of 2 - Risk 2-dose series) 1979 Hepatitis A Vaccines (3 of 3 - Hep A Twinrix risk 3-dose series) 04/29/2014 11/27/2013, 08/23/2013 Hepatitis B Vaccines (3 of 3 - Hep B Twinrix risk 3-dose series) 04/29/2014 11/27/2013, 08/23/2013 COVID-19 Vaccine (3 - Pfizer risk series) 10/17/2020 09/19/2020, 07/31/2020 RSV Immunization Adult Patients (1 - Risk 60-74 years 1-dose series) 2021 Pneumococcal Vaccine: 50+ Years (4 of 4 - PCV20 or PCV21) 02/24/2022 02/24/2017, 02/19/2015, 02/09/2012 Depression Screening 06/13/2024 Cholesterol Screening (Lipid Panel) 11/07/2024 Colorectal Cancer Screening: Colonoscopy 11/07/2024 Hepatitis C Screening 11/07/2024 Medicare Annual Wellness Visit 11/07/2024 Social Influencers of Health Screening 11/07/2024 Influenza Vaccine (#1) 2025 , 03/24/2022, 04/13/2021, Additional history exists Hypertension/CHF/CAD Annual BMP Blood Test 11/06/2025 11/06/2024 DTaP,Tdap,and Td Vaccines (5 - Td or Tdap) 11/04/2034 11/04/2024, 04/29/2020, 11/04/2011, Additional history exists Zoster Vaccines Completed 12/08/2020, 04/29/2020 HIB Vaccines Aged Out No longer eligi ble based on patient's age to complete this topic HPV Vaccines Aged Out No longer eligi ble based on patient's age to complete this topic IPV Vaccines Aged Out No longer eligi ble based on patient's age to complete this topic Meningococcal B Vaccine Aged Out No l onger eligible based on patient's age to complete this topic RSV Immunization Patients Under 20 months Aged Out No longer eligible based on patient's age to complete this topic Varicella Vaccines Aged Out No longer eligible based on patient's age to complete this topic Procedures Procedure Name Priority Date/Time Associated Diagnosis Comments XR TIBIA FIBULA 2 VIEWS RIGHT Routine 12/20/2024 8:10 AM EDT Pain XR TIBIA FIBULA 2 VIEWS RIGHT STAT 12/04/2024 1:39 PM EDT XR ANKLE 3+ VIEWS RIGHT STAT 12/04/2024 1:39 PM EDT VAS US DUPLEX LOWER EXT VENOUS RIGHT Routine 12/04/2024 12:54 PM EDT Closed fracture of right tibia and fibula, initial encounter XR ANKLE 3+ VIEWS RIGHT Routine 11/22/2024 8:12 AM EDT Pain XR ANKLE 3+ VIEWS RIGHT Routine 11/12/2024 8:49 AM EDT Pain XR TIBIA FIBULA 2 VIEWS RIGHT Routine 11/12/2024 8:20 AM EDT Pain XR FOREARM 2 VIEWS LEFT STAT 11/06/2024 11:[address] LOWER EXTREMITY WO CONTRAST RIGHT STAT 11/06/2024 10:55 PM EDT CBC WITH AUTO DIFFERENTIAL STAT 11/06/2024 6:09 PM EDT BASIC METABOLIC PANEL STAT 11/06/2024 6:09 PM EDT CBC AND DIFFERENTIAL STAT 11/06/2024 6:09 PM EDT from Last 3 Months Results * XR Tibia Fibula 2 Views Right (12/20/2024 8:10 AM EDT) Only the most recent of3 resultswithin the time period is included. Narrative RIS PACS/VR - 12/20/2024 8:10 AM EDT This order has been auto-finalized and does not contain a result. us Bakari Santos MD IMG XR PROCEDURES Final Result RIS PACS/VR * XR Ankle 3+ Views Right (12/04/2024 1:39 PM EDT) Only the most recent of3 resultswithin the time period is included. Anatomical Region Laterality Modality Lower Extremities, Ankle Right Radiogr aphic Imaging 12/04/2024 1:57 PM EDT Impressions 12/04/2024 1:59 PM EDT FINDINGS/IMPRESSION: Comminuted fracture of the distal tibia. Degenerative changes of the ankle. Smooth talar dome. -------- FINAL REPORT -------- Dictated By: Lesly Morales Dictated Date: 12/04/2024 13:57 ET Assigned Physician: Lesly Morales Reviewed and Electronically Signed By: Lesly Morales Signed Date: 12/04/2024 13:59 ET Workstation ID: [id number] Transcribed By: Self Edit Transcribed Date: 12/04/2024 13:57 ET Narrative 12/04/2024 1:59 PM EDT XR ANKLE 3+ VIEWS RIGHT INDICATION: pain TECHNIQUE: XR ANKLE 3+ VIEWS RIGHT COMPARISON: No priors available. Procedure Note Lesly Morales MD - 12/04/2024 XR ANKLE 3+ VIEWS RIGHT INDICATION: pain TECHNIQUE: XR ANKLE 3+ VIEWS RIGHT COMPARISON: No priors available. IMPRESSION: FINDINGS/IMPRESSION: Comminuted fracture of the distal tibia.Degenerative changes of the ankle. Smooth talar dome. -------- FINAL REPORT -------- Dictated By: Lesly Morales Dictated Date: 12/04/2024 13:57 ET Assigned Physician: Lesly Morales Reviewed and Electronically Signed By: Lesly Morales Signed Date: 12/04/2024 13:59 ET Workstation ID: [id number] Transcribed By: Self Edit Transcribed Date: 12/04/2024 13:57 ET us Dayanna BARRON IMG XR PROCEDURES Final Result * Vascular US duplex lower extremity venous right (12/04/2024 12:54 PM EDT) Anatomical Region Laterality Modality Vascular, Abdomen Ultrasound 12/04/2024 12:5 9 PM EDT Impressions 12/04/2024 12:59 PM EDT NO RIGHT LOWER EXTREMITY DEEP VENOUS THROMBOSIS. -------- FINAL REPORT -------- Dictated By: Lesly Morales Dictated Date: 12/04/2024 12:59 ET Assigned Physician: Lesly Morales Reviewed and Electronically Signed By: Lesly Morales Signed Date: 12/04/2024 12:59 ET Workstation ID: [id number] Transcribed By: Self Edit Transcribed Date: 12/04/2024 12:59 ET Narrative 12/04/2024 12:59 PM EDT Ultrasound duplex right lower extremity. INDICATION: pain recent fracture (ortho removed cast) TECHNIQUE: 2-D and color Doppler imaging of the right lower extremity venous vasculature with compression and augmentation maneuvers. COMPARISON: No priors available. FINDINGS: There is normal flow, compression, and augmentation from the common femoral through the popliteal vein. No fluid collection. Procedure Note Lesly Morales MD - 12/04/2024 Ultrasound duplex right lower extremity. INDICATION: pain recent fracture (ortho removed cast) TECHNIQUE: 2-D and color Doppler imaging of the right lower extremityvenous vasculature with compression and augmentation maneuvers. COMPARISON: No priors available. FINDINGS: There is normal flow, compression, and augmentation from the commonfemoral through the popliteal vein. No fluid collection. IMPRESSION: NO RIGHT LOWER EXTREMITY DEEP VENOUS THROMBOSIS. -------- FINAL REPORT -------- Dictated By: Lesly Morales Dictated Date: 12/04/2024 12:59 ET Assigned Physician: Lesly Morales Reviewed and Electronically Signed By: Lesly Morales Signed Date: 12/04/2024 12:59 ET Workstation ID: [id number] Transcribed By: Self Edit Transcribed Date: 12/04/2024 12:59 ET Dayanna BARRON CV VASCULAR PROCEDURES F inal Result * XR Forearm 2 Views Left (11/06/2024 11:04 PM EDT) Anatomical Region Laterality Modality Upper Extremities, Forearm Left Radio graphic Imaging 11/07/2024 8:42 AM EDT Impressions 11/07/2024 8:43 AM EDT Normal examination. Code 43818 -------- FINAL REPORT -------- Dictated By: Som Briceno Dictated Date: 11/07/2024 08:42 ET Assigned Physician: Som Briceno Reviewed and Electronically Signed By: Som Briceno Signed Date: 11/07/2024 08:43 ET Workstation ID: [id number] Transcribed By: Self Edit Transcribed Date: 11/07/2024 08:42 ET Narrative 11/07/2024 8:43 AM EDT HISTORY: The patient is a 64-year-old male with a dogbite to the right forearm. FINDINGS: AP and lateral radiographs of the right radius and ulna are obtained. The study demonstrates no fracture, dislocation, arthritic change, or other bony abnormality. No soft tissue abnormality or radiopaque foreign body is seen. Procedure Note Som rBiceno MD - 11/07/2024 HISTORY: The patient is a 64-year-old male with a dogbite to the rightforearm. FINDINGS: AP and lateral radiographs of the right radius and ulna areobtained. The study demonstrates no fracture, dislocation, arthriticchange, or other bony abnormality. No soft tissue abnormality orradiopaque foreign body is seen. IMPRESSION: Normal examination. Code 39067 -------- FINAL REPORT -------- Dictated By: Som Briceno Dictated Date: 11/07/2024 08:42 ET Assigned Physician: Som Briceno Reviewed and Electronically Signed By: Som Briceno Signed Date: 11/07/2024 08:43 ET Workstation ID: [id number] Transcribed By: Self Edit Transcribed Date: 11/07/2024 08:42 ET Bi Crooks MD IM XR PROCEDURES Final Result * CT Lower Extremity wo Contrast Right (11/06/2024 10:55 PM EDT) Anatomical Region Laterality Modality Lower Extremities Right Computed Tomog chace 11/07/2024 12:5 9 AM EDT Impressions 11/07/2024 12:59 AM EDT 1. Minimally displaced spiral fracture of the distal tibial shaft. 2. Separate medial malleolus fracture extending into the metaphysis of the tibia. This document has been electronically signed by: Giacomo Galvan MD on 11/07/2024 00:59:06 Narrative 11/07/2024 12:59 AM EDT INDICATION: Right ankle fracture dx at urgent care CT lower extremity right without contrast Comparison: None Findings: There is a spiral fracture of the distal tibial shaft with a large medial butterfly fragment which is minimally displaced. This fracture terminates in the tibial metaphysis. Slightly more inferiorly there is a separate sagittally oriented fracture through the medial malleolus extending into the medial metaphysis of the tibia. This fracture is nondisplaced. No fracture deformity of the fibula. Ankle mortise is in anatomic alignment. No fracture deformity of the visualized foot bones. Diffuse soft tissue swelling about the ankle. Procedure Note Giacomo Galvan MD - 11/07/2024 INDICATION: Right ankle fracture dx at urgent care CT lower extremity right without contrast Comparison: None Findings: There is a spiral fracture of the distal tibial shaft with a largemedial butterfly fragment which is minimally displaced. This fractureterminates in the tibial metaphysis. Slightly more inferiorly there is a separate sagittally oriented fracture through the medial malleolus extending into the medial metaphysis of the tibia. This fracture is nondisplaced. No fracture deformity of the fibula. Ankle mortise is in anatomic alignment. No fracture deformity of the visualized foot bones. Diffuse soft tissue swelling about the ankle. IMPRESSION: 1. Minimally displaced spiral fracture of the distal tibial shaft. 2. Separate medial malleolus fracture extending into the metaphysis ofthe tibia. This document has been electronically signed by: Giacomo Galvan MD on 11/07/2024 00:59:06 Bi Crooks MD IM CT PROCEDURES Final Result * (ABNORMAL) CBC auto differential (11/06/2024 6:09 PM EDT) [facility] WBC 6.0 4.8 - 10.8 K/mcL LAB HEMETOLOGY [facility] RBC 3.80(L) 4.50 - 5.50 M/mcL LAB HEMETOLOGY METHOD 11/06/2024 6:26 PM [facility] Hemoglobin 12.6(L) 13.5 - 17.5 g/dL LAB HEMETOLOGY METHOD 11/06/2024 6:26 PM [facility] Hematocrit 38.6(L) 42.0 - 54.0 % LAB HEMETOLOGY METHOD 11/06/2024 6:26 PM [facility] MCV 102.4(H) 79.0 - 98.0 FL LAB HEMETOLOGY METHOD 11/06/2024 6:26 PM [facility] MCH 33.4(H) 27.0 - 32.0 pcg LAB HEMETOLOGY METHOD 11/06/2024 6:26 PM [facility] MCHC 32.6 32.0 - 37.0 g/dL LAB HEMETOLOGY METHOD 11/06/2024 6:26 PM [facility] RDW 13.3 11.0 - 15.0 % LAB HEMETOLOGY METHOD 11/06/2024 6:26 PM [facility] Platelets 244 130 - 400 K/mcL LAB HEMETOLOGY METHOD 11/06/2024 6:26 PM [facility] MPV 10.0 7.0 - 11.0 FL LAB HEMETOLOGY METHOD 11/06/2024 6:26 PM [facility] NRBC 0.0 <1.0 % LAB HEMETOLOGY METHOD 11/06/2024 6:26 PM [facility] NRBC Absolute 0.00 <0.10 K/mcL LAB HEMETOLOGY METHOD 11/06/2024 6:26 PM [facility] Neutrophils Relative 69.0 % LAB HEMETOLOGY METHOD 11/06/2024 6:26 PM [facility] Lymphocytes Relative 21.6 % LAB HEMETOLOGY METHOD 11/06/2024 6:26 PM [facility] Monocytes Relative 7.5 % LAB HEMETOLOGY METHOD 11/06/2024 6:26 PM [facility] Eosinophils Relative 1.3 % LAB HEMETOLOGY METHOD 11/06/2024 6:26 PM [facility] Basophils Relative 0.3 % LAB HEMETOLOGY METHOD 11/06/2024 6:26 PM [facility] Immature Granulocytes Relative 0.3 % LAB HEMETOLOGY METHOD 11/06/2024 6:26 PM [facility] Neutrophils Absolute 4.11 1.50 - 7.00 K/mcL LAB HEMETOLOGY METHOD 11/06/2024 6:26 PM [facility] Lymphocytes Absolute 1.29 1.00 - 5.00 K/mcL LAB HEMETOLOGY METHOD 11/06/2024 6:26 PM [facility] Monocytes Absolute 0.45 0.20 - 1.00 K/mcL LAB HEMETOLOGY METHOD 11/06/2024 6:26 PM [facility] Eosinophils Absolute 0.08 0.00 - 0.50 K/mcL LAB HEMETOLOGY METHOD 11/06/2024 6:26 PM [facility] Basophils Absolute 0.02 0.00 - 0.20 K/mcL LAB HEMETOLOGY METHOD 11/06/2024 6:26 PM [facility] Immature Granulocytes Absolute 0.02 0.00 - 0.03 K/mcL LAB HEMETOLOGY METHOD 11/06/2024 6:26 PM EDT [facility] Blood Venous blood specimen / Unknown Venipuncture / Unknown 11/06/2024 6:09 PM EDT 11/06/2024 6:17 PM EDT us Bi Crooks MD LAB BLOOD ORDERABLES Final Res ult [facility] [address] [place] [address], [place] [phone] * (ABNORMAL) Basic metabolic panel (11/06/2024 6:09 PM EDT) Sodium 138 133 - 145 mmol/L LAB CHEMISTRY METHOD 11/06/2024 6:50 PM [facility] Potassium 3.6 3.5 - 5.5 mmol/L LAB CHEMISTRY METHOD 11/06/2024 6:50 PM [facility] Comment:Hemolysis present Chloride 104 96 - 110 mmol/L LAB CHEMISTRY METHOD 11/06/2024 6:50 PM [facility] CO2 27 21 - 32 mmol/L LAB CHEMISTRY METHOD 11/06/2024 6:50 PM [facility] Anion Gap 7 3 - 11 LAB CHEMISTRY METHOD 11/06/2024 6:50 PM [facility] Glucose 113(H) 70 - 100 mg/dL LAB CHEMISTRY METHOD 11/06/2024 6:50 PM [facility] BUN 26(H) 5 - 25 mg/dL LAB CHEMISTRY METHOD 11/06/2024 6:50 PM [facility] Creatinine 1.50(H) 0.70 - 1.30 mg/dL LAB CHEMISTRY METHOD 11/06/2024 6:50 PM [facility] eGFR 52(L) >=60 mL/min/1. 73m2 LAB CHEMISTRY METHOD 11/06/2024 6:50 PM EDT [facility] Comment:Calculation based on the Chronic Kidney Disease Epidemiology Collaboration (CKD-EPI) equation refit without adjustment for race. BUN/Creatinine Ratio 17.3 LAB CHEMISTRY METHOD 11/06/2024 6:50 PM EDT [facility] Calcium 9.2 8.5 - 10.5 mg/dL LAB CHEMISTRY METHOD 11/06/2024 6:50 PM EDT [facility] Blood Venous blood specimen / Unknown Venipuncture / Unknown 11/06/2024 6:09 PM EDT 11/06/2024 6:17 PM EDT us Bi Crooks MD LAB BLOOD ORDERABLES Final Res ult [facility] [address] [place] [address], [place] [phone] from Last 3 Months Insurance [facility] MEDIC[facility] Member Subscriber Plan / Payer (Ef fective 2021-Present) Name:CEZAR ANTHONY Relation to Subscriber:Self Name:Anthony Segura Payer ID:[id number] Group ID:[id number] Type:Not on file Address: [place] [address] [address] [id number] Care Teams Market Developer Relationship Specialty Start Date End Date Joni Ferreira PA [address] [place] [phone] PCP - General Physician Account Relationship Manager 11/06/24
--- OUTSIDE RECORDS SUMMARY | 2024-12-31 10:15 | XMS_ITS | Encounter Summary ---
Author Organization [facility] Address [address] [place] [address] Phone Care Team Providers Care Jinriksha Driver Name Role Phone Joni Ferreira Primary Care Provider Encounter Details Date Type Department Care Team (Late st Contact Info) Description 02/23/2022 Telephone [facility] [address] [place] [address] Omar Masterson MD Social History Tobacco Use Types Packs/Day Years Used Date Smoking Tobacco: Never Smokeless Tobacco: Never Alcohol Use Standard Drinks/Week Comments Yes 0 (1 standard drink = 0.6 oz pure alcohol) Alcoholic Drinks/day: Occasional social drink Sex and Gender Information Value Date Recorded Sex Assigned at Not on file Legal Sex Male 4:49 PM EST Gender Identity Not on file Sexual Orientation Not on file documented as of this encounter Miscellaneous Notes * Telephone Encounter - Gemini Segura - 02/23/2022 9:03 AM EDT Pt called, he just spent the last 24 hours at [facility] ER and they told him his kidneys aren't doing well. He is already scheduled for an appointment on 03/11/22 but if he needs to be seen sooner please call him back at [phone] Thank you documented in this encounter Plan of Treatment Not on file documented as of this encounter Visit Diagnoses Not on filedocumented in this encounter Care Teams Jinriksha Driver Relationship Specialty Start Date End Date Joni Ferreira PA [address] [place] [address], [address] [place] [address] PCP - General Physician Sleep Lab Technologist 09/03/21 documented as of this encounter
--- OUTSIDE RECORDS SUMMARY | 2024-12-31 10:15 | XMS_ITS | Data Portability ---
Author Organization [employer] [facility], [facility] Address [address] [place] [address] Care Team Providers Care Marketing Administrative Assistant Name Role Phone [facility] PRIMARY [facility] Referring Provider Assessment Encounter Date Assessment Date Assessment LastModified by Organization Details LastModified Time 09/13/2022 09/13/2022 This 62-year-old male with advanced renal disease has had a sore left ankle for several days with no history of trauma. He has taken Motrin and Tylenol with minimal improvement. He has an appointment with his PCP in two days. He is not a candidate for Toradol due to his renal problems. I recommended limiting his activity until he sees his PCP. The patient agreed with this plan. Not available 09/13/2022 16:47:07 Plan of Treatment Reminders Order Date Submit Date Provider Last Modified By Organization Details Last Modified Time Details Appointments None record ed. Lab None record ed. Referral None record ed. Procedures None record ed. Surgeries None record ed. Imaging None record ed. Medication Orders None record ed. Patient TargetsNo targets recorded. Patient InstructionsNo instructions recorded. Reason for Referral None Reported. Medical Equipment None Reported. Medications Name Sig Start Date Stop Date Status Note LastModified by Organization Details LastModified Time cyclobenzapr ine 10 mg tablet TAKE 1 TABLET BY MOUTH EVERY 8 HOURS active Not Available Not Available No t Available ibuprofen 800 mg tablet TAKE 1 TABLET BY MOUTH THREE TIMES A DAY NEEDED FOR PAIN FOR 30 DAYS active Not Available Not Available Not Available alprazolam 1 mg tablet TAKE 1 TABLET BY MOUTH FOUR TIMES A DAY NEEDED active Not Available Not Available No t Available tizanidine 4 mg tablet TAKE 1 TABLET BY MOUTH THREE TIMES A DAY NEEDED FOR MUSCLE SPASTICITY active Not Available Not Available N ot Available acetaminophe n 500 mg tablet TAKE 2 TABLETS BY MOUTH 4 TIMES A DAY NEEDED FOR PAIN AND FEVER active Not Available Not Available No t Available acetaminophe n ER 650 mg tablet,exten ded release TAKE 1 TABLET BY MOUTH EVERY 6 HOURS active Not Available Not Available No t Available famotidine 20 mg tablet TAKE 1 TABLET BY MOUTH AT BEDTIME active Not Available Not Available No t Available gabapentin 800 mg tablet TAKE 1 TABLET BY MOUTH THREE TIMES A DAY active Not Available Not Available Not Available amlodipine 10 mg tablet TAKE 1 TABLET BY MOUTH ONCE DAILY active Not Available Not Available No t Available promethazine 25 mg tablet TAKE 1 TABLET BY MOUTH DAILY NEEDED FOR NAUSEA active Not Available Not Available N ot Available Banophen 25 mg capsule TAKE 1 CAPSULE BY MOUTH EVERY 12 HOURS active Not Available Not Available No t Available oxcarbazepin e 600 mg tablet TAKE 2 TABLETS BY MOUTH TWICE A DAY active Not Available Not Available No t Available lisinopril 10 mg-hydrochlo rothiazide 12.5 mg tablet TAKE 1 TABLET BY MOUTH EVERY DAY active Not Available Not Available No t Available zolpidem 10 mg tablet TAKE 1 TABLET BY MOUTH EVERYDAY AT BEDTIME active Not Available Not Available No t Available albuterol sulfate HFA 90 mcg/actuatio n aerosol inhaler INHALE 2 PUFFS BY MOUTH EVERY 6 HOURS NEEDED FOR WHEEZING active Not Available Not Available No t Available fluticasone propionate 50 mcg/actuatio n nasal spray,suspen zhen INHALE 2 SPRAYS INTRANASALL Y EVERY DAY active Not Available Not Available Not Available Vitamin D3 25 mcg (1,000 unit) tablet TAKE 1 TABLET BY MOUTH EVERY DAY active Not Available Not Available No t Available duloxetine 20 mg capsule,adrienne yed release TAKE 2 CAPSULES BY MOUTH EVERY MORNING AND TAKE 2 CAPSULES EVERY EVENING active Not Available Not Available No t Available buprenorphin e 8 mg-naloxone 2 mg sublingual film DISSOLVE 1 FILM STRIP 3 TIMES A DAY active Not Available Not Available No t Available Belbuca 900 mcg buccal film APPLY 1 FILM TO INSIDE OF MOUTH (BUCCAL) EVERY TWELVE HOURS active Not Available Not Available No t Available Odefsey 200 mg-25 mg-25 mg tablet TAKE 1 TABLET BY MOUTH EVERY DAY active Not Available Not Available No t Available Flowflex COVID-19 Antigen Home Test kit active Not Available Not Available Not Available Vitals None Recorded Social History None recorded. Functional Status None recorded. Mental Status None recorded. Family History Nothing Reported. Medical History No medical history recorded. Past Encounters Encounter ID Performer Location Encounter Start Date Encounter Closed Date Diagnosis/Indication Diagnosis SNOMED-CT Code Diagnosis ICD10 Code Diagnosis Note [id number] Jeferson Mccray MD [facility] [place] [address] [place] [phone] 09/13/2022 16:42:13 09/13/2022 16:47:23 Health Concerns Section Related Observation LastModified by Organization Detai ls LastModified Time None Recorded Concern Status LastModified by Organization Details LastModified Time None Recorded Advance Directives Directive None Recorded Payers Insurance Date Sequence Insurance Name Policy Number Policy Guajardo Covered Member ID Guajardo Member ID Guarantor Name 10/12/2024 1 [facility] - DOS PRIOR TO 2022 - DUAL ELIGIBLE (MEDICARE REPLACEMENT/ADV ANTAGE - HMO) Anthony Segura [id number] Anthony Segura 10/12/2024 1 [facility] - DOS ON OR AFTER 2022 - DUAL ELIGIBLE - [facility] OPT[employer] AND ONE CARE (MEDICARE REPLACEMENT/ADV ANTAGE - HMO) Anthony Segura [id number] Anthony Segura Notes Date Note Type Note Provider Name and Address Organization Details Recorded Time 09/13/2022 text/html [facility] Nursing Assessment: Chief Complaints: Pain, Edema PMH: Other Allergies: Unknown Comments: Member reports increased swelling to left ankle since last night. bruising noted to outer aspect of left ankle. No falls or injuries. Minimal pain today. Elevated leg last evening with reduction of swelling today. Has appt with PCP in 2 days but would like evaluation of LLE by [facility] team today Jeferson Mccray MD [address] [place] [address],[address], [place], [address], [employer] 09/13/2022 16:47:21
== END 2024-12-31 10:48 | disposition home or self-care (01) ==
LOC: HO.HMCH 09:39
PROVIDERS: PCP Physician Assistant; Visit Provider Physician Assistant
DX: I12.9 Hypertensive chronic kidney disease with stage 1 through stage 4 chronic kidney disease, or unspecified chronic kidney disease (principal); F33.1 Major depressive disorder, recurrent, moderate; Z21 Asymptomatic human immunodeficiency virus [HIV] infection status; N18.31 Chronic kidney disease, stage 3a; M79.7 Fibromyalgia; I25.708 Atherosclerosis of coronary artery bypass graft(s), unspecified, with other forms of angina pectoris; E03.9 Hypothyroidism, unspecified

== ENCOUNTER → 2024-12-31 09:39 | Outpatient (BNVA) | payer OTHER, SELFPAY | PROVIDERS: PCP Physician Assistant; Visit Provider Physician Assistant | DX: F33.1 Major depressive disorder, recurrent, moderate (principal); M79.7 Fibromyalgia; I12.9 Hypertensive chronic kidney disease with stage 1 through stage 4 chronic kidney disease, or unspecified chronic kidney disease; N18.31 Chronic kidney disease, stage 3a; I25.708 Atherosclerosis of coronary artery bypass graft(s), unspecified, with other forms of angina pectoris; E03.9 Hypothyroidism, unspecified; R39.81 Functional urinary incontinence; J30.89 Other allergic rhinitis; J45.20 Mild intermittent asthma, uncomplicated; K21.9 Gastro-esophageal reflux disease without esophagitis; Z21 Asymptomatic human immunodeficiency virus [HIV] infection status | CPT/HCPCS: 96127; 99212 ==

== ENCOUNTER 2025-02-25 10:23 | Outpatient (AMB) | payer OTHER, SELFPAY ==
--- OUTSIDE RECORDS SUMMARY | 2025-02-25 07:51 | XMS_ITS | Encounter Summary ---
Author Organization [facility] [place] [facility] [place] [address] Care Team Providers Care Fiber Optic Technician Name Role Phone Joni Ferreira Primary Care Provider Encounter Details Date Type Department Care Team (Late st Contact Info) Description 02/25/2025 7:51 AM EDT Hospital Encounter [facility] Orth[facility] Xray [address] [place] [address] Pain Social History Tobacco Use Types Packs/Day Years Used Date Smoking Tobacco: Former Cigarettes Smokeless Tobacco: Never Alcohol Use Standard Drinks/Week Comments Yes 0 (1 standard drink = 0.6 oz pur e alcohol) Sex and Gender Information Value Date Recorded Sex Assigned at Male 11/06/2024 10:32 PM EDT Legal Sex Male 8:27 AM EST Gender Identity Male 11/06/2024 10:32 PM EDT Sexual Orientation Straight 11/06/2024 10 :32 PM EDT documented as of this encounter Plan of Treatment Not on file documented as of this encounter Procedures Procedure Name Priority Date/Time Associated Diagnosis Comments XR TIBIA FIBULA 2 VIEWS RIGHT Routine 02/25/2025 8:37 AM EDT Pain documented in this encounter Results * XR Tibia Fibula 2 Views Right (02/25/2025 8:37 AM EDT) Narrative RIS PACS/VR - 02/25/2025 8:37 AM EDT This order has been auto-finalized and does not contain a result. us Robin Bergman MD IMG XR PROCEDURES Final Resul t RIS PACS/VR documented in this encounter Visit Diagnoses Diagnosis Pain Generalized pain documented in this encounter Care Teams Fiber Optic Technician Relationship Specialty Start Date End Date Joni Ferreira PA [facility] [place] [address] PCP - General Physician Family Engagement Specialist 11/06/24 documented as of this encounter
--- NOTE | 2025-02-25 10:37 | A.OFFPC_ITS ---
Vital Signs 02/25/25 10:38 Height 6 ft 2 in Weight 258 lb 13.163 oz BMI 33.2 BP 140/66 H Blood Pressure Location Lt brachial Position Sitting Pulse 98 Pulse Oximetry (%) 99 Intake Visit Reasons: 02/18 ? 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 Required: No Accompanied by: self Allergies baclofen (BACLOFEN) Allergy (Unknown, Verified 02/25/25 10:40) SWOLLEN LEGS lithium (LITHIUM) Allergy (Unknown, Verified 02/25/25 10:40) ALMOST , body shuts down methadone (METHADONE) Allergy (Unknown, Verified 02/25/25 10:40) HIVES, swelling topiramate (From TOPAMAX) Allergy (Unknown, Verified 02/25/25 10:40) FAINT Amitryptiline Allergy (Unknown, Uncoded 12/31/24 10:29) sleepiness propranolol Allergy (Unknown, Uncoded 12/31/24 10:29) dizziness Medication List - Last Reconciled 02/25/25 by Elizabeth Marcelo MD acetaminophen ER 650 mg PO Q6H albuterol sulfate 90 mcg/actuation 2 puffs inhalation Q6H PRN albuterol sulfate 2.5 mg inhalation Q6H alcohol swabs (Alcohol Wipes) 1 pad topical DAILY 90 days alprazolam 1 mg PO QID PRN amlodipine 10 mg PO DAILY 90 days aspirin 81 mg PO DAILY atorvastatin 80 mg PO BEDTIME [cane As directed] cholecalciferol (vitamin D3) (Vitamin D3) 25 mcg PO DAILY commode As directed compr.stocking,knee,long,large As directed diclofenac sodium 1% 2 grams topical QID 30 days disposable gloves (Biobrane Gloves Large) As directed disposable gloves As directed duloxetine 80 mg PO DAILY kyqklxtjcj-sgeilsry-nnlyng ala 200-25-25 mg (Odefsey) 1 tab PO DAILY fluticasone propionate 50 mcg/actuation 2 sprays intranasal DAILY 30 days fluticasone propionate 110 mcg/actuation 2 puffs inhalation BID [Gloves- size Medium -3 boxes As directed] hydroxyzine pamoate 25 mg PO DAILY PRN ibuprofen 800 mg PO TID PRN 30 days incontinence pad, liner, disp (Prevail Bladder Control Pad) As directed incontinence pad, liner, disp (Pant Liners, Large pads) As directed levocetirizine 5 mg PO DAILY 90 days levothyroxine 200 mcg PO DAILY 90 days lisinopril-hydrochlorothiazide 10-12.5 mg 1 tab PO DAILY miscellaneous medical supply 1 ea miscellaneous DAILY miscellaneous medical supply 1 ea miscellaneous DAILY 90 days miscellaneous medical supply 1 ea miscellaneous .daily 99 days miscellaneous medical supply 1 ea miscellaneous DAILY 99 days miscellaneous medical supply 1 ea miscellaneous ONCE 90 days miscellaneous medical supply 1 ea miscellaneous .nightly 99 days multivitamin 1 tab PO DAILY naloxone 4 mg/actuation (Narcan) 4 mg intranasal Q2M PRN nitroglycerin 0.4 mg sublingual Q5M PRN pregabalin (Lyrica) 50 mg PO BID 30 days promethazine 25 mg PO DAILY PRN 30 days tizanidine 4 mg PO TID PRN zolpidem ER 12.5 mg PO BEDTIME Tobacco use date assessed: 02/25/25 Dental Screening Dental Screen Date: 02/25/25 Did you have a dental visit in the last 12 months?: Yes Did you have a dental problem in the last 6 months where you did not have access to dental care?: No Was dental information given to patient?: Patient has dentist HPI HPI Comments History of Present Illness Details The patient is a 64-year-old male presenting with a follow-up after a recent emergency department visit due to food impaction. Approximately two weeks ago, the patient ingested a piece of pork that became lodged in his throat, necessitating a visit to the emergency department at [facility]. The following day, a gastrointestinal team performed an endoscopic procedure to remove the foreign body, during which they discovered an esophageal polyp. The procedure also revealed an esophageal stricture and a hiatal hernia, which require further follow-up and management. The patient has been advised to follow up with the gastroenterology department for further evaluation and management of these findings. He was admitted to the hospital and received antibiotics during his stay. The patient is currently on famotidine for acid reflux management. 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 Disc degeneration, lumbar Spinal stenosis at L4-L5 level Fibromyalgia Asymptomatic HIV infection Left lumbar radiculopathy Chronic colitis Urinary frequency Depression PTSD (post-traumatic stress disorder) Overweight Hypothyroid HTN (hypertension) Renal insufficiency Affective bipolar disorder Asthma HIV (human immunodeficiency virus infection) Surgical History History of tooth extraction H/O heart artery stent History of colonoscopy Family History Father History of cirrhosis Mother History of high blood pressure History of diabetes mellitus History of asthma Social History Housing: Apartment Alcohol intake: never Patient Tobacco Use Status: Never used Tobacco e-Cigarette/Vaping Use: Never Used Second Hand Smoke Exposure: Yes service: No Current occupational status: disabled Cognitive needs: Yes (walker, cane, wheel chair) Hearing needs: No Vision needs: Yes (Glasses) Questionnaire PHQ-9 Over the last 2 weeks, how often have you been bothered by any of the following problems? 1. Little interest or pleasure in doing things: several days 2. Feeling down, depressed, or hopeless: several days 3. Trouble falling or staying asleep, or sleeping too much: more than half the days 4. Feeling tired or having little energy: nearly every day 5. Poor appetite or overeating: nearly every day 6. Feeling bad about yourself - or that you are a failure or have let yourself or your family down: not at all 7. Trouble concentrating on things, such as reading the newspaper or watching television: several days 8. Moving or speaking so slowly that other people could have noticed. Or the opposite - being so fidgety or restless that you have been moving around a lot more than usual: not at all 9. Thoughts that you would be better off or of hurting yourself in some way: not at all Total score: 11 Source: Developed by Drs. Stewart Mims, Migdalia Hagen, Oral Harvey and colleagues, with an educational evelio from [employer]. Thrive Questionnaire Date Thrive assessed: 12/31/24 I am a: Patient What is your living situation today?: I do not have a steady places to live I am temporarily staying with others Within the past 12 months, did the food you bought not last and you didn't have the money to get more?: Sometimes True Within the past 12 months, did you worry whether your food would run out before you got money to buy more?: Sometimes True Do you have trouble paying for medicines?: No Do you have trouble getting transportation to medical appointments?: No Do you have trouble paying your heating and electricity bill?: Yes Do you have trouble taking care of your child, family member or friend?: No Do you have trouble with day-to-day activities such as bathing, preparing meals, shopping, managing finances, etc.?: Yes Are you currently unemployed and looking for a job?: Yes Are you interested in more education?: No Please select the resources that you would like help with: None Currently or been in a relationship where the following occur: I choose not to answer THRIVE Score: 4 AUDIT C Alcohol Use Questionnaire (AUDIT-C) 1. How often do you have a drink containing alcohol?: Monthly or less 2. How many drinks containing alcohol do you have on a typical day when you are drinking?: 3 or 4 3. How often do you have six or more drinks on one occasion?: Never Total Score: 2 ALBERT-7 AMB Questionnaire ALBERT-7 Date ALBERT - 7 assessed: 12/31/24 Feeling nervous, anxious, or on edge: 3 = Nearly every day Not being able to stop or control worryin = Nearly every day Worrying too much about different things: 3 = Nearly every day Trouble relaxin = Nearly every day Being so restless that it is hard to sit still: 2 = More than half the days Becoming easily annoyed or irritable: 2 = More than half the days Feeling afraid as if something awful might happen: 1 = Several days Total ALBERT-7 score (0-4 normal; 5-9 mild; 10-14 moderate; 15-21 severe): 17 Source: Developed by Drs. Stewart Mims, Migdalia Hagen, Oral Harvey and colleagues, with an educational evelio from [employer]. Review of Systems Const Details: Positives besides what was mentioned in HPI are in BOLD Constitutional: No Weight Change, No Fever, No Chills, No Night Sweats, No Fatigue, No Malaise ENT/Mouth: No Hearing Changes, No Ear Pain, No Nasal Congestion, No Sinus Pain, No Hoarseness, No sore throat, No Rhinorrhea, No Swallowing Difficulty Eyes: No Eye Pain, No Swelling, No Redness, No Foreign Body, No Discharge, No Vision Changes Cardiovascular: No Chest Pain, No SOB, No PND, No Dyspnea on Exertion, No Orthopnea, No Claudication, No Edema, No Palpitations Respiratory: No Cough, No Sputum, No Wheezing, No Smoke Exposure, No Dyspnea Gastrointestinal: No Nausea, No Vomiting, No Diarrhea, No Constipation, No Pain, No Heartburn, No Anorexia, No Dysphagia, No Hematochezia, No Melena, No Flatulence, No Jaundice Genitourinary: No Dysmenorrhea, No DUB, No Dyspareunia, No Dysuria, No Urinary Frequency, No Hematuria, No Urinary Incontinence, No Urgency, No Flank Pain, No Urinary Flow Changes, No Hesitancy Musculoskeletal: No Arthralgias, No Myalgias, No Joint Swelling, No Joint Stiffness, No Back Pain, No Neck Pain, No Injury History Skin: No Skin Lesions, No Pruritis, No Hair Changes, No Breast/Skin Changes, No Nipple Discharge Neuro: No Weakness, No Numbness, No Paresthesias, No Loss of Consciousness, No Syncope, No Dizziness, No Headache, No Coordination Changes, No Recent Falls Psych: No Anxiety/Panic, No Depression, No Insomnia, No Personality Changes, No Delusions, No Rumination, No SI/HI/AH/VH, No Social Issues, No Memory Changes, No Violence/Abuse Hx., No Eating Concerns Heme/Lymph: No Bruising, No Bleeding, No Transfusions History, No Lymphadenopathy Endocrine: No Polyuria, No Polydipsia, No Temperature Intolerance Physical exam (Primary Care) Vital Signs: Last Vital Signs Pulse 98 02/25/25 10:38 BP 140/66 H 02/25/25 10:38 Pulse Ox 99 02/25/25 10:38 BMI result Body Mass Index 33.2 Tobacco/Smoking Status: Tobacco use Status Tobacco use date assessed 02/25/25 02/25/25 10:44 Patient Tobacco Use Status Never used Tobacco 02/25/25 10:40 e-Cigarette/Vaping Use Never Used 02/25/25 10:40 PHQ-9: PHQ-9 Score PHQ-9: Total score 11 02/25/25 10:40 Thrive Assessment: Date of Thrive Assessment Date Thrive assessed 12/31/24 02/25/25 10:40 Currently or been in a relationship where the following occur: I choose not to answer Const Other: Pertinent findings are in BOLD GENERAL APPEARANCE NAD, activity normal for age, well developed/ well nourished, no cyanosis, pallor, or diaphoresis. EYES lids/conjunctiva normal. EARS/NOSE/THROAT Mucous membranes moist, nares normal, lips/teeth normal uvula midline without oral pharyngeal erythema, exudate or swelling TMs normal bilaterally. No lymphangitis/lymphedema. HEAD/NECK normocephalic atraumatic, no facial trauma, neck is supple. RESPIRATORY respiratory effort normal, speaks in full sentences, no tripod position, no accessory muscle use. Lungs clear to auscultation without rhonchi, wheezes, rales CARDIAC Regular rate and rhythm, no edema. ABDOMINAL Soft, ND/NT. No evidence of fluid wave. No pulsatile masses on exam, rebound tenderness, Morales sign or pain over Mcburney's point. MUSCLES/EXTREMITIES No abnormal range of motion, no swelling. SKIN Warm, pink and dry. No rashes, dermatoses, petechiae or lesions. NEUROLOGICAL Speech is clear and appropriate. Normal level of consciousness. Gait and coordination are normal. 5/5 strength in all extremities. PSYCH Normal mood and affect. Judgement/competence is appropriate Coding Level of Care Code Est Pt Level 2 (18981) Diagnoses Food impaction of esophagus T18.128A; W44.F3XA Assessment & Plan Assessment & Plan (1) Food impaction of esophagus: Code(s): T18.128A - Food in esophagus causing other injury, initial encounter; W44.F3XA - Food entering into or through a natural orifice, initial encounter Category: Medical Plan: I did not have access to [facility] and it was unclear what were the findings of the patient upper endoscopy. - Patient will F-U with [facility] GI. - Increased dose of Famotidine to 40 mg Daily from 20 mg. Plan During the visit, we discussed the findings from the recent endoscopic procedure, including the removal of the esophageal foreign body and the discovery of an esophageal polyp, stricture, and hiatal hernia. I advised the patient to follow up with the gastroenterology department for further evaluation and management of these findings. We also discussed the current medication regimen, deciding to increase the dose of famotidine for better symptom control until further evaluation by the gastroenterology team. Medications: Changed From famotidine 20 mg PO BEDTIME 90 tabs 2RF K21.9 - Gastro-esophageal reflux disease without esophagitis To famotidine 40 mg (2 x 20 mg) PO BEDTIME 90 tabs 2RF K21.9 - Gastro-esophageal reflux disease without esophagitis
[2025-02-25 10:38] VITALS: BP 140/66; PULSE 98; O2SAT 99; BMI 33.2
--- OUTSIDE RECORDS SUMMARY | 2025-02-25 13:12 | XMS_ITS | Encounter Summary ---
Author Organization [facility] Address [address] [place] [address] Phone Care Team Providers Care Sales Training Representative Name Role Phone Joni Ferreira Primary Care Provider [phone] Encounter Details Date Type Department Care Team (Late st Contact Info) Description 02/23/2022 Telephone [facility] [address] [place] [address] Omar Masterson MD Social History [...] just spent the last 24 hours at [facility] ER and they told him his kidneys aren't doing well. He is already scheduled for an appointment on 03/11/22 but if he needs to be seen sooner please call him back at [phone] Thank you documented in this encounter Plan of Treatment Not on file documented as of this encounter Visit Diagnoses Not on filedocumented in this encounter Care Teams Sales Training Representative Relationship Specialty Start Date End Date Joni Frereira PA [address] [place] [address], [address] [place] [address] PCP - General Physician [address] Mender 09/03/21 documented as of this encounter
--- OUTSIDE RECORDS SUMMARY | 2025-02-25 13:12 | XMS_ITS | Clinical Summary ---
Author Organization [facility] Address [address] [place] [address] Phone Care Team Providers Care Sock Knitter Name Role Phone Joni Ferreira Primary Care Provider Allergies Active Allergy Reactions Criticality Noted Date Comments Amitriptyline 11/09/2024 Baclofen Other 04/24/2018 Swelling of legs [place] Other 04/24/2018 No reactions documented Methadone Other 04/24/2018 Shaky/ sweats Other Reaction(s): shaky, sweats methadone Morphine Diarrhea High 04/24/2018 .no reaction documented Perphenazine Other 11/09/2024 Propranolol Other 07/11/2018 Fainted twice while on the med Topiramate 11/09/2024 Medications No known medications Active Problems No known active problems Encounters Date Type Department Care Team Description 02/25/2025 7:51 AM EDT Hospital Encounter [facility] [address] [place] [address] Pain 01/31/2025 7:35 AM EDT - 01/31/2025 11:59 PM EDT Hospital Encounter [facility] [address] [place] [address] Pain Discharge Disposition: Home or Self Care 01/31/2025 7:35 AM EDT - 01/31/2025 11:59 PM EDT Hospital Encounter [facility] [address] [place] [address] Pain Discharge Disposition: Home or Self Care 12/20/2024 7:59 AM EDT - 12/20/2024 11:59 PM EDT Hospital Encounter [facility] [address] [place] [address] Discharge Disposition: Home or Self Care 12/04/2024 11:15 AM EDT - 12/04/2024 4:20 PM EDT Emergency [facility] [address] [place] [address] Closed fracture of right tibia and fibula, initial encounter (Primary Dx); Hematoma Discharge Disposition: Home or Self Care from Last 3 Months Immunizations Name Administration Dates Next Due Human Rabies, Chicken Fibrob last Cell Culture, ([place]abavert) 11/20/2024,11/13/2024,11/09/2024, 025 Medical History Medical History Date Comments Human immunodeficiency virus (HIV) disease ([facility] V24, [facility] V28) 04/24/2018 DX:Human immunodefi ciency virus (HIV) disease ([facility]) Anxiety 04/24/2018 DX:Anxiety Bipolar disorder ([facility] V2 4, [facility] V28) 04/24/2018 DX:Bipolar disorder ([facility]) History of Graves' disease 04/24/2018 DX:Hi story of Graves' disease CKD (chronic kidney disease) stage 3, GFR 30-59 ml/min ([facility] V24, [facility] V28) 04/24/2018 DX:CKD (chronic kidney disea se) stage 3, GFR 30-59 ml/min ([facility]) HTN (hypertension) 04/24/2018 DX:HTN (hyper tension) [...] Health Screening 11/07/2024 Influenza Vaccine (#1) 2025 3, 03/24/2022, 04/13/2021, Additional history exists Hypertension/CHF/CAD Annual [...] RIGHT Routine 02/25/2025 8:37 AM EDT Pain XR ANKLE 3+ VIEWS RIGHT Routine 01/31/2025 8:59 AM EDT Pain XR TIBIA FIBULA 2 VIEWS RIGHT Routine 01/31/2025 8:58 AM EDT Pain XR TIBIA FIBULA 2 VIEWS RIGHT Routine 12/20/2024 8:10 AM EDT Pain XR TIBIA FIBULA 2 VIEWS RIGHT STAT 12/04/2024 1:39 PM EDT XR ANKLE 3+ VIEWS RIGHT STAT 12/04/2024 1:39 PM EDT VAS US DUPLEX LOWER EXT VENOUS RIGHT Routine 12/04/2024 12:54 PM EDT Closed fracture of right tibia and fibula, initial encounter BASIC METABOLIC PANEL STAT 11/06/2024 6:09 PM EDT from Last 3 Months or Most Recently Relevant to Health Maintenance Results * XR Tibia Fibula 2 Views Right (02/25/2025 8:37 AM EDT) Only the most recent of4 resultswithin the time period is included. Narrative RIS PACS/VR - 02/25/2025 8:37 AM EDT This order has been auto-finalized and does not contain a result. us Robin Bergman MD IMG XR PROCEDURES Final Resul t Performing Organization Address [facility] de Phone Number RIS PACS/VR * XR Ankle 3+ Views Right (01/31/2025 8:59 AM EDT) Only the most recent of2 resultswithin the time period is included. Narrative RIS PACS/VR - 01/31/2025 8:59 AM EDT This order has been auto-finalized and does not contain a result. us Riky Pitt MD IMG XR PROCEDURES Final R esult Performing Organization Address [facility] de Phone Number RIS PACS/VR * Vascular US duplex lower extremity venous [...] Signed Date: 12/04/2024 12:59 ET Workstation ID: [id number] Transcribed By: Self Edit Transcribed Date: 12/04/2024 [...] Signed Date: 12/04/2024 12:59 ET Workstation ID: [id number] Transcribed By: Self Edit Transcribed Date: 12/04/2024 12:59 ET Dayanna BARRON CV VASCULAR PROCEDURES F inal Result * (ABNORMAL) Basic metabolic panel (11/06/2024 6:09 PM EDT) Sodium 138 133 - 145 mmol/L LAB CHEMISTRY METHOD 11/06/2024 6:50 PM [facility] Potassium 3.6 3.5 - 5.5 mmol/L LAB CHEMISTRY METHOD 11/06/2024 6:50 PM [facility] Comment:Hemolysis present Chloride 104 96 - 110 mmol/L LAB CHEMISTRY METHOD 11/06/2024 6:50 PM [facility] CO2 27 21 - 32 mmol/L LAB CHEMISTRY METHOD 11/06/2024 6:50 PM [facility] Anion Gap 7 3 - 11 LAB CHEMISTRY METHOD 11/06/2024 6:50 PM [facility] Glucose 113(H) 70 - 100 mg/dL LAB CHEMISTRY METHOD 11/06/2024 6:50 PM [facility] BUN 26(H) 5 - 25 mg/dL LAB CHEMISTRY METHOD 11/06/2024 6:50 PM EDT [facility] Creatinine 1.50(H) 0.70 - 1.30 mg/dL LAB CHEMISTRY METHOD 11/06/2024 6:50 PM EDT [facility] eGFR 52(L) >=60 mL/min/1. 73m2 LAB CHEMISTRY METHOD 11/06/2024 6:50 PM EDT [facility] Comment:Calculation based on the Chronic Kidney Disease Epidemiology Collaboration (CKD-EPI) equation refit without adjustment for race. BUN/Creatinine Ratio 17.3 LAB CHEMISTRY METHOD 11/06/2024 6:50 PM EDT [facility] Calcium 9.2 8.5 - 10.5 mg/dL LAB CHEMISTRY METHOD 11/06/2024 6:50 PM EDT [facility] Blood Venous blood specimen / Unknown Venipuncture / Unknown 11/06/2024 6:09 PM EDT 11/06/2024 6:17 PM EDT us Bi Crooks MD LAB BLOOD ORDERABLES Final Res ult [facility] [address] [place] [address], from Last 3 Months or Most Recently Relevant to Health Maintenance Insurance [facility] MEDIC[employer] Member Subscriber Plan / Payer (Ef fective 2021-Present) Name:ANTHONY ROBB Relation to Subscriber:Self Name:Colton Anthony Payer ID:[id number] Group ID:[id number] Type:Not on file Address: [place] [address] [address] [id number] Care Teams Sock Knitter Relationship Specialty Start Date End Date Joni Ferreira PA [address] [place] [address] PCP - General Physician Manager Community 11/06/24
--- OUTSIDE RECORDS SUMMARY | 2025-02-25 13:12 | XMS_ITS | Clinical Summary ---
Author Organization [facility] Address [address] [place] [address] Phone Care Team Providers Care Music Therapist Name Role Phone Joni Ferreira Primary Care Provider [phone] Allergies Active Allergy Reactions Criticality Noted Date Comments Baclofen Other (see comments) 09/03/2020 Medications Multiple Vitamin (MULTIVITAMIN ADULT PO) Take 1 tablet by mouth 1 (one) time each day Active albuterol (2.5 MG/3ML) 0.083% nebulizer solution Active albuterol HFA (PROVENTIL HFA;VENTOLIN HFA) 108 (90 Base) MCG/ACT inhaler Active ALPRAZolam (XANAX) 1 MG tablet Take 1 tablet by mouth 4 (four) times a day Active DULoxetine (CYMBALTA) [address] capsule Take 1 capsule by mouth 4 (four) times a day Active Emtricitab-Rilp ivir-Tenofov AF (Odefsey) 200-25-25 MG tablet Take 1 tablet by mouth 1 (one) time each day Active fluticasone (FLONASE) 50 MCG/ACT nasal spray Active lamoTRIgine (LaMICtal) 150 MG tablet Take 1 tablet by mouth 1 (one) time each day Active levothyroxine (SYNTHROID, LEVOTHROID) 200 MCG tablet Take 1 tablet by mouth 1 (one) time each day Active lisinopril-hydr oCHLOROthiazide (PRINZIDE,ZESTO RETIC) 10-12.5 MG per tablet Take 1 tablet by mouth 1 (one) time each day Active OXcarbazepine (TRILEPTAL) 600 MG tablet Take 1 tablet by mouth 1 (one) time each day Active promethazine (PHENERGAN) 25 MG tablet Take 25 mg by mouth if needed Active raNITIdine (ZANTAC) 150 MG capsule Take 1 capsule by mouth if needed Active tiZANidine (ZANAFLEX) 4 MG capsule Take 1 capsule by mouth 3 (three) times a day Active zolpidem (AMBIEN) 10 MG tablet Take 1 tablet by mouth 1 (one) time each day Active Mapap Arthritis Pain 650 MG 8 hr tablet Take 1 tablet by mouth every 6 (six) to 8 (eight) hours if needed 07/19/2020 Active gabapentin (NEURONTIN) 800 MG tablet Take 800 mg by mouth 3 times a day 08/21/2020 Active Belbuca 900 MCG film Take 1 tablet by mouth every 12 (twelve) hours 08/21/2021 Active oxyCODONE-aceta minophen (PERCOCET) 7.5-325 MG per tablet Take 1 tablet by mouth in the morning and 1 tablet in the evening. 09/02/2021 Active D-1000 Extra Strength 25 MCG (1000 UT) tablet Take 1,000 Units by mouth 1 (one) time each day 06/21/2021 Active Banophen 25 MG capsule Take 25 mg by mouth every 12 (twelve) hours 08/17/2021 Active metoprolol tartrate 25 MG tablet Take 12.5 mg by mouth in the morning and 12.5 mg in the evening. Active clopidogrel (PLAVIX) 75 MG tablet Take 75 mg by mouth 1 (one) time each day Active atorvastatin (LIPITOR) 80 MG tablet Take 80 mg by mouth 1 (one) time each day Active Active Problems Problem Noted Date Diagnosed Date Hypertension 09/03/2021 Chronic kidney disease stage 3 09/03/2020 Degeneration of lumbosacral intervertebral disc 09/03/2020 Hypertensive heart and renal disease with (congestive) heart failure 09/03/2020 Family History Medical History Relation Comments Diabetes Mother Heart disease Mother Hypertension Mother Kidney disease Mother Hypertension Sibling 1 Kidney disease Sibling 2 Relation Status Comments Mother Sibling 1 Sibling 2 Social History Tobacco Use Types Packs/Day Years [...] on file Sexual Orientation Not on file Last Filed Vital Signs Vital Sign Reading Time Taken Comments Blood Pressure 120/80 02/18/2023 11:32 AM EDT Pulse 64 02/18/2023 11:32 AM EDT Temperature - - Respiratory Rate - - Oxygen Saturation 95% 01/17/2019 12:00 PM EDT Inhaled Oxygen Concentration - - Weight 121 kg (267 lb 3.2 oz) 09/03/2021 4:15 PM EDT Height 188 cm (6' 2 ) 09/11/2019 12:00 PM EDT Body Mass Index 34.31 09/11/2019 12:00 PM EDT Plan of Treatment Health Maintenance Due Date Last Done Comments Pneumococcal Vaccine: 50+ Ye ars (1 of 2 - PCV) 1980 Colorectal Cancer Screening: Annual FOBT 2010 Colorectal Cancer Screening: Colonoscopy 2010 Colorectal Cancer Screening: Sigmoidoscopy 2010 Influenza Vaccine (#1) 2025 Hepatitis B Vaccine Aged Out No longe r eligible based on patient's age to complete this topic Insurance ([id number]) [place] [address] ([id number]) [address] [id number] Care Teams Music Therapist Relationship Specialty Start Date End Date Joni Ferreira PA [address] [place] [address], [address] [place] [address] PCP - General Physician Health Administration Teacher 09/03/21
== END 2025-02-25 11:02 | disposition home or self-care (01) ==
LOC: HO.HMCH 10:24
PROVIDERS: PCP Physician Assistant; Visit Provider Internal Medicine
DX: T18.128A Food in esophagus causing other injury, initial encounter (principal); W44.F3XA Food entering into or through a natural orifice, initial encounter

== ENCOUNTER → 2025-02-25 10:23 | Outpatient (BNVA) | payer OTHER, SELFPAY | PROVIDERS: PCP Physician Assistant; Visit Provider Internal Medicine | DX: K21.9 Gastro-esophageal reflux disease without esophagitis (principal); K22.2 Esophageal obstruction; K44.9 Diaphragmatic hernia without obstruction or gangrene; K22.81 Esophageal polyp; T18.128D Food in esophagus causing other injury, subsequent encounter; W44.F3XD Food entering into or through a natural orifice, subsequent encounter | CPT/HCPCS: 99212 ==

== ENCOUNTER 2025-04-02 14:45 | Outpatient (AMB) | payer OTHER, SELFPAY ==
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
[2025-04-02 14:59] VITALS: BP 140/90; PULSE 78; TEMP 36.3; O2SAT 98; BMI 33.4
--- OUTSIDE RECORDS SUMMARY | 2025-04-02 19:50 | XMS_ITS | Clinical Summary ---
Author Organization 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 Name Role Phone Joni Ferreira Primary Care Provider Allergies Active Allergy Reactions Criticality Noted Date Comments Amitriptyline 11/09/2024 Baclofen Other 04/24/2018 Swelling of legs [place] Other 04/24/2018 No reactions documented Methadone Other 04/24/2018 Shaky/ sweats Other Reaction(s): shaky, sweats methadone Morphine Diarrhea High 04/24/2018 .no reaction documented Perphenazine Other 11/09/2024 Propranolol Other 07/11/2018 Fainted twice while on the med Topiramate 11/09/2024 Medications No known medications Active Problems No known active problems Encounters Date Type Department Care Team Description 02/25/2025 7:51 AM EDT - 02/25/2025 11:59 PM EDT Hospital Encounter [facility] [address] [place] [address] Pain Discharge Disposition: Home or Self Care 01/31/2025 7:35 AM EDT - 01/31/2025 11:59 PM EDT Hospital Encounter [facility] [address] [place] [address] Pain Discharge Disposition: Home or Self Care 01/31/2025 7:35 AM EDT - 01/31/2025 11:59 PM EDT Hospital Encounter [facility] [address] [place] [address] Pain Discharge Disposition: Home or Self Care from Last 3 Months Immunizations Immunization Administration Dates Next Due Human Rabies, Chicken Fibrob last Cell Culture, ([place]) 11/20/2024,11/13/2024,11/09/2024,2024 Medical History Medical History Date Comments Human immunodeficiency virus (HIV) disease ([facility] [place]24, [facility] V28) 04/24/2018 DX:Human immunodefi ciency virus (HIV) disease (HCC) Anxiety 04/24/2018 DX:Anxiety Bipolar disorder ([facility] V2 4, [facility] V28) 04/24/2018 DX:Bipolar disorder ([facility]) History of Graves' disease 04/24/2018 DX:Hi story of Graves' disease CKD (chronic kidney disease) stage 3, GFR 30-59 ml/min ([facility] V24, [facility] V28) 04/24/2018 DX:CKD (chronic kidney disea se) stage 3, GFR 30-59 ml/min ([facility]) HTN (hypertension) 04/24/2018 DX:HTN (hyper tension) GERD [...] Health Maintenance Due Date Last Done Comments Colorectal Cancer Screening: Colonoscopy 1961 Meningococcal ACWY Vaccine (1 - Risk 2-dose series) 1963 MMR Vaccines (1 of 2 - Risk 2-dose series) 1979 RSV Immunization Adult Patients (1 - Risk 50-74 years 1-dose series) 2011 Hepatitis A Vaccines (3 of 3 - Hep A Twinrix risk 3-dose series) 04/29/2014 11/27/2013, 08/23/2013 Hepatitis B Vaccines (3 of 3 - Hep B Twinrix risk 3-dose series) 04/29/2014 11/27/2013, 08/23/2013 COVID-19 Vaccine (3 - Pfizer risk series) 10/17/2020 09/19/2020, 07/31/2020 Pneumococcal Vaccine: 50+ Years (4 of 4 - PCV20 or PCV21) 02/24/2022 02/24/2017, 02/19/2015, 02/09/2012 Depression Screening 06/13/2024 Cholesterol Screening (Lipid Panel) 11/07/2024 Hepatitis C Screening 11/07/2024 Medicare Annual [...] RIGHT Routine 01/31/2025 8:58 AM EDT Pain BASIC METABOLIC PANEL STAT 11/06/2024 6:09 PM EDT from Last 3 Months or Most Recently Relevant to Health Maintenance Results * XR Tibia Fibula 2 Views Right (02/25/2025 8:37 AM EDT) Only the most recent of2 resultswithin the time period is included. Narrative RIS PACS/VR - 02/25/2025 8:37 AM EDT This order has been auto-finalized and does not contain a result. us Robin Bergman MD IMG XR PROCEDURES Final Resul t RIS PACS/VR * XR Ankle 3+ Views Right (01/31/2025 8:59 AM EDT) Narrative RIS PACS/VR - 01/31/2025 8:59 AM EDT This order has been auto-finalized and does not contain a result. us Riky Pitt MD IMG XR PROCEDURES Final R esult RIS PACS/VR * (ABNORMAL) Basic metabolic panel (11/06/2024 6:09 [...] 11/06/2024 6:50 PM [facility] Creatinine 1.50(H) 0.70 - 1.30 mg/dL LAB CHEMISTRY METHOD 11/06/2024 6:50 PM [facility] eGFR 52(L) >=60 mL/min/1. 73m2 LAB CHEMISTRY METHOD 11/06/2024 6:50 PM [facility] Comment:Calculation based on the Chronic Kidney Disease Epidemiology Collaboration (CKD-EPI) equation refit without adjustment for race. BUN/Creatinine Ratio 17.3 LAB CHEMISTRY METHOD 11/06/2024 6:50 PM [facility] Calcium 9.2 8.5 - 10.5 mg/dL LAB CHEMISTRY METHOD 11/06/2024 6:50 PM [facility] Blood Venous blood specimen / Unknown Venipuncture / Unknown 11/06/2024 6:09 PM EDT 11/06/2024 6:17 PM EDT us Bi Crooks MD LAB BLOOD ORDERABLES Final Res ult [facility] [address] [place] [address], [place] [phone] from Last 3 Months or Most Recently Relevant to Health Maintenance Insurance [facility] MEDICARE Member Subscriber Plan / Payer (Ef fective 2021-Present) Name:ATNHONY ROBB Relation to Subscriber:Self Name:Anthony Robb Payer ID:[id number] Group ID:[id number] Type:Not on file Address: [place] [address] [id number] Care Teams Automobile Repair Service Estimator Relationship Specialty Start Date End Date Joni Ferreira PA [address] [place] [address] PCP - General Physician Carton Stapler 11/06/24
--- OUTSIDE RECORDS SUMMARY | 2025-04-02 19:50 | XMS_ITS | Data Portability ---
Author Organization [employer] [facility], [facility] Address [address] [place] [address] Care Team Providers Care Plating Tank Operator Name Role Phone [facility] Referring Provider Assessment Encounter Date [...] PCP. The patient agreed with this plan. [email or web address] Not available 09/13/2022 16:47:07 Plan of Treatment [...] Diagnosis SNOMED-CT Code Diagnosis ICD10 Code Diagnosis IMO Codes Diagnosis Note [id number] [facility] [address] [place] [phone] 09/13/2022 16:42:13 09/13/2022 16:47:23 Health Concerns Section Related Observation LastModified by Organization Detai ls LastModified Time None Recorded Concern Status LastModified by Organization Details LastModified Time None Recorded Advance Directives Directive None Recorded Payers Insurance Date Sequence Insurance Name Policy Number Policy Guajardo Covered Member ID Guajardo Member ID Guarantor Name 10/12/2024 1 [facility] - DOS PRIOR TO 2022 - DUAL ELIGIBLE (MEDICARE REPLACEMENT/ADV ANTAGE - HMO) Anthony Segura [id number] Anthony Segura 10/12/2024 1 [facility] - DOS ON OR AFTER 2022 - DUAL ELIGIBLE - RETIREMENT OPTIONS AND ONE CARE (MEDICARE REPLACEMENT/ADV ANTAGE - HMO) Anthony Segura [id number] Anthony Segura Notes Date Note Type Note [...] but would like evaluation of LLE by [facility] team today Jeferson Mccray MD [address] [place] [address],[address], [place], [address], [employer] [facility] 09/13/2022 16:47:21
== END 2025-04-02 15:41 | disposition home or self-care (01) ==
LOC: HO.HMCH 14:46
PROVIDERS: PCP Physician Assistant; Visit Provider Physician Assistant
DX: Z00.00 Encounter for general adult medical examination without abnormal findings (principal); I12.9 Hypertensive chronic kidney disease with stage 1 through stage 4 chronic kidney disease, or unspecified chronic kidney disease; F33.1 Major depressive disorder, recurrent, moderate; Z21 Asymptomatic human immunodeficiency virus [HIV] infection status; N18.31 Chronic kidney disease, stage 3a; M79.7 Fibromyalgia; I25.708 Atherosclerosis of coronary artery bypass graft(s), unspecified, with other forms of angina pectoris; E03.9 Hypothyroidism, unspecified; Z59.00 Homelessness unspecified

== ENCOUNTER → 2025-04-02 14:45 | Outpatient (BNVA) | payer OTHER, SELFPAY | PROVIDERS: PCP Physician Assistant; Visit Provider Physician Assistant | DX: Z00.00 Encounter for general adult medical examination without abnormal findings (principal); R32 Unspecified urinary incontinence; E03.9 Hypothyroidism, unspecified; G89.4 Chronic pain syndrome; J45.909 Unspecified asthma, uncomplicated; G43.909 Migraine, unspecified, not intractable, without status migrainosus; F33.1 Major depressive disorder, recurrent, moderate; M79.7 Fibromyalgia; I12.9 Hypertensive chronic kidney disease with stage 1 through stage 4 chronic kidney disease, or unspecified chronic kidney disease; N18.31 Chronic kidney disease, stage 3a; I25.708 Atherosclerosis of coronary artery bypass graft(s), unspecified, with other forms of angina pectoris; Z21 Asymptomatic human immunodeficiency virus [HIV] infection status; Z59.01 Sheltered homelessness; Z99.89 Dependence on other enabling machines and devices; Z79.899 Other long term (current) drug therapy | CPT/HCPCS: 99396 ==

== ENCOUNTER 2025-05-24 10:34 | Outpatient (AMB) | payer OTHER, SELFPAY ==
[2025-05-24 10:42] VITALS: BP 156/88; PULSE 78; RESP 18; O2SAT 97; BMI 35.9
--- NOTE | 2025-05-24 10:42 | MHC.PC.OV ---
Vital Signs 05/24/25 10:42 Height 6 ft 2 in Weight 279 lb 8 oz BMI 35.9 BP 156/88 H Blood Pressure Location Lt brachial Position Sitting Respiration 18 Pulse 78 Pulse Source Pulse Oximeter Temp Source Temporal Artery Scan Pulse Oximetry (%) 97 Oxygen Delivery Method Room Air Intake Visit Reasons: Back pain Tire Layer Required: No Accompanied by: Self / Same As Patient Allergies baclofen (BACLOFEN) Allergy (Unknown, Verified 05/24/25 10:43) SWOLLEN LEGS lithium (LITHIUM) Allergy (Unknown, Verified 05/24/25 10:43) ALMOST , body shuts down methadone (METHADONE) Allergy (Unknown, Verified 05/24/25 10:43) HIVES, swelling topiramate (From TOPAMAX) Allergy (Unknown, Verified 05/24/25 10:43) FAINT Amitryptiline Allergy (Unknown, Uncoded 04/02/25 15:16) sleepiness propranolol Allergy (Unknown, Uncoded 04/02/25 15:16) dizziness Tobacco use date assessed: 05/24/25 Dental Screening Dental Screen Date: 05/24/25 HPI HPI Comments History of Present Illness Details The patient is a 64-year-old male with PMH of Fibromyalgia, MDD, HTN, HLD, HIV, CKD, presenting for medication management for worsening back pain. He has a history of fibromyalgia and reports his back pain has increased since stopping gabapentin a couple of months ago. He was taking both Lyrica and gabapentin. His Lyrica dose was increased to 50 mg BID 2 months ago. Despite the Lyrica increase his back stiffens and hurts, limiting his ability to walk to about five minutes before needing to sitting down. The patient's current medications for pain include Lyrica, tizanidine, and Tylenol. He does not take ibuprofen due to CKD. He has a history of kidney problems, with his most recent GFR noted as 54. Socially, the patient reports being homeless, which has resulted in stress eating and a significant weight gain from 210 lbs to nearly 280 lbs over a couple of months. 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 Disc degeneration, lumbar Spinal stenosis at L4-L5 level Fibromyalgia Asymptomatic HIV infection Left lumbar radiculopathy Chronic colitis Urinary frequency Depression PTSD (post-traumatic stress disorder) Overweight Hypothyroid HTN (hypertension) Renal insufficiency Affective bipolar disorder Asthma HIV (human immunodeficiency virus infection) Surgical History History of endoscopy History of tooth extraction H/O heart artery stent History of colonoscopy Family History Father History of cirrhosis Mother History of high blood pressure History of diabetes mellitus History of asthma Social History Housing: Apartment Alcohol intake: never Patient Tobacco Use Status: Never used Tobacco e-Cigarette/Vaping Use: Never Used Second Hand Smoke Exposure: Yes service: No Current occupational status: disabled Cognitive needs: Yes (walker, cane, wheel chair) Hearing needs: No Vision needs: Yes (Glasses) Questionnaire Thrive Questionnaire Date Thrive assessed: 05/24/25 I am a: Patient What is your living situation today?: I do not have a steady places to live I am temporarily staying with others Within the past 12 months, did the food you bought not last and you didn't have the money to get more?: Sometimes True Within the past 12 months, did you worry whether your food would run out before you got money to buy more?: Sometimes True Do you have trouble paying for medicines?: No Do you have trouble getting transportation to medical appointments?: No Do you have trouble paying your heating and electricity bill?: Yes Do you have trouble taking care of your child, family member or friend?: No Do you have trouble with day-to-day activities such as bathing, preparing meals, shopping, managing finances, etc.?: Yes Are you currently unemployed and looking for a job?: Yes Are you interested in more education?: No Please select the resources that you would like help with: None Currently or been in a relationship where the following occur: I choose not to answer THRIVE Score: 4 ALBERT-7 AMB Questionnaire ALBERT-7 Date ALBERT - 7 assessed: 12/31/24 Source: Developed by Drs. Stewart Mims, Migdalia Hagen, Oral Harvey and colleagues, with an educational evelio from [employer]. Review of Systems Const Details: As per HPI. Physical exam (Primary Care) Vital Signs: Last Vital Signs Pulse 78 05/24/25 10:42 Resp 18 05/24/25 10:42 BP 156/88 H 05/24/25 10:42 Pulse Ox 97 05/24/25 10:42 Oxygen Delivery Method Room Air 05/24/25 10:42 BMI result Body Mass Index 35.9 Tobacco/Smoking Status: Tobacco use Status Tobacco use date assessed 05/24/25 05/24/25 10:51 Patient Tobacco Use Status Never used Tobacco 05/24/25 10:51 e-Cigarette/Vaping Use Never Used 05/24/25 10:51 Thrive Assessment: Date of Thrive Assessment Date Thrive assessed 05/24/25 05/24/25 10:51 Currently or been in a relationship where the following occur: I choose not to answer Const Other: Pertinent findings are in BOLD GENERAL APPEARANCE NAD, activity normal for age, well developed/ well nourished, no cyanosis, pallor, or diaphoresis. EYES lids/conjunctiva normal. EARS/NOSE/THROAT Mucous membranes moist, nares normal, lips/teeth normal uvula midline without oral pharyngeal erythema, exudate or swelling TMs normal bilaterally. No lymphangitis/lymphedema. HEAD/NECK normocephalic atraumatic, no facial trauma, neck is supple. RESPIRATORY respiratory effort normal, speaks in full sentences, no tripod position, no accessory muscle use. Lungs clear to auscultation without rhonchi, wheezes, rales CARDIAC Regular rate and rhythm, no edema. ABDOMINAL Soft, ND/NT. No evidence of fluid wave. No pulsatile masses on exam, rebound tenderness, Morales sign or pain over Mcburney's point. MUSCLES/EXTREMITIES No abnormal range of motion, no swelling. Muscle spasm in lower back. Cast to RLL. SKIN Warm, pink and dry. No rashes, dermatoses, petechiae or lesions. NEUROLOGICAL Speech is clear and appropriate. Normal level of consciousness. Gait and coordination are normal. 5/5 strength in all extremities. PSYCH Normal mood and affect. Judgement/competence is appropriate Coding Level of Care Code Est Pt Level 3 (07641) Diagnoses Back pain M54.9 Allergies T78.40XA Time Spent (min) 20 Assessment & Plan Assessment & Plan (1) Back pain: Code(s): M54.9 - Dorsalgia, unspecified Category: Medical Plan: - The patient's worsening back pain and fibromyalgia symptoms are likely exacerbated by the cessation of gabapentin. - Increasing Lyrica was considered but decided against to avoid excessive drowsiness and dependence. - Given the primary complaint is back stiffness and spasm, a muscle relaxant is a more appropriate choice. - The dose of tizanidine will be increased; the patient is instructed to take two 4 mg tablets up to three times per day as needed for pain. - This dose increase is considered safe as his recent GFR of 54 is above the caution threshold of 25. - He is advised that tizanidine may cause some drowsiness. - Continue taking Tylenol as needed for pain. - A prescription for daily aspirin will also be provided as requested. (2) Allergies: Code(s): T78.40XA - Allergy, unspecified, initial encounter Category: Medical Plan: - The patient requested a refill for Benadryl for his allergies. - The request for Benadryl (diphenhydramine) was denied due to the risk of additive drowsiness and sedation given his other medications, including Lyrica, and tizanidine. Plan I discussed with the patient that his increased back pain seems related to stopping gabapentin. We considered increasing his Lyrica, but I explained my reluctance to keep increasing the dose of this type of medication. Since his symptoms are primarily back stiffness and spasms, I recommended increasing his muscle relaxant, tizanidine, as a better option. I reviewed his kidney function and confirmed that his GFR of 54 allows for this dose adjustment, as we would be more cautious if it were below 25. I educated him that the increased tizanidine dose might cause drowsiness. I denied his request for a Benadryl prescription, explaining that it is not a safe option due to its sedating effects, which would be additive with his other medications. I agreed to refill his daily aspirin prescription. I also advised him that if he is fasting, he can proceed to the lab to get the bloodwork done that had previously ordered. Medications: Changed From tizanidine 4 mg PO TID PRN 270 tabs 3RF muscle spasticity To tizanidine 8 mg (2 x 4 mg) PO TID PRN 270 tabs 3RF muscle spasticity Refilled aspirin 81 mg PO DAILY 90 tabs 1RF
== END 2025-05-24 11:22 | disposition home or self-care (01) ==
LOC: HO.HMCH 10:35
PROVIDERS: PCP Physician Assistant; Visit Provider Internal Medicine
DX: M54.9 Dorsalgia, unspecified (principal); T78.40XA Allergy, unspecified, initial encounter

== ENCOUNTER → 2025-05-24 10:34 | Outpatient (BNVA) | payer OTHER, SELFPAY | PROVIDERS: PCP Physician Assistant; Visit Provider Internal Medicine | DX: Z51.81 Encounter for therapeutic drug level monitoring (principal); M54.9 Dorsalgia, unspecified; T78.40XA Allergy, unspecified, initial encounter; Z79.899 Other long term (current) drug therapy | CPT/HCPCS: 99212 ==

== ENCOUNTER 2025-05-28 13:15 | Outpatient (REF) | payer OTHER, SELFPAY ==
[2025-05-28 15:28] LABS: Resp Syncy Virus RNA Qual PCR NEGATIVE (Negative); SARS COV2 PCR INHOUSE NEGATIVE (Negative)
--- OUTSIDE RECORDS SUMMARY | 2025-05-28 18:36 | XMS_ITS | Data Portability ---
Author Organization [employer] [facility], [facility] Address [address] [place] [address] Care Team Providers Care Psychometric Examiner Name Role Phone [facility] Referring Provider [phone] Assessment Encounter Date Assessment Date Assessment LastModified [...] PCP. The patient agreed with this plan. [email or web address] Not available 09/13/2022 16:47:07 Plan of Treatment [...] Codes Diagnosis Note [id number] Jeferson Mccray [facility] [address] [place] [phone] 09/13/2022 16:42:13 09/13/2022 16:47:23 Health Concerns Section Related Observation LastModified by Organization Detai ls LastModified Time None Recorded Concern Status LastModified by Organization Details LastModified Time None Recorded Advance Directives Directive None Recorded Payers Insurance Date Sequence Insurance Name Policy Number Policy Guajardo Covered Member ID Guajardo Member ID Guarantor Name 10/12/2024 1 [facility] - DOS PRIOR TO 2022 - DUAL ELIGIBLE (MEDICARE REPLACEMENT/ADV ANTAGE - HMO) Anthony Segura [id number] Anthony Segura 10/12/2024 1 [facility] - DOS ON OR AFTER 2022 - DUAL ELIGIBLE - FDC OPTIONS AND ONE CARE (MEDICARE REPLACEMENT/ADV ANTAGE - HMO) Anthony Segura [id number] Anthony Segura Notes Date Note Type Note [...] but would like evaluation of LLE by [facility] team today Jeferson Mccray MD [address] [place] [address],[address], [place], [phone], [employer] [facility] 09/13/2022 16:47:21
== END 2025-05-28 13:16 | disposition home or self-care (01) ==
LOC: HO.LAB 13:15
PROVIDERS: PCP Physician Assistant; Visit Provider Student in an Organized Health Care Education/Training Program
DX: J10.1 Influenza due to other identified influenza virus with other respiratory manifestations (principal); J45.51 Severe persistent asthma with (acute) exacerbation; R05.9 Cough, unspecified
CPT/HCPCS: 87637; 99212